=== PATIENT | male | born 1950 | race Caucasian/White ===

== ENCOUNTER 2020-07-17 12:54 | Outpatient (REF) | payer OTHER, SELFPAY ==
--- NOTE | 2020-07-17 12:58 | CT_ITS ---
EXAMINATION: CT HEAD WITHOUT CONTRAST CLINICAL INFORMATION: Dizziness and headaches COMPARISON: None TECHNIQUE: Contiguous axial imaging was performed from the skull base to vertex without intravenous administration of contrast. This CT examination was performed using dose optimization techniques as appropriate, variously including the following: *Automated exposure control *Adjustment of mA and/or kV according to patient size (this includes techniques or standardized protocols for targeted exams where dose is matched to indication/reason for exam; i.e. extremities or head) *Use of iterative reconstruction technique DLP: 86 mGy-cm FINDINGS: There is no evidence of acute intracranial hemorrhage or territorial infarction. No abnormal mass effect or midline shift is seen. Flores to white matter differentiation is well preserved. No extra-axial fluid collections are identified. The ventricles are normal in size. There is no abnormal attenuation within the brain parenchyma. The osseous structures and soft tissues are normal. The mastoid air cells and visualized portions of the paranasal sinuses are well aerated. CT/CT head/brain wo con IMPRESSION: No acute intracranial process seen.
== END 2020-07-17 12:55 | disposition home or self-care (01) ==
LOC: HO.CT 12:54
PROVIDERS: PCP Internal Medicine Geriatric Medicine; Visit Provider Nurse Practitioner Primary Care
DX: R42 Dizziness and giddiness (principal); R51.9 Headache, unspecified
CPT/HCPCS: 70450

== ENCOUNTER → 2020-07-19 14:06 | Outpatient (REF) | payer OTHER, SELFPAY ==
--- NOTE | 2020-07-19 14:00 | CA_ITS ---
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 The visually estimated ejection fraction is between 65-70%. - The basal inferior segment is hypokinetic. - There is mild mitral valve regurgitation. Findings Left Ventricle Normal left ventricular cavity size. There is mildly increased left ventricular wall thickness. The left ventricular systolic function is normal. The visually estimated ejection fraction is between 65-70%. There is no evidence of regional wall motion abnormalities. Diastolic function is normal for age. Wall Motion Rest Echo Findings The basal inferior segment is hypokinetic. Right Ventricle Normal right ventricular cavity size and systolic function. Atria The left atrium is normal in size. The right atrium is normal in size. Aortic Valve There is a normal trileaflet aortic valve. There is no aortic valve stenosis. There is no aortic valve regurgitation. Mitral Valve The mitral valve appears normal. There is mild mitral valve regurgitation. There is no mitral valve stenosis. Pulmonic Valve The pulmonic valve was not well visualized. Tricuspid Valve Normal tricuspid valve structure. There is trace tricuspid valve regurgitation. The pulmonary artery systolic pressure is normal. Great Vessels The aortic annulus, sinuses of valsalva, and asc aorta are normal in size. Venous The inferior vena cava is normal in size and collapses greater than 50% with inspiration. Pericardium/Pleural There is no evidence of pericardial effusion. Prior Study Comparison No prior study available for comparison. Measurements 2D Linear Measurements IVSd: 1.36 0.6-0.9/0.6-1.0 cm LVIDd: 4.54 3.9-5.3/4.2-5.9 cm LVIDd Index: 2.38 2.4-3.2/2.2-3.1 cm/m2 LVIDs: 2.81 2.0-3.6 cm LVPWd: 1.23 0.7-1.1 cm Ao Root: 3.60 2.1-3.5 cm LA Diam: 3.90 2.7-3.8/3.0-4.0 cm LAIDs Index: 2.04 1.5-2.3 cm/m2 LV Mass: 279.65 67-162/88-224 g LV Mass Index: 146.41 43-95/49-115 g/m2 LVOT Diam: 2.10 3.0+(-)1.3 cm Mitral Valve MV Pk E: 0.67 MV PK A: 0.78 MV Decel Time: 211.00 E/A: 0.90 E'Lateral: 10.60 E'Medial: 5.61 E/E' Med: 11.90 E/E' Lat: 6.30 PHT: 62.00 MVA PHT: 3.55 Decel Wagoner: 3.17 Aortic Valve AoV Pk Naman: 1.52 AoV Mn Naman: 0.90 AoV VTI: 0.30 AoV Pk Grad: 9.00 Aov Mn Grad: 4.00 FLACA Cont.VTI: 2.44 LVOT LVOT Pk Naman: 0.90 LVOT Mn Naman: 0.59 LVOT VTI: 0.21 LVOT Pk Grad: 3.00 LVOT Mn Grad: 2.00 LVOT Diam: 2.10 LVOT Area: 3.46 Diastolic Function MV Pk E: 0.67 MV Pk A: 0.78 E/A: 0.90 E'Medial: 5.61 E/E' Med: 11.90 E' Laterial: 10.60 E/E' Lat: 6.30 Tricuspid Valve TR Pk Naman: 2.23 TR Pk Grad: 20.00 RA Press: 3.00 RVSP: 23.00 Great Vessels Aorta Ao Root-2D: 3.60 2.0-3.7 cm Ao Asc: 3.10 2.1-3.4 cm Pulmonary Valve PV Pk Naman: 1.20 Peak PV Grad: 6.00 Updated in Other Vendor System with Status of Final Gabe Beauchamp MD electronically signed on 07/20/2020 10:24:57 AM with status of Final
== END ==
LOC: HO.CARD 14:06
PROVIDERS: Visit Provider Internal Medicine Geriatric Medicine
DX: I10 Essential (primary) hypertension (principal); I25.10 Atherosclerotic heart disease of native coronary artery without angina pectoris; R60.0 Localized edema
CPT/HCPCS: 93306

== ENCOUNTER 2020-11-24 15:39 | Outpatient (REF) | payer MEDICARE, SELFPAY ==
--- NOTE | ~2020-11-24 | US_ITS ---
EXAMINATION: US VENOUS ULTRASOUND WITH DOPPLER LOWER EXTREMITY, RIGHT CLINICAL INFORMATION: Right leg edema. COMPARISON: None TECHNIQUE: Ultrasound of the deep veins is performed from the hip to the calf with compression sonography and color and pulse Doppler assessment. Spectral analysis with color-flow imaging is performed. FINDINGS: There is normal venous compression and respiratory variation and augmented flow. The visualized common femoral vein, superficial femoral vein, profunda femoral vein, popliteal vein, and the trifurcation region shows no evidence of deep venous thrombosis. There is no significant popliteal fossa cyst. There is small joint effusion suspected. If the patient's symptoms persist, followup ultrasound in 5 days 7 days might be of value to exclude proximal propagation from a non-visualized calf vein. US/US venous duplex LE RT IMPRESSION: No DVT demonstrated in the right lower extremity. Suspect small joint effusion.
== END 2020-11-24 15:40 | disposition home or self-care (01) ==
LOC: HO.US 15:39
PROVIDERS: PCP Internal Medicine Geriatric Medicine; Visit Provider Internal Medicine Geriatric Medicine
DX: R60.0 Localized edema (principal)
CPT/HCPCS: 93971

== ENCOUNTER 2021-01-22 14:48 | Outpatient (REF) | payer MEDICARE, SELFPAY ==
--- NOTE | ~2021-01-22 | US_ITS ---
EXAMINATION: US VENOUS ULTRASOUND WITH DOPPLER LOWER EXTREMITY, RIGHT CLINICAL INFORMATION: Pain in the calf and knee COMPARISON: Previous exam November 2020 TECHNIQUE: Ultrasound of the deep veins is performed from the hip to the calf with compression sonography and color and pulse Doppler assessment. Spectral analysis with color-flow imaging is performed. FINDINGS: There is normal venous compression and respiratory variation and augmented flow. The visualized common femoral vein, superficial femoral vein, profunda femoral vein, popliteal vein, and the trifurcation region shows no evidence of deep venous thrombosis. There is a 4.6 x 1.2 x 1.6 cm Isaac's cyst. US/US venous duplex LE RT IMPRESSION: No DVT demonstrated in the right lower extremity. Isaac's cyst.
== END 2021-01-22 14:49 | disposition home or self-care (01) ==
LOC: HO.US 14:48
PROVIDERS: PCP Internal Medicine Geriatric Medicine; Visit Provider Nurse Practitioner Primary Care
DX: M79.661 Pain in right lower leg (principal)
CPT/HCPCS: 93971

== ENCOUNTER 2021-06-15 12:34 | Outpatient (REF) | payer MEDICARE, SELFPAY ==
--- NOTE | ~2021-06-15 | XR_ITS ---
EXAMINATION: XR FOOT, RIGHT CLINICAL INFORMATION: Pain right foot toes. COMPARISON: None TECHNIQUE: AP, lateral, and oblique views of the right foot. FINDINGS: Mild osteoarthrosis is noted at the first MTP joint. The bony alignments are intact. The cortices are intact. The soft tissues are unremarkable. 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
== END 2021-06-15 12:35 | disposition home or self-care (01) ==
LOC: HO.XRAY 12:34
PROVIDERS: Absent Provider Internal Medicine Geriatric Medicine; PCP Internal Medicine Geriatric Medicine; Visit Provider Internal Medicine
DX: M79.671 Pain in right foot (principal)
CPT/HCPCS: 73630

== ENCOUNTER 2023-02-17 08:56 | Outpatient (REF) | payer MEDICARE, SELFPAY | END 2023-02-17 08:57 | disposition home or self-care (01) | LOC: HO.HHCL 08:56 | PROVIDERS: Visit Provider Internal Medicine Geriatric Medicine | DX: Z12.5 Encounter for screening for malignant neoplasm of prostate (principal); N40.1 Benign prostatic hyperplasia with lower urinary tract symptoms; R35.1 Nocturia; Z79.899 Other long term (current) drug therapy | CPT/HCPCS: 36415; 80053; 80061; 84153 ==

== ENCOUNTER 2023-03-26 14:04 | Outpatient (AMB) | payer MEDICARE, SELFPAY ==
--- NOTE | 2023-03-26 14:17 | MHC.OFFVIS ---
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 He states doing some work on his water heater he was on a ladder, till the ladder slipped under him and he was trying to reach for the ladder. He reports that he was hanging by his arm causing the trauma to his elbow. Patient reports no pain, he was prescribed some topical cream to help with the pain but a lump appeared on his elbow. Denies numbness and tingling. 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 He states he was doing some work on his water heater climbed on a ladder when the ladder slipped, leaving him hanged by his arm while trying to reach the ladder and causing trauma to his elbow. He was seen by his PCP on 02/07/23 where he was prescribed a topical cream to help with his pain. He currently states he has no pain but he does have a lump on his elbow. He also c/o pain with applying pressure on his elbow and experiences discomfort with any movement. He denies any numbness or tingling. [facility] Social History (Updated 03/26/23 @ 14:30 by Penny Luna Jermaine) Alcohol intake: never Patient Tobacco Use Status: Never used Tobacco Current occupational status: disabled Current occupation: right hand dominant Review of Systems Const All systems reviewed & are unremarkable except as noted in HPI and below Physical Exam Vital Signs: BMI result Body Mass Index 28.7 Const General: cooperative, healthy appearing, comfortable, no acute distress, well developed and alert Orientation/consciousness: patient oriented x3 HEENT Head: Yes normal to inspection, Yes normocephalic and Yes atraumatic Eyes General: appearance normal, both eyes and all related structures Resp Effort & Inspection: normal respiratory effort and able to speak in complete sentences Cardio Rate: regular rate Peripheral pulses: Peripheral pulses 2+ throughout GI Palpation (GI): Soft to palpation Skin Lesions: no lesions Rashes: no rashes Neuro General: patient oriented x3 Extrem Other: Right elbow: Normal to inspection. He does have a trace olecranon bursitis. No redness, warmth or tenderness to palpation. He has full ROM without pain. NVI. Results Reviewed Results Reviewed: Xrays were obtained in the office today and personally reviewed by me of the right elbow show bone spur over the olecranon with possible avulsion fracture on the medial and lateral epicondyle Assessment & Plan Assessment & Plan (1) Bursitis of right elbow: Code(s): M70.31 - Other bursitis of elbow, right elbow Plan We discussed conservative management, which includes compression, NSAIDs and activity modifications. If symptoms worsen, the area becomes red, hot and painful, they should return to see me. Otherwise, PRN. Orders: Orders XR elbow RT min 3V 03/26/23 M25.521 - Pain in right elbow Patient Instructions: Scribed for Winston Rodriguez PA-C, by Angel Hadley medical insurance coding specialist, on 03/26/2023 at 2:00 PM EST. I, Winston Rodriguez PA-C, have personally reviewed and agree with the information entered by the scribe. Coding Level of Care Code New Pt Level 3 (22247) Diagnoses Bursitis of right elbow M70.31
[2023-03-26 14:30] VITALS: BMI 28.7
== END 2023-03-26 15:01 | disposition home or self-care (01) ==
PROVIDERS: PCP Internal Medicine Geriatric Medicine; Visit Provider Physician Assistant
DX: M70.31 Other bursitis of elbow, right elbow (principal)
CPT/HCPCS: 99203

== ENCOUNTER 2023-03-26 14:04 | Outpatient (REF) | payer MEDICARE, SELFPAY ==
--- NOTE | ~2023-03-26 | XR_ITS ---
EXAMINATION: XR ELBOW, RIGHT CLINICAL INFORMATION: Pain. COMPARISON: None available. TECHNIQUE: AP, lateral, and oblique views of the right elbow. FINDINGS: The bones and soft tissues are normal. No fracture or joint effusion. A small well-corticated accessory ossification center is noted adjacent to the bilateral humeral epicondyles. There is an enthesophyte arising from the olecranon process. There is soft tissue swelling adjacent to the olecranon process, suggestive of olecranon bursitis. Alignment is anatomic. The joint spaces are maintained. XR/XR elbow RT min 3V IMPRESSION: 1. No fracture, dislocation or right elbow joint effusion is seen. 2. Soft tissue swelling adjacent to the olecranon process suggests possible olecranon bursitis.
== END 2023-03-26 14:05 | disposition home or self-care (01) ==
LOC: HO.HOSX 14:04
PROVIDERS: PCP Internal Medicine Geriatric Medicine; Visit Provider Physician Assistant
DX: M25.521 Pain in right elbow (principal); M70.31 Other bursitis of elbow, right elbow
CPT/HCPCS: 73080; 99202

== ENCOUNTER 2023-07-07 14:55 | Outpatient (REF) | payer MEDICARE, SELFPAY ==
[2023-07-07 16:33] LABS: Anion Gap 11 (12-20); Blood Urea Nitrogen 13 mg/dL (9-16); Calcium 10.2 mg/dL (8.4-10.2); Carbon Dioxide 28 mmol/L (22-29); Chloride 101 mmol/L (96-108); Estimated Glomerular Filt Rate > 60; Glucose Random 99 mg/dL (60-115); Potassium 3.4 mmol/L (3.3-5.1); Sodium 137 mmol/L (135-145)
== END 2023-07-07 14:56 | disposition home or self-care (01) ==
LOC: HO.HHCL 14:55
PROVIDERS: Visit Provider Internal Medicine Geriatric Medicine
DX: I10 Essential (primary) hypertension (principal)
CPT/HCPCS: 36415; 80048

== ENCOUNTER 2024-03-16 10:12 | Outpatient (REF) | payer MEDICARE, SELFPAY ==
[2024-03-16 11:23] LABS: MANUAL DIFF FLAG NO
[2024-03-16 11:30] LABS: Basophils Percent Auto 0.5 % (0-2); Eosinophils Absolute Auto 0.6 X10*3/uL (0.0-0.4); Eosinophils Percent Auto 8.1 % (0-4); Hematocrit 46.9 % (42.0-52.0); Hemoglobin 16.2 g/dl (14.0-18.0); Imm Gran Abs Auto 0.03 X10*3/uL (0.00-0.03); Imm Gran Pct Auto 0.4 % (0.0-0.4); Lymphocytes Percent Auto 27.6 % (20-40); Mean Corpuscular HGB Conc 34.5 g/dl (31.0-36.0); Mean Corpuscular Hemoglobin 29.7 pg (27.0-33.0); Mean Corpuscular Volume 85.9 fL (80.0-98.0); Mean Platelet Volume 10.5 fL (9.4-12.4); Monocytes Absolute Auto 0.6 X10*3/uL (0.1-1.2); Monocytes Percent Auto 8.3 % (2-11); Neutrophils Percent Auto 55.1 % (45-73); Platelet Count 141 X10*3/uL (160-400); Red Blood Count 5.46 X10*6/uL (4.60-5.80); White Blood Count 7.3 X10*3/uL (4.8-10.8)
[2024-03-16 11:48] LABS: Alanine Aminotransferase 34 U/L (0-40); Albumin Level 4.3 g/dL (3.5-5.0); Alkaline Phosphatase 114 U/L (39-117); Anion Gap 12 (12-20); Aspartate Amino Transferase 26 U/L (5-37); Bilirubin Total 0.4 mg/dL (0.0-1.0); Blood Urea Nitrogen 14 mg/dL (9-16); Calcium 9.8 mg/dL (8.4-10.2); Carbon Dioxide 29 mmol/L (22-29); Chloride 103 mmol/L (96-108); Cholesterol 114 mg/dL (<200); Estimated Glomerular Filt Rate > 60; Glucose Random 97 mg/dL (60-115); HDL Cholesterol 60 mg/dL (>40); LDL Cholesterol Calculated 43 mg/dL (<100); Potassium 3.7 mmol/L (3.3-5.1); Sodium 140 mmol/L (135-145); Total Protein 6.7 g/dL (6.5-8.0); Triglycerides 58 mg/dL (<150)
== END 2024-03-16 10:13 | disposition home or self-care (01) ==
LOC: HO.HHCL 10:12
PROVIDERS: Visit Provider Internal Medicine Geriatric Medicine
DX: I10 Essential (primary) hypertension (principal); Z79.899 Other long term (current) drug therapy
CPT/HCPCS: 36415; 80053; 80061; 85025

== ENCOUNTER 2024-11-15 09:14 | Outpatient (REF) | payer OTHER, SELFPAY ==
--- OUTSIDE RECORDS SUMMARY | 2024-11-15 10:18 | XMS_ITS | Encounter Summary ---
Author Organization [facility] Address [address] [place] [address] Care Team Providers Care Turntable Engineer Name Role Phone Name, Braydon COLE Primary Care Provider [phone] Encounter Details Date Type Department Care Team (Late st Contact Info) Description 01/02/2023 Orders Only [facility] [address], [place] [id number] Xiomara Young LPN Social History Tobacco Use Types Packs/Day Years Used Date Smoking Tobacco: Never Assessed Sex and Gender Information Value Date Recorded Sex Assigned at Male 06/10/2022 10:17 AM EDT Legal Sex Male 10:17 AM EDT Gender Identity Male 06/10/2022 10:17 AM EDT Sexual Orientation Straight 06/10/2022 10 :17 AM EDT documented as of this encounter Plan of Treatment Not on file documented as of this encounter Visit Diagnoses Not on filedocumented in this encounter Care Teams Turntable Engineer Relationship Specialty Start Date End Date Name, MD Braydon [address] [place] [address] PCP - General Family Medicine 08/11/18 documented as of this encounter
--- OUTSIDE RECORDS SUMMARY | 2024-11-15 10:18 | XMS_ITS | Clinical Summary ---
Author Organization [employer] Address [address] [facility] [address] [place] [address] Care Team Providers Care Delivery Analyst Name Role Phone Name, Braydon COLE Primary Care Provider Allergies Active Allergy Reactions Criticality Noted Date Comments Penicillins Anaphylaxis,Swelling High 12/07/2009 Medications OXcarbazepine (Trileptal) 600 MG tablet TAKE 1 TABLET TWICE A DAY BY MOUTH FOR 90 DAYS 04/06/20 23 Active Diclofenac Sodium 1 % gel USE ONCE A DAY ON THE AFFECTED HAND 100 g 1 06/30/20 23 Active aspirin 81 MG EC tabletIndicatio ns:Transient Ischemic Attacks Take 81 mg by mouth Once per day. Active finasteride (Proscar) 5 MG tabletIndicatio ns:Benign prostatic hyperplasia, unspecified whether lower urinary tract symptoms present TAKE 1 TABLET BY MOUTH EVERY DAY 90 tablet 1 05/27/20 24 Active fluticasone (Flonase) 50 MCG/ACT nasal spray SPRAY 1 SPRAY INTO EACH NOSTRIL TODOS LOS MCGUIRE 48 mL 08/23/19 25 Active hydroCHLOROthia zide 12.5 MG tabletIndicatio ns:Hypertension , unspecified type TOME 1 TABLETA POR VIA ORAL TODOS [place] MCGUIRE 90 tablet 08/23/19 25 Active cetirizine (ZyrTEC) 10 MG tablet Take 1 tablet (10 mg) by mouth if needed each day for rhinitis. 30 tablet 3 10/07/19 25 026 Active guaiFENesin (Mucinex) 600 MG 12 hr tablet Take 2 tablets (1,200 mg) by mouth if needed in the morning and at bedtime for cough or congestion. Do not crush, chew, or split. 30 tablet 10/07/19 25 026 Active atorvastatin (Lipitor) 40 MG tabletIndicatio ns:High cholesterol TOME HALIE TABLETA TODOS [place] MCGUIRE 90 tablet 3 10/14/19 25 Active omeprazole (PriLOSEC) [address] capsuleIndicati ons:Heartburn TOME 1 CAPSULA POR VIA ORAL 30 MINUTES TO 1 HOUR BEFORE A MEAL 90 capsule 1 10/14/19 25 Active tamsulosin (Flomax) 0.4 MG 24 hr capsuleIndicati ons:Benign prostatic hyperplasia with nocturia TOME 2 CAPSULAS POR VIA ORAL AL ACOSTARSE 180 capsule 10/14/19 25 Active amLODIPine (Norvasc) 10 MG tabletIndicatio ns:Hypertension , unspecified type TAKE 1 TABLET BY MOUTH EVERY MORNING 90 tablet 1 10/21/19 25 Active albuterol 108 (90 Base) MCG/ACT inhaler INHALE DANDO 2 SOPLIDOS CADA 4 HORAS CUANDO SEA NECESARIO PARA LA FALTA DE RESPIRACION/LA SIBILANCIA 18 g 10/30/19 25 Active cyanocobalamin (Vitamin B-12) 1000 MCG tablet TOME 1 TABLETA POR VIA ORAL TODOS [place] MCGUIRE 90 tablet 1 11/02/19 25 Active amLODIPine (Norvasc) 10 MG tabletIndicatio ns:Hypertension , unspecified type TAKE 1 TABLET BY MOUTH EVERY MORNING 90 tablet 1 04/22/20 24 025 Discontinued cyanocobalamin (Vitamin B-12) 1000 MCG tablet TOME 1 TABLETA POR VIA ORAL TODOS [place] MCGUIRE 90 tablet 1 05/03/20 24 025 Discontinued albuterol 108 (90 Base) MCG/ACT inhaler Inhale 2 puffs every 4 (four) hours if needed for shortness of breath or wheezing. 18 g 10/07/19 25 025 Discontinued benzonatate (Tessalon Perles) 100 MG capsule Take 1 capsule (100 mg) by mouth if needed in the morning, at noon, and at bedtime for cough for up to 10 days. Do not crush or chew. 30 capsule 10/07/19 25 025 acetaminophen (Tylenol 8 Hour) 650 MG ER tablet Take 1 tablet (650 mg) by mouth every 8 (eight) hours if needed for mild pain. Do not crush, chew, or split. 40 tablet 1 10/07/19 25 025 Active Problems Problem Noted Date Diagnosed Date CVA (cerebrovascular accident) 03/15/2024 History of BPH 03/15/2024 Chronic knee pain 03/15/2024 Olecranon bursitis of right elbow 05/07/2023 Cerebrovascular accident (CVA) 02/07/2023 History of male genital system disorder 02/08/20 23 Myocardial infarction 02/07/2023 Synovial cyst of knee 02/07/2023 Coronary arteriosclerosis in patient with history of previous myocardial infarction 02/04/2022 CAD (coronary artery disease) 02/15/2021 Overview (02/07/2023): Last Assessment & Plan: The patient was noted to have mild coronary artery disease on her left heart catheterization done in 2015 after he presented to the hospital with a non- STEMI. Therefore, given the left heart catheterization results, no intervention was needed and medical management was recommended. The patient continues on medical therapy with aspirin, atorvastatin, and metoprolol. Subsequently, in July 2017, he underwent a nuclear stress test that did not show any evidence of ischemia or infarct. On today's visit, the patient tells me that he has been experiencing episodes of chest discomfort. The description of his symptoms is consistent with atypical chest discomfort. The patient visited the emergency room due to 1 of these episodes of chest discomfort. At this point, given his known coronary artery disease, I will proceed with a new stress test to rule out ischemia as a cause of the patient's symptoms. Given his baseline ECG abnormalities (nonspecific T wave abnormality in the inferolateral leads) I will order a stress echocardiogram. Dyslipidemia 02/15/2021 Overview (03/15/2024): Last Assessment & Plan: The patient has a history of hyperlipidemia. Recent lipid panel showed adequate cholesterol control. We will continue his current therapy with atorvastatin. Numbness of upper limb 09/16/2018 Benign prostatic hyperplasia with lower urinary tract symptoms 10/08/2016 Essential hypertension 10/08/2016 Overview (03/15/2024): Last Assessment & Plan: The patient has a history of arterial hypertension. The patient's blood pressure today was noted to be well controlled. We'll continue the current antihypertensive medication regimen. History of cholecystectomy 10/08/2016 Magnetic resonance imaging of brain abnormal History of pernicious anemia 03/07/2015 Overview (02/07/2023): Component Latest Ref Rng 03/03/2015 11:56 AM INTRINSIC FACTOR ANTIBODY 0.0-1.1 AU/mL 7.1 (A) Seizure disorder 03/03/2015 Vitamin B12 deficiency 12/26/2011 Allergic rhinitis 12/07/2009 Resolved Problems Problem Noted Date Diagnosed Date Resolved Date Chest pain 08/30/2014 03/18/2024 Encounters Date Type Department Care Team Description 11/12/2024 3:30 PM EDT Office Visit [facility] [address] [place] [address] Braydon Owusu MD Essential hypertension (Primary Dx); History of pneumonia; Benign prostatic hyperplasia with nocturia 11/12/2024 Travel 10/30/2024 Refill [facility] [address] [place] [address] Braydon Owusu MD 10/29/2024 Refill [facility] [address] [place] [address] Lily Watt DO 10/21/2024 Telephone [facility] [address] [place] [address] Braydon Owusu MD ER Follow-up 10/20/2024 Telephone [facility] [address] [place] [address] Braydon Owusu MD 10/20/2024 Refill [facility] [address] [place] [address] Braydon Owusu MD Hypertension, unspecified type 10/13/2024 Refill [facility] [address] [place] [address] Braydon Owusu MD High cholesterol; Heartburn; Benign prostatic hyperplasia with nocturia 10/07/2024 9:00 AM EST Office Visit [facility] [address] [place] [address] Lily Watt DO Influenza A (Primary Dx) 09/09/2024 Telephone [facility] [address] [place] [address] Farhana Tilley MA October recalls 08/21/2024 Refill [facility] [address] [place], [place] [phone] Name, MD Braydon Hypertension, unspecified type from Last 3 Months Immunizations Name Administration Dates Next Due Influenza High-dose Quadriva lent Preservative Free 06/18/2022,05/09/2020 Influenza injectable quadriv alent IIV4 with preservative 06/11/2017,07/12/2016 Influenza injectable quadriv alent preservative free 05/07/2023,06/25/2021,05/25/2015 Influenza, High Dose Seasona l, Preservative Free 04/23/2019 Influenza, IIV3, injectable 05/25/2015, 2,05/03/2010 Pneumococcal Conjugate PCV 13 06/11/2017 Pneumococcal Polysaccharide PPSV23 06/28/2019, TD (adult), 2 Lf tetanus tox oid, preservative free, adsorbed 06/14/2021 Tdap 12/18/2021,12/25/2010 Social History Tobacco Use Types Packs/Day Years Used Date Smoking Tobacco: Never Smokeless Tobacco: Never Tobacco Cessation:Counseling Given: Not Answered Alcohol Use Standard Drinks/Week Comments Never 0 (1 standard drink = 0.6 oz pur e alcohol) Depression Answer Date Recorded Patient Health Questionnaire-9 Score 3 11/12/2024 Patient Health Questionnaire-9 Score 3 11/12/2024 Last PHQ-9: Questionnaire Data Not on file 0 11/12/2024 Housing Stability Answer Date Recorded What is your housing situation today? I have casey samano 06/10/[address] you li ve. Do you have problems with any of the following? None of the above 06/10/2023 Food Insecurity Answer Date Recorded Within the past 12 months, y ou worried that your food would run out before you got money to buy more: Never True 06/10/2023 Within the past 12 months,th e food you bought just didn't last and you didn't have enough money to get more: Never True Transportation Answer Date Recorded In the past 12 months, has l ack of transportation kept you from medical appts, meetings, work or from getting things needed for daily living? No 06/10/2023 Utilities Answer Date Recorded In the past 12 months, has t he [employer], gas, oil or water company threatened to shut off services in your home? No 06/10/2023 Depression Answer Date Recorded Patient Health Questionnaire-2 Score 3 11/12/2024 Sex and Gender Information Value Date Recorded Sex Assigned at Male 06/10/2022 10:17 AM EDT Legal Sex Male 10:17 AM EDT Gender Identity Male 06/10/2022 10:17 AM EDT Sexual Orientation Straight 06/10/2022 10 :17 AM EDT Last Filed Vital Signs Vital Sign Reading Time Taken Comments Blood Pressure 119/68 11/12/2024 4:08 PM EDT Pulse 78 11/12/2024 3:45 PM EDT Temperature 36.7 ??C (98 ??F) 11/12/2024 3:45 PM EDT Respiratory Rate 12 11/12/2024 3:45 PM EDT Oxygen Saturation 94% 11/12/2024 3:45 PM EDT Inhaled Oxygen Concentration - - Weight 81.5 kg (179 lb 9.6 oz) 11/12/2024 3:45 P M EDT Height 167.6 cm (5' 6 ) 11/12/2024 3:45 PM EDT Body Mass Index 28.99 11/12/2024 3:45 PM EDT Plan of Treatment Health Maintenance Due Date Last Done Comments CT Colonography 1950 Colonoscopy 1950 Colorectal Cancer Screening 1950 FIT DNA/Cologuard 1951 FIT 1950 FOBT 1950 Sigmoidoscopy 1951 Alcohol/Substance Use Screening 1963 Hepatitis C Screening 12/09/1969 Zoster Vaccines (1 of 2) 12/09/2001 RSV Patients and Patients Aged 60 years or older (1 - Risk 60-74 years 1-dose series) 2011 SDOH Screening 02/08/2024 02/07/2023 COVID-19 Vaccine (4 - season) 2024 06/25/2022, 06/25/2021, 10/25/2020 Influenza Vaccine (#1) 2024 , 06/18/2022, 06/25/2021, Additional history exists Depression Screening 11/12/2025 11/12/2024, 11/13/19 Tobacco Screening 11/12/2025 11/12/2024 Lipid Panel 03/16/2029 03/16/2024, 02/08, 06/25/2022, Additional history exists DTaP/Tdap/Td Vaccines (4 - Td or Tdap) 12/19/2031 12/18/2021, 06/14/2021, 12/25/2010 Pneumococcal Vaccine: 50+ Years Completed 06/28/2019, 06/11/2017, 11/10/2016 HIB Vaccines Aged Out No longer eligi ble based on patient's age to complete this topic HPV Vaccines Aged Out No longer eligi ble based on patient's age to complete this topic Hepatitis A Vaccines Aged Out No long er eligible based on patient's age to complete this topic Hepatitis B Vaccines Aged Out No long er eligible based on patient's age to complete this topic IPV Vaccines Aged Out No longer eligi ble based on patient's age to complete this topic Meningococcal Vaccine Aged Out No ian quoc eligible based on patient's age to complete this topic RSV under 20 months Aged Out No longe r eligible based on patient's age to complete this topic Rotavirus Vaccines Aged Out No longer eligible based on patient's age to complete this topic Procedures Procedure Name Priority Date/Time Associated Diagnosis Comments POCT INFLUENZA B (ID NOW RAPID MOLECULAR) Routine 10/07/2024 9:06 AM EST Influenza A POCT INFLUENZA A (ID NOW RAPID MOLECULAR) Routine 10/07/2024 9:06 AM EST Influenza A POCT RAPID COVID ANTIGEN Routine 10/07/2024 9:06 AM EST Influenza A LIPID PANEL, STANDARD Routine 03/16/2024 10:14 AM EDT Essential hypertension On statin therapy from Last 3 Months or Most Recently Relevant to Health Maintenance Results * Influenza B (ID NOW Rapid Molecular) (10/07/2024 9:06 AM EST) Pathologist [facility] Influenza B Negative Negative, Indeterminate [facility] Swab 10/07/2024 9:06 AM EST Lily Watt DO POINT OF CARE TEST ENTER/JENNY T ORDERABLES Final Result Performing Organization Address [facility]/ZIP Co de Phone Number [facility] [address] [place] [phone] * (ABNORMAL) Influenza A (ID NOW Rapid Molecular) (10/07/2024 9:06 AM EST) Pathologist [facility] Influenza A Positive( A) Negative, Indeterminate [facility] Swab 10/07/2024 9:06 AM EST Lily Watt DO POINT OF CARE TEST ENTER/JENNY T ORDERABLES Final Result Performing Organization Address [facility]/ZIP Co de Phone Number [facility] [address] [place] [phone] * POCT Rapid COVID Ag (10/07/2024 9:06 AM EST) Rapid COVID Ag Negative [facility] Swab 10/07/2024 9:06 AM EST Lily Watt DO POINT OF CARE TEST ENTER/JENNY T ORDERABLES Final Result Performing Organization Address [facility]/ZIP Co de Phone Number [facility] [address] [place] [phone] * Lipid Panel, Standard (03/16/2024 10:14 AM EDT) Triglycerides 58 <150 mg/dL [facility] Comment:Desirable Triglyceri de: less than 150 mg/dLBorderline High Triglyceride 150-199 mg/dLHigh Triglyceride: 200-499 mg/dLVery High Triglyceride: greater than or equal to 5OO mg/dL Cholesterol 114 <200 mg/dL [facility] Comment:Desirable Cholestero l: less than 200 mg/dLBorderline High Cholesterol: 200-239 mg/dLHigh Cholesterol: greater than 239 mg/dL LDL Cholesterol Calculated 43 <100 mg/dL [facility] Comment:Desirable LDL: less than 100 mg/dLNear Optimal/Above Optimal LDL: 110- 129 mg/dLBorderline High LDL: 130-159 mg/dLHigh LDL: 160-189 mg/dLVery High LDL: greater than or equal to 190 mg/dL HDL Cholesterol 60 >40 mg/dL [facility] Comment:Desirable HDL: great er than 40 mg/dL Note: This HDL assay may give artificially low results in patients with liver disease. Blood Venous blood specimen / Unknown 03/16/2024 10:14 AM EDT 03/16/2024 11:14 AM EDT us Braydon Owusu MD LAB BLOOD ORDERABLES Final Resul t [facility] [address] [place] [phone] from Last 3 Months or Most Recently Relevant to Health Maintenance Insurance [facility] Care Teams Delivery Analyst Relationship Specialty Start Date End Date Name, MD Braydon [address] [place] [phone] PCP - General Family Medicine 08/11/18
--- OUTSIDE RECORDS SUMMARY | 2024-11-15 10:18 | XMS_ITS | Encounter Summary ---
Author Organization [facility] Address [address] [facility] 7[address] [place] [address] Care Team Providers Care Clinical Psychologist Name Role Phone Name, Braydon COLE Primary Care Provider [phone] Encounter Details Date Type Department Care Team (Latest Contact Info) Description 08/06/2021 Abstract [facility] CONVERSION[facility] Dental, Provider, DDS Social History Tobacco Use Types Packs/Day Years [...] on filedocumented in this encounter Care Teams Clinical Psychologist Relationship Specialty Start Date End Date Name, MD Braydon [address] [place] [phone] PCP - General Family Medicine 08/11/18 documented as of this encounter
--- OUTSIDE RECORDS SUMMARY | 2024-11-15 10:18 | XMS_ITS | Clinical Summary ---
Author Organization [facility] Address [address] [place] [address] Phone Care Team Providers Care Plastics Bench Mechanic Name Role Phone Name, Braydon COLE Primary Care Provider [phone] Allergies Active Allergy Reactions Criticality Noted Date Comments Penicillins Anaphylaxis,Swelling High 12/07/2009 Medications albuterol 2.5 mg /3 mL (0.083 %) nebulizer solutionIndica tions:Pneumoni a of right lower lobe due to infectious organism Take 3 mL (2.5 mg total) by nebulization every 6 (six) hours if needed for wheezing. 75 mL 5 11/20/19 25 Active doxycycline (VIBRAMYCIN) 100 mg capsule Take 1 capsule (100 mg total) by mouth 2 (two) times a day for 7 days. Take with at least 8 ounces (large glass) of water, do not lie down for 30 minutes after 14 each 5 10/28/19 25 Encounters Date Type Department Care Team Description 10/20/2024 12:13 AM EDT - 10/20/2024 3:33 AM EDT Emergency [facility] Emergency [address] [place] [address] Mario Taylor MD Pneumonia of right lower lobe due to infectious organism (Primary Dx) Discharge Disposition: Home or Self Care from Last 3 Months Surgical History Surgery Date Site/Laterality Comments HERNIA REPAIR PROCEDURE: HISTORICAL HERNIA REPAIR/ING COLONOSCOPY 06/14/2010 PROCEDURE: HI COLONOSCOPY FLX DX W/COLLJ SPEC WHEN PFRMD OTHER SURGICAL HISTORY PROCEDURE: HISTORY OTHER; COMMENT: Laparoscopic cholecystectomy Medical History Medical History Date Comments CVA (cerebrovascular accident) (CMS/HCC) DX:CVA (cerebrovascular accident) (HCC) History of BPH DX:History of BP H Seizure disorder (CMS/HCC) DX:Se izure disorder (HCC) Seasonal allergic rhinitis, unspecified trigger DX:Seasonal allergic rhiniti s, unspecified trigger B12 nutritional deficiency DX:B1 2 nutritional deficiency Leg edema DX:Leg edema Arm numbness DX:Arm numbness History of non anemic vitami n B12 deficiency DX:History of non anemic vit moe B12 deficiency Family History Medical History Relation Name Comments Cataracts Mother Blindness Neg Hx Glaucoma Neg Hx Macular degeneration Neg Hx Strabismus Neg Hx Relation Name Status Comments Brother 1 Alive Brother 2 Alive Daughter 1 Alive Daughter 2 Alive Father liver CA and al coholism Mother sinusitis Sister 1 [place] Sister 2 Alive Sister 3 Alive Sister 4 Alive Son 1 Alive Son 2 Alive Social History Tobacco Use Types Packs/Day Years Used Date Smoking Tobacco: Never Smokeless Tobacco: Never Alcohol Use Standard Drinks/Week Comments No 0 (1 standard drink = 0.6 oz pur e alcohol) Sex and Gender Information Value Date Recorded Sex Assigned at Male 10/20/2024 2:41 AM EDT Legal Sex Male 4:31 AM EST Gender Identity Male 10/20/2024 2:41 AM EDT Sexual Orientation Choose not to disclose 2024 2:41 AM EDT Obstetrics History Last Filed Vital Signs Vital Sign Reading Time Taken Comments Blood Pressure 156/73 10/19/2024 10:58 PM EDT Pulse 91 10/19/2024 10:58 PM EDT Temperature 36.8 ??C (98.2 ??F) 10/19/2024 10:58 PM E DT Respiratory Rate 18 10/19/2024 10:58 PM EDT Oxygen Saturation 95% 10/19/2024 10:58 PM EDT Inhaled Oxygen Concentration - - Weight 82.1 kg (181 lb) 10/19/2024 10:58 PM EDT Height 167.6 cm (5' 6 ) 10/19/2024 10:58 PM EDT Body Mass Index 29.21 10/19/2024 10:58 PM EDT Plan of Treatment Health Maintenance Due Date Last Done Comments Zoster Vaccines (1 of 2) 12/09/2001 Colorectal Cancer Screening: Colonoscopy 07/14/2022 Falls Risk Assessment 07/14/2022 Hepatitis C Screening 07/14/2022 Medicare Annual Wellness Visit 07/14/2022 Social Influencers of Health Screening 07/14/2022 Depression Screening 02/08/2024 02/07/2023 COVID-19 Vaccine ( - season) 2024 06/25/2022, 06/25/2021, 10/25/2020 Influenza Vaccine (Season Ended) 2025 05/07/2023, 06/18/2022, 06/25/2021, Additional history exists Hypertension/CHF/CAD Annual BMP Blood Test 10/19/2025 10/19/2024 RSV Immunization Adult Patients (1 - 1-dose 75+ series) 12/09/2026 Cholesterol Screening (Lipid Panel) 03/16/2029 03/16/2024 DTaP,Tdap,and Td Vaccines (4 - Td or Tdap) 12/19/2031 [...] on patient's age to complete this topic MMR Vaccines Aged Out No longer eligi ble based on patient's age to complete this topic Meningococcal ACWY Vaccine Aged Out N o longer eligible based on patient's age to complete this topic Meningococcal B Vacine Aged Out No lo nger eligible based on patient's age to complete this topic RSV Immunization Patients Under 20 months Aged Out No longer eligible based on patient's age to complete this topic Varicella Vaccines Aged Out No longer eligible based on patient's age to complete this topic Procedures Procedure Name Priority Date/Time Associated Diagnosis Comments RESPIRATORY VIRUS PANEL MOLECULAR STUDY STAT 10/20/2024 1:18 AM EDT XR CHEST 2 VIEWS STAT 10/20/2024 12:3 3 AM EDT ECG ANNOTATED 10/20/2024 CBC WITH AUTO DIFFERENTIAL STAT 10/19/2024 11:21 PM EDT BASIC METABOLIC PANEL STAT 10/19/2024 11:21 PM EDT CBC AND DIFFERENTIAL STAT 10/19/2024 11:21 PM EDT ECG 12-LEAD STAT 10/19/2024 11:17 PM EDT from Last 3 Months Results * Respiratory virus panel molecular study (10/20/2024 1:18 AM EDT) Pathologist [facility] Adenovirus Detection by PCR Not Detected Not Detected LAB MICROBIOLOGY METHOD 10/20/2024 2:18 AM EDT [facility] Influenza A PCR Not Detected Not Detected LAB MICROBIOLOGY METHOD 10/20/2024 2:18 AM EDT [facility] Influenza B PCR Not Detected Not Detected LAB MICROBIOLOGY METHOD 10/20/2024 2:18 AM EDT [facility] Coronavirus 229E Not Detected Not Detected LAB MICROBIOLOGY METHOD 10/20/2024 2:18 AM EDT [facility] Coronavirus HKU1 Not Detected Not Detected LAB MICROBIOLOGY METHOD 10/20/2024 2:18 AM EDT [facility] Coronavirus OC43 Not Detected Not Detected LAB MICROBIOLOGY METHOD 10/20/2024 2:18 AM EDT [facility] Coronavirus NL63 Not Detected Not Detected LAB MICROBIOLOGY METHOD 10/20/2024 2:18 AM EDT [facility] Parainfluenza Virus 1 Not Detected Not Detected LAB MICROBIOLOGY METHOD 10/20/2024 2:18 AM EDT [facility] Parainfluenza Virus 2 Not Detected Not Detected LAB MICROBIOLOGY METHOD 10/20/2024 2:18 AM EDT [facility] Parainfluenza Virus 3 Not Detected Not Detected LAB MICROBIOLOGY METHOD 10/20/2024 2:18 AM EDT [facility] Parainfluenza Virus 4 Not Detected Not Detected LAB MICROBIOLOGY METHOD 10/20/2024 2:18 AM EDT [facility] RSV PCR Not Detected Not Detected LAB MICROBIOLOGY METHOD 10/20/2024 2:18 AM EDT [facility] Human Metapneumovirus A and B Not Detected Not Detected LAB MICROBIOLOGY METHOD 10/20/2024 2:18 AM EDT [facility] Rhinovirus/Entero virus Not Detected Not Detected LAB MICROBIOLOGY METHOD 10/20/2024 2:18 AM EDT [facility] Bordetella pertussis Not Detected Not Detected LAB MICROBIOLOGY METHOD 10/20/2024 2:18 AM EDT [facility] Bordetella parapertussis Not Detected Not Detected LAB MICROBIOLOGY METHOD 10/20/2024 2:18 AM EDT [facility] Mycoplasma pneumo by PCR Not Detected Not Detected LAB MICROBIOLOGY METHOD 10/20/2024 2:18 AM EDT [facility] Chlamydia pneumoniae Not Detected Not Detected LAB MICROBIOLOGY METHOD 10/20/2024 2:18 AM EDT [facility] SARS COV-2 Not Detected Not Detected LAB MICROBIOLOGY METHOD 10/20/2024 2:18 AM T [facility] Swab Both anterior nares / Unknown Non-blood Collection / Unknown 10/20/2024 1:18 AM EDT 10/20/2024 1:25 AM EDT [facility] - 10/20/2024 2:18 AM EDT Testing was performed using the [employer] Respiratory Pathogen PCR Assay. All results must be correlated with the clinical findings. Results should not be used as the sole basis for diagnosis. False Negative results may occur from the presence of sequence variants in the region targeted by the assay or the presence of inhibitors. Results may be affected by concurrent antiviral/antimicrobial therapy or levels of organisms that are below the limit of detection. us Mario Taylor MD LAB MICROBIOLOGY - GENERAL [place] Final Result [facility] LAB [address] [place] [address], [place] [phone] * XR Chest 2 Views (10/20/2024 12:33 AM EDT) Anatomical Region Laterality Modality Body Radiographic Guera ging 10/20/2024 6:52 AM EDT Impressions 10/20/2024 6:54 AM EDT No acute pneumonia. I suspect previous granulomatous disease. ??No suspicious interval change -------- FINAL REPORT -------- Dictated By: Haroon Solis Dictated Date: 10/20/2024 06:52 ET Assigned Physician: Haroon Solis Reviewed and Electronically Signed By: Haroon Solis Signed Date: 10/20/2024 06:54 ET Workstation ID: [id number] Transcribed By: Self Edit Transcribed Date: 10/20/2024 06:52 ET Narrative 10/20/2024 6:54 AM EDT EXAMINATION: CHEST CLINICAL INFORMATION: Dyspnea COMPARISON: Frontal view 03/25/2022 TECHNIQUE: 2 views of the chest FINDINGS: There is tortuosity of the aorta. ??The cardiac size is within normal limits. ??There is no hilar mass. ??No edema. No consolidation or major zone of atelectasis. ??Mild unchanged interstitial prominence. ??There are a few scattered probably calcified granulomata which appear unchanged. ??There are a few increased markings superimposing over the anterior right 3rd rib unchanged. The pleural margins are within normal limits. No suspicious focal bony lesions. Procedure Note Haroon Solis MD - 10/20/2024 EXAMINATION: CHEST CLINICAL INFORMATION: Dyspnea COMPARISON: Frontal view 03/25/2022 TECHNIQUE: 2 views of the chest FINDINGS: There is tortuosity of the aorta. The cardiac size is within normallimits. There is no hilar mass. No edema. No consolidation or major zone of atelectasis. Mild unchangedinterstitial prominence. There are a few scattered probably calcifiedgranulomata which appear unchanged. There are a few increased markingssuperimposing over the anterior right 3rd rib unchanged. The pleural margins are within normal limits. No suspicious focal bony lesions. IMPRESSION: No acute pneumonia. I suspect previous granulomatous disease. No suspicious interval change -------- FINAL REPORT -------- Dictated By: Haroon Solis Dictated Date: 10/20/2024 06:52 ET Assigned Physician: Haroon Solis Reviewed and Electronically Signed By: Haroon Solis Signed Date: 10/20/2024 06:54 ET Workstation ID: [id number] Transcribed By: Self Edit Transcribed Date: 10/20/2024 06:52 ET us Scot A Brandon COLE IMG XR PROCEDURES Final Result * ECG-Annotated (10/20/2024) us Provider Onbase ECG ORDERABLES Final Result * (ABNORMAL) CBC auto differential (10/19/2024 11:21 PM EDT) WBC 12.1(H) 4.8 - 10.8 K/mcL LAB HEMETOLOGY METHOD 10/20/2024 12:12 AM [facility] RBC 4.80 4.50 - 5.50 M/mcL LAB HEMETOLOGY METHOD 10/20/2024 12:12 AM [facility] Hemoglobin 14.3 13.5 - 17.5 g/dL LAB HEMETOLOGY METHOD 10/20/2024 12:12 AM [facility] Hematocrit 39.9(L) 42.0 - 54.0 % LAB HEMETOLOGY METHOD 10/20/2024 12:12 AM [facility] MCV 83.0 79.0 - 98.0 FL LAB HEMETOLOGY METHOD 10/20/2024 12:12 AM [facility] MCH 29.7 27.0 - 32.0 pcg LAB HEMETOLOGY METHOD 10/20/2024 12:12 AM [facility] MCHC 35.8 32.0 - 37.0 g/dL LAB HEMETOLOGY METHOD 10/20/2024 12:12 AM [facility] RDW 12.4 11.0 - 15.0 % LAB HEMETOLOGY METHOD 10/20/2024 12:12 AM [facility] Platelets 209 130 - 400 K/mcL LAB HEMETOLOGY METHOD 10/20/2024 12:12 AM [facility] MPV 10.2 7.0 - 11.0 FL LAB HEMETOLOGY METHOD 10/20/2024 12:12 AM [facility] NRBC 0.0 <1.0 % LAB HEMETOLOGY METHOD 10/20/2024 12:12 AM [facility] NRBC Absolute 0.00 <0.10 K/mcL LAB HEMETOLOGY METHOD 10/20/2024 12:12 AM [facility] Neutrophils Relative 69.3 % LAB HEMETOLOGY METHOD 10/20/2024 12:12 AM [facility] Lymphocytes Relative 15.8 % LAB HEMETOLOGY METHOD 10/20/2024 12:12 AM [facility] Monocytes Relative 11.2 % LAB HEMETOLOGY METHOD 10/20/2024 12:12 AM [facility] Eosinophils Relative 2.7 % LAB HEMETOLOGY METHOD 10/20/2024 12:12 AM [facility] Basophils Relative 0.5 % LAB HEMETOLOGY METHOD 10/20/2024 12:12 AM [facility] Immature Granulocytes Relative 0.5 % LAB HEMETOLOGY METHOD 10/20/2024 12:12 AM [facility] Neutrophils Absolute 8.39(H) 1.50 - 7.00 K/mcL LAB HEMETOLOGY METHOD 10/20/2024 12:12 AM EDT [facility] Lymphocytes Absolute 1.91 1.00 - 5.00 K/mcL LAB HEMETOLOGY METHOD 10/20/2024 12:12 AM EDT [facility] Monocytes Absolute 1.35(H) 0.20 - 1.00 K/mcL LAB HEMETOLOGY METHOD 10/20/2024 12:12 AM EDT [facility] Eosinophils Absolute 0.33 0.00 - 0.50 K/mcL LAB HEMETOLOGY METHOD 10/20/2024 12:12 AM EDT [facility] Basophils Absolute 0.06 0.00 - 0.20 K/mcL LAB HEMETOLOGY METHOD 10/20/2024 12:12 AM [facility] Immature Granulocytes Absolute 0.06(H) 0.00 - 0.03 K/mcL LAB HEMETOLOGY METHOD 10/20/2024 12:12 AM [facility] Blood Venous blood specimen / Unknown Venipuncture / Unknown 10/19/2024 11:21 PM EDT 10/20/2024 12:08 AM EDT us Mario Taylor MD LAB BLOOD ORDERABLES Final Resu lt [facility] [address] [place] [address], * (ABNORMAL) Basic metabolic panel (10/19/2024 11:21 PM EDT) Sodium 134 133 - 145 mmol/L LAB CHEMISTRY METHOD 10/20/2024 1:04 AM [facility] Potassium 3.3(L) 3.5 - 5.5 mmol/L LAB CHEMISTRY METHOD 10/20/2024 1:04 AM [facility] Chloride 97 96 - 110 mmol/L LAB CHEMISTRY METHOD 10/20/2024 1:04 AM T [facility] CO2 28 21 - 32 mmol/L LAB CHEMISTRY METHOD 10/20/2024 1:04 AM [facility] Anion Gap 9 3 - 11 LAB CHEMISTRY METHOD 10/20/2024 1:04 AM [facility] Glucose 129(H) 70 - 100 mg/dL LAB CHEMISTRY METHOD 10/20/2024 1:04 AM [facility] BUN 11 5 - 25 mg/dL LAB CHEMISTRY METHOD 10/20/2024 1:04 AM [facility] Creatinine 1.07 0.70 - 1.30 mg/dL LAB CHEMISTRY METHOD 10/20/2024 1:04 AM [facility] eGFR 74 >=60 mL/min/1. 73m2 LAB CHEMISTRY METHOD 10/20/2024 1:04 AM [facility] Comment:Calculation based on the??Chronic Kidney Disease Epidemiology Collaboration (CKD-EPI) equation refit??without adjustment for race. BUN/Creatinine Ratio 10.3 LAB CHEMISTRY METHOD 10/20/2024 1:04 AM [facility] Calcium 9.3 8.5 - 10.5 mg/dL LAB CHEMISTRY METHOD 10/20/2024 1:04 AM [facility] Blood Venous blood specimen / Unknown Venipuncture / Unknown 10/19/2024 11:21 PM EDT 10/20/2024 12:08 AM EDT us Mario Taylor MD LAB BLOOD ORDERABLES Final Resu lt [facility] [address] [place] [address], * ECG 12 lead (10/19/2024 11:17 PM EDT) Ventricular Rate ECG 78 BPM GEMUSE Atrial Rate 78 BPM GEMUSE P-R Interval 162 ms GEMUSE QRS Duration 88 ms GEMUSE Q-T Interval 368 ms GEMUSE QTc 419 ms GEMUSE P Wave [place] 54 degrees GEMUSE R [place] 46 degrees GEMUSE T [place] 18 degrees GEMUSE ECG Interpretation Normal sinus rhythm T wave abnormality, consider lateral ischemia Abnormal ECG When compared with ECG of 25-MAR-2022 20:19, No significant change was found Confirmed by Gini BURGOS JAMES ([id number]) on 10/20/2024 3:15:31 PM GEMUSE 10/19/2024 11:1 7 PM EDT 10/20/2024 3:15 PM EDT us Scot Jermaine Taylor MD ECG ORDERABLES Final Result [facility] from Last 3 Months Insurance [employer] Member Subscriber Plan / Payer (Ef fective 2024-Present) Name:Bipin Devine Relation to Subscriber:Self Name:Bipin Devine Payer ID:[id number] Group ID:Not on file Type:Not on file Address: [place] [address] [address] [address] Care Teams Plastics Bench Mechanic Relationship Specialty Start Date End Date Name, MD Braydon [address] [place], [place] PCP - General Internal Medicine 05/28/16
--- OUTSIDE RECORDS SUMMARY | 2024-11-15 10:18 | XMS_ITS | Encounter Summary ---
Author Organization [facility] Address [address] [facility] [address] [place] [address] Care Team Providers Care Research Phlebotomist Name Role Phone Name, Braydon COLE Primary Care Provider [phone] Encounter Details Date Type Department Care Team (Late st Contact Info) Description 10/07/2022 Orders Only [facility] [address] [place], [place] [id number] Xiomara Young LPN Social History Tobacco Use [...] on filedocumented in this encounter Care Teams Research Phlebotomist Relationship Specialty Start Date End Date Name, MD Braydon [address] [place] [address] PCP - General Family Medicine 08/11/18 documented as of this encounter
--- OUTSIDE RECORDS SUMMARY | 2024-11-15 10:18 | XMS_ITS | Encounter Summary ---
Author Organization [facility] Address [address] [address] [place] [address] Care Team Providers Care Water And Fire Technician Name Role Phone Name, Braydon COLE Primary Care Provider [phone] Encounter Details Date Type Department Care Team (Late st Contact Info) Description 11/11/2022 Orders Only [facility] [address] [place], [place] [phone] Xiomara Young LPN Social History Tobacco Use [...] on filedocumented in this encounter Care Teams Water And Fire Technician Relationship Specialty Start Date End Date Name, MD Braydon [address] [place] [address] PCP - General Family Medicine 08/11/18 documented as of this encounter
--- OUTSIDE RECORDS SUMMARY | 2024-11-15 10:18 | XMS_ITS | Encounter Summary ---
Author Organization [facility] Address [address] [address] [place] [address] Care Team Providers Care Um Specialist Name Role Phone Name, Braydon COLE Primary Care Provider [phone] Encounter Details Date Type Department Care Team (Latest Contact Info) Description 04/02/2019 Abstract [facility] CONVERSIONS Dental, Provider, DDS Social History Tobacco [...] on filedocumented in this encounter Care Teams Um Specialist Relationship Specialty Start Date End Date Name, MD Braydon [address] [place] [id number] PCP - General Family Medicine 08/11/18 documented as of this encounter
--- OUTSIDE RECORDS SUMMARY | 2024-11-15 10:18 | XMS_ITS | Data Portability ---
Author Organization Formerly [facility] [employer] Address [address] [place] [address] Care Team Providers Care Racing Secretary Name Role Phone NAME, AC Referring Provider Unavailable NAME, AC Primary Care Provider [phone] Assessment Encounter Date Assessment Date Assessment LastModified by Organization Details LastModified Time 01/10/2022 01/10/2022 IMPRESSION --generalized seizure witnessed by Thursday, February 04, 2021 after being off of his medication for reason of running out after evening , February 01, 2021. -- Previously seizure-free on oxcarbazepine 450 mg twice daily started in the context of a single event of abnormal movements out of sleep February 2015, witnessed by his , diagnosed as seizure at [facility], with nonspecific small foci of gadolinium uptake of uncertain significance found on brain MRI during that hospitalization, with changing foci on repeat brain MRI May 29, 2015. --Early 2018 onset of brief shocks going down the right arm. CONCERNING SEIZURE: As his breakthrough seizure January 2021 occurred when he was off medication because he ran out of medication, there was no definitive indication to increase from 450 mg twice a day up to 600 mg twice a day. He decided he wanted to stay at the increased dose at February 2021 appointment and he continues with this decision as he has no side effects. I agree if this gives him more protection against seizures. There have been concerning abnormalities of two types on repeat brain MRIs, small foci of gadolinium uptake of uncertain significance that have been in different regions of the brain on different repeat brain MRIs; and a left medial temporal lobe fullness with increased T2/flair signal present all the way back to initial February 2015 MRI imaging but only detailed on most recent imaging April 26, 2019. I know of no imaging more recent than that and therefore I will get repeat imaging for monitoring. To review, workup of etiology of events surrounding seizure: the initial event of concern seems certain to have been a seizure, given his 's description Relationship of his single seizure To brain MRI abnormalities that have been observed is plausible but not definitive. CONCERNING BRAIN LESIONS THAT HAVE HAD CONTRAST ENHANCEMENT WHICH HAS RESOLVED: Etiology is uncertain of brain MRI findings of small (up to 6 mm) foci of enhancement, at least once shifting in region (February 25, 2015 2 May 29, 2015: 1 of 2 left parietal regions resolving, right frontal region emerging). Enhancement that was seen on 3 brain MRIs February 2015 through May 2016 is resolved on 2019 MRI. Lesions of unknown etiology that seemed to be acute across those studies now seems chronic. Neoplastic etiology has been made less likely with negative cytopathology results on CSF, and shifting MRI enhancing foci almost excludes neoplasm--althoug h REHABILITATION ASSISTANT lymphoma can theoretically fluctuate. Autoimmune etiology is less likely with unrevealing results for NMDA-R and VGKC antibody assays, although more rare autoimmune etiology is not excluded; shifting foci is consistent with autoimmune etiology. As the patient has not been ill-appearing over the time span across MRI studies that have reflected these results, the situation is atypical for Septic emboli. I am not clear if there has been complete cardiac evaluation including heart monitoring. I would defer to primary care or cardiology for further investigation in this direction that might be indicated. CONCERNING SHOCKLIKE SYMPTOMS: His right upper extremity episodes of brief shocks reported April 2019 are of uncertain etiology. Exam continues unrevealing. These were not subject of his discussion today. No change in management is indicated. PLAN Bipin Mcgrath January 10, 2022 Brain MRI with and without gadolinium, seizure protocol, with history of seizures, compared to previous studies including April 26, 2019 brain MRI where there was left medial temporal lobe abnormality, with studies also showing small nonspecific regions of gadolinium uptake in different places on different studies [facility] [address] [place] [address] The imaging facility should call you within a few days. If they do not call within a week, please call them to understand when you will be scheduled for your imaging. If there is any uncertainty or confusion, please call us to help clarify things. To prevent seizures: CONTINUE Oxcarbazepine (brand name Trileptal) 300 mg tablet 2 tablets twice daily Follow-up after imaging with Sarah Julius, neurology PA; please bring someone from your adventism who can help translate even though Sarah Madrid does speak Anguillan. Brandon Inman MD, PhD [facility] mikel Not available 01/10/2022 13:08:21 10/03/2022 10/03/2022 IMPRESSION --generalized seizure witnessed by Friday, February 04, 2021 after being off of his medication for reason of running out after evening , February 01, 2021. -- Previously seizure-free on oxcarbazepine 450 mg twice daily started in the context of a single event of abnormal movements out of sleep February 2015, witnessed by his , diagnosed as seizure at [facility], with nonspecific small foci of gadolinium uptake of uncertain significance found on brain MRI during that hospitalization, with changing foci on repeat brain MRI May 29, 2015. --Early 2019 onset of brief shocks going down the right arm. CURRENTLY October 03, 2022: He has not had any breakthrough seizures since he was last seen, last breakthrough January 2021 occurred off of medication. He presently remains on oxcarbazepine 600 mg twice daily. MRI of the brain has been repeated with and without gadolinium on April 06, 2022 which was compared to April 26, 2019. There is no new finding or abnormal enhancement. The previously noted T2 signal seen in the right middle frontal gyrus was not appreciated on the new study and the subtle hyperintense FLAIR signal along the left posterior parietal cortex has further decreased. Discussed the findings with Dr. Inman; etiology remains uncertain however it is assuring that there are no new lesions, no abnormal enhancement and prior chronic lesions resolved/resolvin g. No need for further surveillance MRIs barring any change in his examination. We will not make any changes. CONCERNING SEIZURE: October 03, 2022: Stable on oxcarbazepine 600 mg twice daily. I have reviewed archive and current EMR and have not found recent BMP. We will request it from his lab or PCP with any level dating back to his increase oxcarbazepine after January 2021 January 10, 2022: As his breakthrough seizure January 2021 occurred when he was off medication because he ran out of medication, there was no definitive indication to increase from 450 mg twice a day up to 600 mg twice a day. He decided he wanted to stay at the increased dose at February 2021 appointment and he continues with this decision as he has no side effects. I agree if this gives him more protection against seizures. There have been concerning abnormalities of two types on repeat brain MRIs, small foci of gadolinium uptake of uncertain significance that have been in different regions of the brain on different repeat brain MRIs; and a left medial temporal lobe fullness with increased T2/flair signal present all the way back to initial February 2015 MRI imaging but only detailed on most recent imaging April 26, 2019. I know of no imaging more recent than that and therefore I will get repeat imaging for monitoring. To review, workup of etiology of events surrounding seizure: the initial event of concern seems certain to have been a seizure, given his 's description Relationship of his single seizure To brain MRI abnormalities that have been observed is plausible but not definitive. CONCERNING BRAIN LESIONS THAT HAVE HAD CONTRAST ENHANCEMENT WHICH HAS RESOLVED: October 03, 2021: MRI of the brain has been repeated with and without gadolinium on April 06, 2022 which was compared to April 26, 2019. There is no new finding or abnormal enhancement. The previously noted T2 signal seen in the right middle frontal gyrus was not appreciated on the new study and the subtle hyperintense FLAIR signal along the left posterior parietal cortex has further decreased. Discussed this findings with Dr. Inman; etiology remains uncertain however it is assuring that there are no new lesions, no abnormal enhancement and prior chronic lesions resolved/resolvin g. No need for further surveillance MRIs barring any change in his examination. Review of January 10 2022 discussion: Etiology is uncertain of brain MRI findings of small (up to 6 mm) foci of enhancement, at least once shifting in region (February 25, 2015 2 May 29, 2015: 1 of 2 left parietal regions resolving, right frontal region emerging). Enhancement that was seen on 3 brain MRIs February 2015 through May 2016 is resolved on 2019 MRI. Lesions of unknown etiology that seemed to be acute across those studies now seems chronic. Neoplastic etiology has been made less likely with negative cytopathology results on CSF, and shifting MRI enhancing foci almost excludes neoplasm--althoug h REHABILITATION ASSISTANT lymphoma can theoretically fluctuate. Autoimmune etiology is less likely with unrevealing results for NMDA-R and VGKC antibody assays, although more rare autoimmune etiology is not excluded; shifting foci is consistent with autoimmune etiology. As the patient has not been ill-appearing over the time span across MRI studies that have reflected these results, the situation is atypical for Septic emboli. I am not clear if there has been complete cardiac evaluation including heart monitoring. I would defer to primary care or cardiology for further investigation in this direction that might be indicated. CONCERNING SHOCKLIKE SYMPTOMS: His right upper extremity episodes of brief shocks reported April 2019 are of uncertain etiology. Exam continues unrevealing. These were not subject of his discussion today. No change in management is indicated. PLAN Bipin Mcgrath October 03, 2022 To prevent seizures: CONTINUE Oxcarbazepine (brand name Trileptal) 300 mg tablet 2 tablets twice daily Follow-up in 6 months, please continue to bring someone from your adventism who can assist with Anguillan translation Discussed with Dr. Inman, impression and plan developed with him. lissette Not available 04/08/2023 19:02:14 04/08/2023 04/08/2023 IMPRESSION --generalized seizure witnessed by Friday, February 04, 2021 after being off of his medication for reason of running out after evening , February 01, 2021. -- Previously seizure-free on oxcarbazepine 450 mg twice daily started in the context of a single event of abnormal movements out of sleep February 2015, witnessed by his , diagnosed as seizure at [facility], with nonspecific small foci of gadolinium uptake of uncertain significance found on brain MRI during that hospitalization, with changing foci on repeat brain MRI May 29, 2015. --Early 2019 onset of brief shocks going down the right arm. CURRENTLY April 08, 2023: He has been stable on oxcarbazepine 600 mg twice daily without breakthrough seizure. We will continue it. He has not had changes in neurologic examination. He has not had new neurologic symptoms and his neurologic examination remains normal. He prefers to follow-up in 6 months (rather than annual/11-month follow-ups) for neurologic examinations to make sure that there has not been any change in the context of prior abnormal MRIs. REVIEW of October 03, 2022 with discussion regarding most recent brain MRI: He has not had any breakthrough seizures since he was last seen, last breakthrough January 2021 occurred off of medication. He presently remains on oxcarbazepine 600 mg twice daily. MRI of the brain has been repeated with and without gadolinium on April 06, 2022 which was compared to April 26, 2019. There is no new finding or abnormal enhancement. The previously noted T2 signal seen in the right middle frontal gyrus was not appreciated on the new study and the subtle hyperintense FLAIR signal along the left posterior parietal cortex has further decreased. Discussed the findings with Dr. Inman; etiology remains uncertain however it is assuring that there are no new lesions, no abnormal enhancement and prior chronic lesions resolved/resolvin g. No need for further surveillance MRIs barring any change in his examination. We will not make any changes. CONCERNING SEIZURE: April 08, 2023: Stable on oxcarbazepine 600 mg twice daily. October 03, 2022: Stable on oxcarbazepine 600 mg twice daily. I have reviewed archive and current EMR and have not found recent BMP. We will request it from his lab or PCP with any level dating back to his increase oxcarbazepine after January 2021 January 10, 2022: As his breakthrough seizure January 2021 occurred when he was off medication because he ran out of medication, there was no definitive indication to increase from 450 mg twice a day up to 600 mg twice a day. He decided he wanted to stay at the increased dose at February 2021 appointment and he continues with this decision as he has no side effects. I agree if this gives him more protection against seizures. There have been concerning abnormalities of two types on repeat brain MRIs, small foci of gadolinium uptake of uncertain significance that have been in different regions of the brain on different repeat brain MRIs; and a left medial temporal lobe fullness with increased T2/flair signal present all the way back to initial February 2015 MRI imaging but only detailed on most recent imaging April 26, 2019. I know of no imaging more recent than that and therefore I will get repeat imaging for monitoring. To review, workup of etiology of events surrounding seizure: the initial event of concern seems certain to have been a seizure, given his 's description Relationship of his single seizure To brain MRI abnormalities that have been observed is plausible but not definitive. CONCERNING BRAIN LESIONS THAT HAVE HAD CONTRAST ENHANCEMENT WHICH HAS RESOLVED: October 03, 2021: MRI of the brain has been repeated with and without gadolinium on April 06, 2022 which was compared to April 26, 2019. There is no new finding or abnormal enhancement. The previously noted T2 signal seen in the right middle frontal gyrus was not appreciated on the new study and the subtle hyperintense FLAIR signal along the left posterior parietal cortex has further decreased. Discussed this findings with Dr. Inman; etiology remains uncertain however it is assuring that there are no new lesions, no abnormal enhancement and prior chronic lesions resolved/resolvin g. No need for further surveillance MRIs barring any change in his examination. Review of January 10 2022 discussion: Etiology is uncertain of brain MRI findings of small (up to 6 mm) foci of enhancement, at least once shifting in region (February 25, 2015 2 May 29, 2015: 1 of 2 left parietal regions resolving, right frontal region emerging). Enhancement that was seen on 3 brain MRIs February 2015 through May 2016 is resolved on 2019 MRI. Lesions of unknown etiology that seemed to be acute across those studies now seems chronic. Neoplastic etiology has been made less likely with negative cytopathology results on CSF, and shifting MRI enhancing foci almost excludes neoplasm--althoug h REHABILITATION ASSISTANT lymphoma can theoretically fluctuate. Autoimmune etiology is less likely with unrevealing results for NMDA-R and VGKC antibody assays, although more rare autoimmune etiology is not excluded; shifting foci is consistent with autoimmune etiology. As the patient has not been ill-appearing over the time span across MRI studies that have reflected these results, the situation is atypical for Septic emboli. I am not clear if there has been complete cardiac evaluation including heart monitoring. I would defer to primary care or cardiology for further investigation in this direction that might be indicated. CONCERNING SHOCKLIKE SYMPTOMS: His right upper extremity episodes of brief shocks reported April 2019 are of uncertain etiology. Exam continues unrevealing. These were not subject of his discussion today. No change in management is indicated. PLAN [facility] April 08, 2023 To prevent seizures: CONTINUE Oxcarbazepine (brand name Trileptal) 300 mg tablet 2 tablets twice daily Follow-up in 6 months, please continue to bring someone from your adventism who can assist with Anguillan translation lissette Not available 04/08/2023 18:55:27 10/14/2023 10/14/2023 IMPRESSION --generalized seizure witnessed by Thursday, February 04, 2021 after being off of his medication for reason of running out after evening , February 01, 2021. -- Previously seizure-free on oxcarbazepine 450 mg twice daily started in the context of a single event of abnormal movements out of sleep February 2015, witnessed by his , diagnosed as seizure at [facility], with nonspecific small foci of gadolinium uptake of uncertain significance found on brain MRI during that hospitalization, with changing foci on repeat brain MRI May 29, 2015. --Early 2019 onset of brief shocks going down the right arm. CURRENTLY October 14, 2023: He has not had any interval seizures on oxcarbazepine 600 mg's daily. We will continue it. I will also plan to check serum sodium/BMP. Neurologic examination is unchanged. 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 I offered physical therapy. He accepts. He prefers a physical therapist in [place] where he lives. We will plan 6-month follow-up for the seizures, sooner if no improvement in the right shock like shoulder pain with physical therapy PLAN Bipin Mcgrath April 08, 2023 To prevent seizures: CONTINUE Oxcarbazepine (brand name Trileptal) 300 mg tablet 2 tablets twice daily For your sodium level on oxcarbazepine and BMP: Go to a [facility] laboratory Your friend, Shady has said he can bring you today. There [place] [address] Office For the increasing episodes of shocklike pain in the right shoulder, now awakening you at night Start physical therapy [facility] [place] [address] [place] [address] Ph. , Follow-up in 6 months, please continue to bring someone from your adventism who can assist with Anguillan translation lissette Not available 10/14/2023 21:12:05 04/14/2024 04/14/2024 IMPRESSION seizure disorder -- oxcarbazepine 450 mg twice daily started in the context of a single event of abnormal movements out of sleep February 2015, witnessed by his , diagnosed as seizure at [facility], with nonspecific small foci of gadolinium uptake of uncertain significance found on brain MRI during that hospitalization, with changing foci on repeat brain MRI May 29, 2015. --generalized seizure witnessed by Friday, February 04, 2021 after being off of his medication for reason of running out after evening , February 01, 2021, with [facility] restarting oxcarbazepine at higher dose, 600 mg bid --April 14, 2024 oxcarbazepine 600 mg twice daily: No seizures or side effects; grinding teeth, biting lip, body or legs jumping. We will remember that oxcarbazepine 600 mg twice daily is not necessarily any better than 450 mg twice daily for this patient. Patient decided to stay on this higher dose when it was started after he ran out of oxcarbazepine 450 mg twice daily and he had a seizure. He never had a seizure on oxcarbazepine 450 mg twice a day. LABORATORIES October 14, 2023 BMP normal including sodium 137 >>>>>>>>>>>>Septe mber 2023 For seizure disorder, we will make no changes to oxcarbazepine. For the other issues, discussion is as given in the HPI. Sodium October 14, 2023 is normal? h e does not seem to have a tendency of hyponatremia with oxcarbazepine. None of his symptoms suggested. I will hold off on further testing and defer to primary care with their yearly yearly BMP that is standard for an individual of his age. >>>>>>>>>>>>October 14, 2023: He has not had any interval seizures on oxcarbazepine 600 mg's daily. We will continue it. I will also plan to check serum sodium/BMP. Neurologic examination is unchanged. 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 I offered physical therapy. He accepts. He prefers a physical therapist in [place] where he lives. PLAN Bipin Mcgrath April 14, 2024 To prevent seizures: CONTINUE Oxcarbazepine (brand name Trileptal) 300 mg tablet 2 tablets twice daily Follow-up in 11 months, please continue to bring someone from your adventism who can assist with Anguillan translation charlie Not available 04/14/2024 15:25:34 Plan of Treatment Reminders Order Date Submit Date Provider Last Modified By Organization Details Last Modified Time Details Appointments FOLLOW UP EXT 2024 02:00P Lexa Inman MD PhD Not available Not available Not available Lab BMP, serum or plasma - R94.4 2023 024 RL [facility] (Centralized Electronic Ordering - All Locations), Patient Can Go To The Location Of Their Choice, [id number] 10/15/2023 00:27:06 Referral physica l therapi st referra l - please eval and treat RUE radiati ng pain, worse at night and with activit y [address] [facility], [address], [place], [address], 12/18/2023 10:27:33 Procedures None recorde d. Surgeries None recorde d. Imaging MRI, brain, w/wo contras t - seizure protoco l, with history of seizure s, compare d to previou s studies includi ng er 2018 brain MRI where there was left medial tempora l lobe abnorma lity, with studies also showing small nonspec ific regions of gadolin ium uptake in differe nt places on differe nt studies [address] [facility] [address], [place], [address], 03/28/2022 10:52:16 Medication Orders oxcarba zepine 600 mg tablet 2023 024 [facility] #[id number], [address] [place], [address], 04/14/2024 15:15:38 oxcarba zepine 600 mg tablet 2023 024 mikel [facility]/Ph[facility]acy #[id number], [address] [place], [address], 10/15/2023 18:53:50 oxcarba zepine 600 mg tablet 2022 023 [facility] #[id number], [address] [place], [address], 04/08/2023 14:14:11 oxcarba zepine 600 mg tablet 2022 023 [facility]acy #[id number], [address] [place], [address], 10/03/2022 12:37:21 oxcarba zepine 600 mg tablet 2021 022 [facility]acy #[id number], [address] [place], [address], 01/10/2022 12:56:56 Patient TargetsNo targets recorded. Patient Instructions Encounter Date Encounter Id Patient Instructions Last Modified By Organization Details Last Modified Time 01/10/2022 [id number] PREVIOUS MEDICATION Keppra 500 mg twice a day discontinued for depression and tiredness, March 2016 with replacement by oxcarbazepine. Vimpat: Rash, first at 150 mg twice a day, then, after longer delay, at 100 mg twice a day. Discontinued December 2015 [email or web address] Not available 01/10/2022 12:37:24 10/03/2022 [id number] PREVIOUS MEDICATION Keppra 500 mg twice a day discontinued for depression and tiredness, March 2016 with replacement by oxcarbazepine. Vimpat: Rash, first at 150 mg twice a day, then, after longer delay, at 100 mg twice a day. Discontinued December 2015 BILLING: Discussion across issues of diagnoses and management and same day associated chart review and management greater than 50% greater than 60 minutes lissette Not available 10/10/2022 19:26:23 04/08/2023 [id number] PREVIOUS MEDICATION Keppra 500 mg twice a day discontinued for depression and tiredness, March 2016 with replacement by oxcarbazepine. Vimpat: Rash, first at 150 mg twice a day, then, after longer delay, at 100 mg twice a day. Discontinued December 2015 BILLING: Discussion across issues of diagnoses and management and same day associated chart review and management greater than 50% greater than 30 minutes lissette Not available 04/08/2023 18:55:44 10/14/2023 [id number] PREVIOUS MEDICATION Keppra 500 mg twice a day discontinued for depression and tiredness, March 2016 with replacement by oxcarbazepine. Vimpat: Rash, first at 150 mg twice a day, then, after longer delay, at 100 mg twice a day. Discontinued December 2015 PREVIOUS DISCUSSIONS: April 08, 2023: He has been stable on oxcarbazepine 600 mg twice daily without breakthrough seizure. We will continue it. He has not had changes in neurologic examination. He has not had new neurologic symptoms and his neurologic examination remains normal. He prefers to follow-up in 6 months (rather than annual/11-month follow-ups) for neurologic examinations to make sure that there has not been any change in the context of prior abnormal MRIs. REVIEW of October 03, 2022 with discussion regarding most recent brain MRI: He has not had any breakthrough seizures since he was last seen, last breakthrough January 2021 occurred off of medication. He presently remains on oxcarbazepine 600 mg twice daily. MRI of the brain has been repeated with and without gadolinium on April 06, 2022 which was compared to April 26, 2019. There is no new finding or abnormal enhancement. The previously noted T2 signal seen in the right middle frontal gyrus was not appreciated on the new study and the subtle hyperintense FLAIR signal along the left posterior parietal cortex has further decreased. Discussed the findings with Dr. Inman; etiology remains uncertain however it is assuring that there are no new lesions, no abnormal enhancement and prior chronic lesions resolved/resolving . No need for further surveillance MRIs barring any change in his examination. We will not make any changes. CONCERNING SEIZURE: April 08, 2023: Stable on oxcarbazepine 600 mg twice daily. October 03, 2022: Stable on oxcarbazepine 600 mg twice daily. I have reviewed archive and current EMR and have not found recent BMP. We will request it from his lab or PCP with any level dating back to his increase oxcarbazepine after January 2021 January 10, 2022: As his breakthrough seizure January 2021 occurred when he was off medication because he ran out of medication, there was no definitive indication to increase from 450 mg twice a day up to 600 mg twice a day. He decided he wanted to stay at the increased dose at February 2021 appointment and he continues with this decision as he has no side effects. I agree if this gives him more protection against seizures. There have been concerning abnormalities of two types on repeat brain MRIs, small foci of gadolinium uptake of uncertain significance that have been in different regions of the brain on different repeat brain MRIs; and a left medial temporal lobe fullness with increased T2/flair signal present all the way back to initial February 2015 MRI imaging but only detailed on most recent imaging April 26, 2019. I know of no imaging more recent than that and therefore I will get repeat imaging for monitoring. To review, workup of etiology of events surrounding seizure: the initial event of concern seems certain to have been a seizure, given his 's description Relationship of his single seizure To brain MRI abnormalities that have been observed is plausible but not definitive. CONCERNING BRAIN LESIONS THAT HAVE HAD CONTRAST ENHANCEMENT WHICH HAS RESOLVED: October 03, 2021: MRI of the brain has been repeated with and without gadolinium on April 06, 2022 which was compared to April 26, 2019. There is no new finding or abnormal enhancement. The previously noted T2 signal seen in the right middle frontal gyrus was not appreciated on the new study and the subtle hyperintense FLAIR signal along the left posterior parietal cortex has further decreased. Discussed this findings with Dr. Inman; etiology remains uncertain however it is assuring that there are no new lesions, no abnormal enhancement and prior chronic lesions resolved/resolving . No need for further surveillance MRIs barring any change in his examination. Review of January 10 2022 discussion: Etiology is uncertain of brain MRI findings of small (up to 6 mm) foci of enhancement, at least once shifting in region (February 25, 2015 2 May 29, 2015: 1 of 2 left parietal regions resolving, right frontal region emerging). Enhancement that was seen on 3 brain MRIs February 2015 through May 2016 is resolved on 2019 MRI. Lesions of unknown etiology that seemed to be acute across those studies now seems chronic. Neoplastic etiology has been made less likely with negative cytopathology results on CSF, and shifting MRI enhancing foci almost excludes neoplasm--although REHABILITATION ASSISTANT lymphoma can theoretically fluctuate. Autoimmune etiology is less likely with unrevealing results for NMDA-R and VGKC antibody assays, although more rare autoimmune etiology is not excluded; shifting foci is consistent with autoimmune etiology. As the patient has not been ill-appearing over the time span across MRI studies that have reflected these results, the situation is atypical for Septic emboli. I am not clear if there has been complete cardiac evaluation including heart monitoring. I would defer to primary care or cardiology for further investigation in this direction that might be indicated. CONCERNING SHOCKLIKE SYMPTOMS: His right upper extremity episodes of brief shocks reported April 2019 are of uncertain etiology. Exam continues unrevealing. These were not subject of his discussion today. No change in management is indicated. BILLING: Discussion across issues of diagnoses and management and same day associated chart review and management greater than 50% greater than 40 minutes mrossen Not available 10/15/2023 18:54:13 04/14/2024 [id number] PREVIOUS MEDICATION Keppra 500 mg twice a day discontinued for depression and tiredness, March 2016 with replacement by oxcarbazepine. Vimpat: Rash, first at 150 mg twice a day, then, after longer delay, at 100 mg twice a day. Discontinued December 2015 PREVIOUS DISCUSSIONS: April 08, 2023: He has been stable on oxcarbazepine 600 mg twice daily without breakthrough seizure. We will continue it. He has not had changes in neurologic examination. He has not had new neurologic symptoms and his neurologic examination remains normal. He prefers to follow-up in 6 months (rather than annual/11-month follow-ups) for neurologic examinations to make sure that there has not been any change in the context of prior abnormal MRIs. REVIEW of October 03, 2022 with discussion regarding most recent brain MRI: He has not had any breakthrough seizures since he was last seen, last breakthrough January 2021 occurred off of medication. He presently remains on oxcarbazepine 600 mg twice daily. MRI of the brain has been repeated with and without gadolinium on April 06, 2022 which was compared to April 26, 2019. There is no new finding or abnormal enhancement. The previously noted T2 signal seen in the right middle frontal gyrus was not appreciated on the new study and the subtle hyperintense FLAIR signal along the left posterior parietal cortex has further decreased. Discussed the findings with Dr. Inman; etiology remains uncertain however it is assuring that there are no new lesions, no abnormal enhancement and prior chronic lesions resolved/resolving . No need for further surveillance MRIs barring any change in his examination. We will not make any changes. CONCERNING SEIZURE: April 08, 2023: Stable on oxcarbazepine 600 mg twice daily. October 03, 2022: Stable on oxcarbazepine 600 mg twice daily. I have reviewed archive and current EMR and have not found recent BMP. We will request it from his lab or PCP with any level dating back to his increase oxcarbazepine after January 2021 January 10, 2022: As his breakthrough seizure January 2021 occurred when he was off medication because he ran out of medication, there was no definitive indication to increase from 450 mg twice a day up to 600 mg twice a day. He decided he wanted to stay at the increased dose at February 2021 appointment and he continues with this decision as he has no side effects. I agree if this gives him more protection against seizures. There have been concerning abnormalities of two types on repeat brain MRIs, small foci of gadolinium uptake of uncertain significance that have been in different regions of the brain on different repeat brain MRIs; and a left medial temporal lobe fullness with increased T2/flair signal present all the way back to initial February 2015 MRI imaging but only detailed on most recent imaging April 26, 2019. I know of no imaging more recent than that and therefore I will get repeat imaging for monitoring. To review, workup of etiology of events surrounding seizure: the initial event of concern seems certain to have been a seizure, given his 's description Relationship of his single seizure To brain MRI abnormalities that have been observed is plausible but not definitive. CONCERNING BRAIN LESIONS THAT HAVE HAD CONTRAST ENHANCEMENT WHICH HAS RESOLVED: October 03, 2021: MRI of the brain has been repeated with and without gadolinium on April 06, 2022 which was compared to April 26, 2019. There is no new finding or abnormal enhancement. The previously noted T2 signal seen in the right middle frontal gyrus was not appreciated on the new study and the subtle hyperintense FLAIR signal along the left posterior parietal cortex has further decreased. Discussed this findings with Dr. Inman; etiology remains uncertain however it is assuring that there are no new lesions, no abnormal enhancement and prior chronic lesions resolved/resolving . No need for further surveillance MRIs barring any change in his examination. Review of January 10 2022 discussion: Etiology is uncertain of brain MRI findings of small (up to 6 mm) foci of enhancement, at least once shifting in region (February 25, 2015 2 May 29, 2015: 1 of 2 left parietal regions resolving, right frontal region emerging). Enhancement that was seen on 3 brain MRIs February 2015 through May 2016 is resolved on 2019 MRI. Lesions of unknown etiology that seemed to be acute across those studies now seems chronic. Neoplastic etiology has been made less likely with negative cytopathology results on CSF, and shifting MRI enhancing foci almost excludes neoplasm--although REHABILITATION ASSISTANT lymphoma can theoretically fluctuate. Autoimmune etiology is less likely with unrevealing results for NMDA-R and VGKC antibody assays, although more rare autoimmune etiology is not excluded; shifting foci is consistent with autoimmune etiology. As the patient has not been ill-appearing over the time span across MRI studies that have reflected these results, the situation is atypical for Septic emboli. I am not clear if there has been complete cardiac evaluation including heart monitoring. I would defer to primary care or cardiology for further investigation in this direction that might be indicated. --Early 2018 onset of brief shocks going down the right arm. CONCERNING SHOCKLIKE SYMPTOMS: His right upper extremity episodes of brief shocks reported April 2019 are of uncertain etiology. Exam continues unrevealing. These were not subject of his discussion today. No change in management is indicated. BILLING: Discussion across issues of diagnoses and management and same day associated chart review and management greater than 50% greater than 40 minutes mrossen Not available 04/14/2024 15:15:19 Reason for Referral Physical Therapist Referral for Cervical nerve root compression please eval and treat RUE radiating pain, worse at night and with activity Referring Physician: Sarah Madrid, Neurology, Encounter Date: 10/14/2023 Results Created Date Observation Date Name Description Value Unit Range Abnormal Flag Note LastModifiedBy Organization Detail LastModifiedTime 10/14/1910/15/2023 BASIC METAB OLIC PANEL glucose 93 mg/dL (70-99 ) Not Available [facility] (Centralized Electronic Ordering - All Locations) Patient Can Go To The Location Of Their Choice, 10/15/2023 00:27:10/14/1910/15/2023 BASIC METAB OLIC PANEL BUN 11 mg/dL (8-23) Not Available [facility] (Centralized Electronic Ordering - All Locations) Patient Can Go To The Location Of Their Choice, 10/15/2023 00:27:10/14/1910/15/2023 BASIC METAB OLIC PANEL creatinine 1.0 mg/dL (0.7-1 .2) Not Available [facility] (Centralized Electronic Ordering - All Locations) Patient Can Go To The Location Of Their Choice, 10/15/2023 00:27:10/14/1910/15/2023 BASIC METAB OLIC PANEL sodium 137 mmol/ L (133-1 45) Not Available [facility] (Centralized Electronic Ordering - All Locations) Patient Can Go To The Location Of Their Choice, 10/15/2023 00:27:10/14/1910/15/2023 BASIC METAB OLIC PANEL potassium 4.0 mmol/ L (3.6-5 .2) Not Available [facility] (Centralized Electronic Ordering - All Locations) Patient Can Go To The Location Of Their Choice, 10/15/2023 00:27:10/14/1910/15/2023 BASIC METAB OLIC PANEL chloride 98 mmol/ L (98-10 7) Not Available [facility] (Centralized Electronic Ordering - All Locations) Patient Can Go To The Location Of Their Choice, 10/15/2023 00:27:10/14/1910/15/2023 BASIC METAB OLIC PANEL bicarbonate 25 mmol/ L (22-29 ) Not Available [facility] (Centralized Electronic Ordering - All Locations) Patient Can Go To The Location Of Their Choice, 10/15/2023 00:27:10/14/1910/15/2023 BASIC METAB OLIC PANEL anion gap 14 (4-17) Not Available [facility] (Centralized Electronic Ordering - All Locations) Patient Can Go To The Location Of Their Choice, 10/15/2023 00:27:10/14/1910/15/2023 BASIC METAB OLIC PANEL calcium 9.8 mg/dL (8.6-1 0.5) Not Available [facility] (Centralized Electronic Ordering - All Locations) Patient Can Go To The Location Of Their Choice, 10/15/2023 00:27:10/14/1910/15/2023 BASIC METAB OLIC PANEL estimated GFR creatinine 79 mL/mi n/1.7 3_M2 Creat inine based estim ated glome rular filtr ation (eGFR ) in adult s is calcu lated using the Natio nal Kidne y Found ation recom qiana d 2020 CKD-E PI equat ion. Estim ates GFR from serum creat inine , age and sex. Not Available [facility] (Centralized Electronic Ordering - All Locations) Patient Can Go To The Location Of Their Choice, 10/15/2023 00:27:06 04/09/2004/06/2022 MRI, brain + brain stem, w/wo contr ast [facility] Access ion Number : [id number] Charla lima Name: Mcgrath , Valent in Medica l Record Number : [id number] Date of : 1950 Date of Exam: 2021 Referr ing Physic lety: Lalitha Inman MD [facility] [place] [address] [place] [address] Exam: MR Brain (C-/C+ ) CPT 67084 Room Descri ption: [facility] 3.0T MRI of the brain withou t contra st. HISTOR Y: Seizur es. Extrem ity weakne ss. Headac hes. COMPAR GEORGES: 019. FINDIN GS: There is furthe r decrea se of the subtle hyperi ntense FLAIR signal s along the left police surgeon ior pariet al cortex which is barely visibl e. No enhanc ement. The subtle hyperi ntense T2 signal in the right middle fronta l gyrus is no longer seen. The ventri cles, cister ns and sulci are normal . No hydroc ephalu s is seen. No congen ital malfor mation is noted. There is no acute intrac ranial hemorr luis, tumor or infarc t. A few puncta te areas of hyperi ntense T2/FLA IR signal s are seen in the white matter s bilate rally, mostly in the fronta l white matter s, on change s since prior study. No enhanc ement is noted. Bilate ral medial tempor al lobes are normal in volume and signal intens ities. No eviden ce of mesial tempor al sclero sis is seen. There are normal flow-v oids within major intrac ranial vessel s. There is mild mucosa l thicke lina within bilate ral ethmoi d sinuse s. A subcen timete r mucus retent ion cyst is seen in the right maxill silvia sinus IMPRES MARY: No acute pathol ogy or abnorm al enhanc ement is noted. Minima l fronta l white matter diseas e is stable . Subtle hyperi ntense FLAIR signal in the left police surgeon ior pariet al cortex seen on prior study is barely visibl e on the curren t study. Please correl ate clinic ally. Electr onical ly Signed By: Glenn Damon MD [email or web address] [facility] ([facility]) [address], [place], [address], 04/11/2022 15:11:54 Result Notes None recorded. Procedures Surgical History Date Name Laterality Status Provider Name and Address Organization Details Recorded Time 04/14/2024 DATA REVIEW completed Brandon Inman MD [address] [place] [address], [place], [phone], [facility] [place] 04/14/2024 14:54:48 10/14/2023 DATA REVIEW completed SARAH MADRID PA-C [address] [place] [address], [place], [phone], [facility] [place] 10/14/2023 11:35:41 04/08/2023 DATA REVIEW completed SARAH MADRID PA-C [address] [place] [address], [place], [phone], [facility] 04/08/2023 14:04:02 10/03/2022 DATA REVIEW completed SARAH MADRID PA-C [address] [place] [address], [place], [phone], [facility] 10/03/2022 13:57:10 01/10/2022 DATA REVIEW completed Brandon Inman MD [address] [place] [address], [place], [phone], [facility] 01/10/2022 12:37:24 02/08/2021 DATA REVIEW completed Brandon Inman MD [address] [place] [address] [place], [phone], [facility] 02/08/2021 12:41:08 Imaging Results Imaging Date Name Status LastModified by Organiz ation Details LastModified Time 04/06/2022 MRI, brain + brain stem, w/wo contrast completed [email or web address] [facility] ([facility]) [address] [place], [address], 04/11/2022 15:11:54 Procedure Notes None recorded. Medical Equipment None Reported. Medications Name Sig Start Date Stop Date Status Note LastModified by Organization Details LastModified Time amoxicillin 500 mg capsule TOME HALIE C PSULA CADA OCHO HORAS HASTA QUE SE TERMINE active Not Available Not Available N ot Available atorvastatin 40 mg tablet TOME HALIE TABLETA TODOS LOS D active Not Available Not Available No t Available doxycycline hyclate 100 mg capsule TOME HALIE C PSULA DOS VECES AL D A active Not Available Not Available No t Available azithromycin 250 mg tablet TOME 2 TABLETAS POR V A ORAL HOY, LUEGO TOME 1 TABLETA POR D A DIDIER 4 D active Not Available Not Available No t Available ibuprofen 800 mg tablet TAKE 1 TABLET BY MOUTH EVERY 8 HOURS NEEDED FOR PAIN active Not Available Not Available No t Available cyanocobalam in (vit B-12) 1,000 mcg tablet TOME 1 TABLETA POR V A ORAL TODOS LOS D active Not Available Not Available No t Available oxcarbazepin e 300 mg tablet TOME DOS TABLETAS POR V A ORAL DOS VECES AL D A active Not Available Not Available No t Available acetaminophe n 500 mg tablet TOME HALIE TABLETA CADA SEIS HORAS CUANDO SEA NECESARIO PARA EL DOLOR active Not Available Not Available No t Available prednisolone acetate 1 % eye drops,suspen mary INSTILL 1 DROP INTO LASERED EYE SYED VECES AL D A FOR 5 DAYS FOLLOWING LASER active Not Available Not Available No t Available tamsulosin 0.4 mg capsule TAKE 2 CAPSULES (0.8 MG) BY MOUTH AT BEDTIME. active Not Available Not Available No t Available carboxymethy lcellulose sodium 0.5 % eye drops PONGA HALIE GOTA EN LOS DOS OJOS DOS VECES AL D A active Not Available Not Available No t Available meclizine 25 mg tablet TOME HALIE TABLETA SYED VECES AL D A CUANDO SEA NECESARIO POR 10 D active Not Available Not Available Not Available amlodipine 10 mg tablet TOME 1 TABLETA POR V A ORAL TODOS LOS D EN LA MA CHELSEA active Not Available Not Available No t Available doxycycline monohydrate 100 mg capsule TAKE 2 ( TWO) AT ONCE FIRST DAY THEN ON 1 CAPSULE DAILY UNTIL GONE active Not Available Not Available No t Available cephalexin 500 mg capsule active Not Available Not Available Not Available omeprazole 20 mg capsule,lorenza yed release TAKE 1 CAPSULE BY MOUTH 30 MINUTES TO 1 HOUR BEFORE A MEAL active Not Available Not Available No t Available oxcarbazepin e 600 mg tablet Take 1 tablet twice a day by oral route for 90 days. active Not Available Not Available No t Available ibuprofen 600 mg tablet PLEASE SEE ATTACHED FOR DETAILED DIRECTIONS active Not Available Not Available N ot Available fluticasone propionate 50 mcg/actuatio n nasal spray,suspen mary SPRAY 1 SPRAY INTO EACH NOSTRIL TODOS LOS MCGUIRE active Not Available Not Available No t Available clotrimazole 1 % topical cream PLEASE SEE ATTACHED FOR DETAILED DIRECTIONS active Not Available Not Available N ot Available finasteride 5 mg tablet TOME 1 TABLETA POR V A ORAL TODOS LOS D active Not Available Not Available No t Available Mapap Arthritis Pain 650 mg tablet,exten ded release PLEASE SEE ATTACHED FOR DETAILED DIRECTIONS active Not Available Not Available N ot Available Senna Plus 8.6 mg-50 mg tablet TOME DOS TABLETAS POR V A ORAL AL ACOSTARSE CUANDO SEA NECESARIO FOR CONSTIPATIO N FOR 10 DAYS active Not Available Not Available No t Available hydrochlorot hiazide 12.5 mg tablet TOME 1 TABLETA POR V A ORAL TODOS LOS D active Not Available Not Available No t Available diclofenac 1 % topical gel USE ONCE A DAY ON THE AFFECTED HAND active Not Available Not Available No t Available Ilevro 0.3 % eye drops,suspen mary active Not Available Not Available Not Available Vitals None Recorded Social History None recorded. Functional Status None recorded. Mental Status None recorded. Family History Nothing Reported. Medical History No medical history recorded. 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 [id number] Brandon Inman MD [facility] [address] [place] [address] [place] [id number] 01/10/2022 12:12:01 01/10/2022 18:02:53 Generalized convulsive epilepsy 33864832 G40.309 [id number] SARAH MADRID PA-C [facility] [address] [place] [address] [place] [phone] 10/03/2022 11:13:08 10/17/2022 14:56:10 Generalized convulsive epilepsy 65648181 G40.309 [id number] Brandon Inman MD [facility] [address] [place] [address] [place] [id number] 04/08/2023 13:39:30 04/10/2023 16:18:36 Generalized convulsive epilepsy 75223152 G40.309 [id number] Brandon Inman MD [facility] [address] [place] [address] [place] [id number] 10/14/2023 11:23:34 10/16/2023 08:31:12 Generalized convulsive epilepsy 20434108 G40.309 Blood chem istry outside reference range 585198272 R79.9 Cervical n erve root compression 62413264 M50.13 [id number] Brandon Inman MD [facility] [address] [place] [address] [place] [id number] 04/14/2024 14:05:34 04/14/2024 16:53:41 Generalized convulsive epilepsy 48329158 G40.309 Health Concerns Section Related Observation LastModified by Organization Detai ls LastModified Time None Recorded Concern Status LastModified by Organization Details LastModified Time None Recorded Advance Directives Directive None Recorded Payers Encounter Date Sequence Insurance Name Policy Number Policy Mullins Covered Member ID Mullins Member ID Guarantor Name 01/10/2022 1 [facility] [employer] - DOS PRIOR TO 2022 - DUAL ELIGIBLE (MEDICARE REPLACEMENT/ADV ANTAGE - HMO) Bipin Mcgrath [id number] Bipin Mcgrath 10/03/2022 1 [facility] DOS PRIOR TO 2022 - DUAL ELIGIBLE (MEDICARE REPLACEMENT/ADV ANTAGE - HMO) Bipin Mcgrath [id number] Bipin Mcgrath 04/08/2023 1 [facility] [facility] - DOS ON OR AFTER 2022 - [place]/ADV ANTAGE - PPO) Bipin Mcgrath [id number] Bipin Mcgrath 10/14/2023 1 [facility] - DOS ON OR AFTER 2022 - [place]/ADV ANTAGE - PPO) Bipin Mcgrath [id number] Bipin Mcgrath 04/14/2024 1 [facility] - DOS ON OR AFTER 2022 - [place]/ADV ANTAGE - PPO) Bipin Mcgrath [id number] Bipin Mcgrath Notes Date Note Type Note Provider Name and Address Organization Details Recorded Time 01/10/2022 text/html Follow up of generalized seizure witnessed by Thursday, February 04, 2021 after being off of his medication for reason of running out after evening , February 01, 2021. Previously seizure-free on oxcarbazepine 450 mg twice daily started in the context of a single event of abnormal movements out of sleep February 2015, witnessed by his , diagnosed as seizure at [facility], with nonspecific small foci of gadolinium uptake of uncertain significance found on brain MRI during that hospitalization. He is accompanied by his good friend, Demond, from the [employer] where the patient is a [employer]. 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 Since February 08, 2021 neurology follow-up, 11 months ago, he has had no further seizure, the last being February 04, 2021. He has remained on oxcarbazepine 600 mg twice daily that I prescribed, and increase from his previous 450 mg twice a day before the seizure. (He had also been out of medication completely for several days before that seizure.) The increase was started by [facility] emergency room right after the seizure and I changed his outpatient prescription to reflect this increase dosage. He has not had any side effects on this increased dosage of oxcarbazepine and has thus not contacted me to go back down to the previous dose. He has had no new or changing medical issues. No one else has changed any other medications.. Presenting symptomatology from the perspective of the patient's was reviewed from June 28, 2015, when she was present at office visit: She relates her memory of the February 2015 event. He was well when he went they went to bed together. She was woken by hearing a grinding grumbling sound from her . She turned and saw that his teeth were tightly clenched and he was making this strange sound. His body was stiff and shaking and his left arm was extended upward. This lasted about 20-30 min. Afterwards, his eyes were open but he looked around without recognizing or responding to voice. This lasted maybe an hour. Since that time, he has a headache and this has been slowly worsening. In addition, since May, his memory has been bad. He has forgotten where he was going and he has forgotten tasks. His gait is unchanged. He thinks his mood is good. She thinks he sometimes gets agitated. He tried to Topamax that I added to his Keppra--because of her depression and tiredness since starting Keppra. Topamax caused his mood to change in a bad way. He stopped Topamax. He remains on Keppra--generic levetiracetam--500 mg every 12 hours. Presenting symptomatology was reviewed from my initial office neurology consultation May 18, 2015 (I was not part of the neurology team that attended to him during his [facility] hospitalization): In mid February 2015, he was sleeping when his noticed that he was moving abnormally. He recalls from his 's description later that his arms were tilted out of the normal formation. His head was also tilted and stiff. He does not think that there was shaking. He thinks his eyes were closed. He cannot say how long this went on. He was awake afterwards but confused, he was told. He was taken to [facility]. After diagnostic investigations, levetiracetam was started and he was discharged. He has not had any recurrent episodes that he or his has noticed that are concerning for seizure. However, since this course of events, his previously mild and only occasional headaches have worsened--they are frequent and often severe. His mood has worsened--he often feels depressed. He is tired and has less energy. 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 He reports that his mother never said he had anything other than a normal and delivery, with learning to walk and talk at the normal times. He went through normal schooling through high school. He has no history of brain infection. Among his close family members, his daughter has had seizures. Brandon Inman MD [address] [place] [address] [place], [phone], [facility] Neurology [facility] 01/10/2022 13:08:26 10/03/2022 text/html Follow up of generalized seizure witnessed by Friday, February 04, 2021 after being off of his medication for reason of running out after evening , February 01, 2021. Previously seizure-free on oxcarbazepine 450 mg twice daily started in the context of a single event of abnormal movements out of sleep February 2015, witnessed by his , diagnosed as seizure at [facility], with nonspecific small foci of gadolinium uptake of uncertain significance found on brain MRI during that hospitalization. He is accompanied by Edison from the [employer] ([employer]) where the patient is a [employer]. 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 Since January 10 2022 neurology follow-up with Dr. Inman, he has been doing well. He has not had any breakthrough seizures. His most recent breakthrough seizure was in February 2021, he thinks (we confirm the date from the record, February 04, 2021 in the context of running out of medications 3 days prior). He continues Trileptal/oxcarbazep ine 600 mg twice daily. He is taking the single 600 mg tab not the 2 to 300 mg tablets twice daily. He went for repeat MRI of the brain on April 06, 2022 which was compared to April 26, 2019 study. It showed further decrease of the subtle hyperintense FLAIR signal along the left posterior parietal cortex and the subtle T2 signal seen in the right middle frontal gyrus was no longer seen. There was no abnormal enhancement.The only medical change she had was surgery for cataracts on both sides. He is now reading well although occasionally this is blurry and has some left eye tearing. He is not on any new medications. January 14 2022 neurology follow up reviewedSince February 08, 2021 neurology follow-up, 11 months ago, he has had no further seizure, the last being February 04, 2021. He has remained on oxcarbazepine 600 mg twice daily that I prescribed, and increase from his previous 450 mg twice a day before the seizure. (He had also been out of medication completely for several days before that seizure.) The increase was started by [facility] emergency room right after the seizure and I changed his outpatient prescription to reflect this increase dosage. He has not had any side effects on this increased dosage of oxcarbazepine and has thus not contacted me to go back down to the previous dose. He has had no new or changing medical issues. No one else has changed any other medications.. Presenting symptomatology from the perspective of the patient's was reviewed from June 28, 2015, when she was present at office visit: She relates her memory of the February 2015 event. He was well when he went they went to bed together. She was woken by hearing a grinding grumbling sound from her . She turned and saw that his teeth were tightly clenched and he was making this strange sound. His body was stiff and shaking and his left arm was extended upward. This lasted about 20-30 min. Afterwards, his eyes were open but he looked around without recognizing or responding to voice. This lasted maybe an hour. Since that time, he has a headache and this has been slowly worsening. In addition, since May, his memory has been bad. He has forgotten where he was going and he has forgotten tasks. His gait is unchanged. He thinks his mood is good. She thinks he sometimes gets agitated. He tried to Topamax that I added to his Keppra--because of her depression and tiredness since starting Keppra. Topamax caused his mood to change in a bad way. He stopped Topamax. He remains on Keppra--generic levetiracetam--500 mg every 12 hours. Presenting symptomatology was reviewed from my initial office neurology consultation May 18, 2015 (I was not part of the neurology team that attended to him during his [facility] hospitalization): In mid February 2015, he was sleeping when his noticed that he was moving abnormally. He recalls from his 's description later that his arms were tilted out of the normal formation. His head was also tilted and stiff. He does not think that there was shaking. He thinks his eyes were closed. He cannot say how long this went on. He was awake afterwards but confused, he was told. He was taken to [facility]. After diagnostic investigations, levetiracetam was started and he was discharged. He has not had any recurrent episodes that he or his has noticed that are concerning for seizure. However, since this course of events, his previously mild and only occasional headaches have worsened--they are frequent and often severe. His mood has worsened--he often feels depressed. He is tired and has less energy. 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 He reports that his mother never said he had anything other than a normal and delivery, with learning to walk and talk at the normal times. He went through normal schooling through high school. He has no history of brain infection. Among his close family members, his daughter has had seizures. SARAH MADRID PA-C [address] [place] [address] [place], [phone], [facility] Neurology [facility] 04/08/2023 19:02:19 04/08/2023 text/html Follow up of generalized seizure witnessed by Thursday, February 04, 2021 after being off of his medication for reason of running out after evening , February 01, 2021. Previously seizure-free on oxcarbazepine 450 mg twice daily started in the context of a single event of abnormal movements out of sleep February 2015, witnessed by his , diagnosed as seizure at [facility], with nonspecific small foci of gadolinium uptake of uncertain significance found on brain MRI during that hospitalization. He is accompanied by Edison from the [employer] ([employer]) where the patient is a [employer]ant [employer]. 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 Since October 03, 2022 neurology follow-up, he has been doing well, he reports no changes in his health, he has not had any medication changes. 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 He is tolerating his seizure medications without difficulty and has not had any seizures. He confirms that he has significant night sweats which she reported on updated intake review of systems in September but does not have hallucinations and reports he has not had hallucinations in the past. He will be seeing his PCP soon and has an appointment scheduled. He does have some visual changes and will be seeing his professional programmer analyst. >>>>>>>>>>>>October 03, 2022Since January 10 2022 neurology follow-up with Dr. Rossen, he has been doing well. He has not had any breakthrough seizures. His most recent breakthrough seizure was in February 2021, he thinks (we confirm the date from the record, February 04, 2021 in the context of running out of medications 3 days prior). He continues Trileptal/oxcarbazep ine 600 mg twice daily. He is taking the single 600 mg tab not the 2 to 300 mg tablets twice daily. He went for repeat MRI of the brain on April 06, 2022 which was compared to April 26, 2019 study. It showed further decrease of the subtle hyperintense FLAIR signal along the left posterior parietal cortex and the subtle T2 signal seen in the right middle frontal gyrus was no longer seen. There was no abnormal enhancement.The only medical change she had was surgery for cataracts on both sides. He is now reading well although occasionally this is blurry and has some left eye tearing. He is not on any new medications. >>>>>>>>>>>>January 14 2022 neurology follow up reviewedSince February 08, 2021 neurology follow-up, 11 months ago, he has had no further seizure, the last being February 04, 2021. He has remained on oxcarbazepine 600 mg twice daily that I prescribed, and increase from his previous 450 mg twice a day before the seizure. (He had also been out of medication completely for several days before that seizure.) The increase was started by [facility] emergency room right after the seizure and I changed his outpatient prescription to reflect this increase dosage. He has not had any side effects on this increased dosage of oxcarbazepine and has thus not contacted me to go back down to the previous dose. He has had no new or changing medical issues. No one else has changed any other medications.. Presenting symptomatology from the perspective of the patient's was reviewed from June 28, 2015, when she was present at office visit: She relates her memory of the February 2015 event. He was well when he went they went to bed together. She was woken by hearing a grinding grumbling sound from her . She turned and saw that his teeth were tightly clenched and he was making this strange sound. His body was stiff and shaking and his left arm was extended upward. This lasted about 20-30 min. Afterwards, his eyes were open but he looked around without recognizing or responding to voice. This lasted maybe an hour. Since that time, he has a headache and this has been slowly worsening. In addition, since May, his memory has been bad. He has forgotten where he was going and he has forgotten tasks. His gait is unchanged. He thinks his mood is good. She thinks he sometimes gets agitated. He tried to Topamax that I added to his Keppra--because of her depression and tiredness since starting Keppra. Topamax caused his mood to change in a bad way. He stopped Topamax. He remains on Keppra--generic levetiracetam--500 mg every 12 hours. Presenting symptomatology was reviewed from my initial office neurology consultation May 18, 2015 (I was not part of the neurology team that attended to him during his [facility] hospitalization): In mid February 2015, he was sleeping when his noticed that he was moving abnormally. He recalls from his 's description later that his arms were tilted out of the normal formation. His head was also tilted and stiff. He does not think that there was shaking. He thinks his eyes were closed. He cannot say how long this went on. He was awake afterwards but confused, he was told. He was taken to [facility]. After diagnostic investigations, levetiracetam was started and he was discharged. He has not had any recurrent episodes that he or his has noticed that are concerning for seizure. However, since this course of events, his previously mild and only occasional headaches have worsened--they are frequent and often severe. His mood has worsened--he often feels depressed. He is tired and has less energy. 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 He reports that his mother never said he had anything other than a normal and delivery, with learning to walk and talk at the normal times. He went through normal schooling through high school. He has no history of brain infection. Among his close family members, his daughter has had seizures. Brandon Inman MD [address] [place], [place] [address], [phone], [facility] Neurology [facility] 04/10/2023 10:29:31 10/14/2023 text/html Follow up of generalized seizure witnessed by Thursday, February 04, 2021 after being off of his medication for reason of running out after evening , February 01, 2021. Previously seizure-free on oxcarbazepine 450 mg twice daily started in the context of a single event of abnormal movements out of sleep February 2015, witnessed by his , diagnosed as seizure at [facility], with nonspecific small foci of gadolinium uptake of uncertain significance found on brain MRI during that hospitalization. He is accompanied by Edison from the [employer] ([employer]) where the patient is a [employer]ant [employer]. 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 >>>>>>>>>>>>October 14, 2023Since April 08, 2023 neurology follow-up, reports that he has been doing well. He has not had any seizures. He continues on oxcarbazepine 600 mg tablet twice daily without side effect.The April 2019 brief shock-like episodes in the right shoulder are getting worse. It has been waking him up at night and may be a bit worse if he is laying on his right side. He points to his deltoid region with some radiation laterally. 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 He continues to wish for regular neurologic examinations to ensure that there is no neurologic deficits suggesting he might need repeat brain MRI. >>>>>>>>>>>>April 08, 2023Since October 03, 2022 neurology follow-up, he has been doing well, he reports no changes in his health, he has not had any medication changes. 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 He is tolerating his seizure medications without difficulty and has not had any seizures. He confirms that he has significant night sweats which she reported on updated intake review of systems in September but does not have hallucinations and reports he has not had hallucinations in the past. He will be seeing his PCP soon and has an appointment scheduled. He does have some visual changes and will be seeing his professional programmer analyst. >>>>>>>>>>>>October 03, 2022Since January 10 2022 neurology follow-up with Dr. Inman, he has been doing well. He has not had any breakthrough seizures. His most recent breakthrough seizure was in February 2021, he thinks (we confirm the date from the record, February 04, 2021 in the context of running out of medications 3 days prior). He continues Trileptal/oxcarbazep ine 600 mg twice daily. He is taking the single 600 mg tab not the 2 to 300 mg tablets twice daily. He went for repeat MRI of the brain on April 06, 2022 which was compared to April 26, 2019 study. It showed further decrease of the subtle hyperintense FLAIR signal along the left posterior parietal cortex and the subtle T2 signal seen in the right middle frontal gyrus was no longer seen. There was no abnormal enhancement.The only medical change she had was surgery for cataracts on both sides. He is now reading well although occasionally this is blurry and has some left eye tearing. He is not on any new medications. >>>>>>>>>>>>January 14 2022 neurology follow up reviewedSince February 08, 2021 neurology follow-up, 11 months ago, he has had no further seizure, the last being February 04, 2021. He has remained on oxcarbazepine 600 mg twice daily that I prescribed, and increase from his previous 450 mg twice a day before the seizure. (He had also been out of medication completely for several days before that seizure.) The increase was started by [facility] emergency room right after the seizure and I changed his outpatient prescription to reflect this increase dosage. He has not had any side effects on this increased dosage of oxcarbazepine and has thus not contacted me to go back down to the previous dose. He has had no new or changing medical issues. No one else has changed any other medications.. Presenting symptomatology from the perspective of the patient's was reviewed from June 28, 2015, when she was present at office visit: She relates her memory of the February 2015 event. He was well when he went they went to bed together. She was woken by hearing a grinding grumbling sound from her . She turned and saw that his teeth were tightly clenched and he was making this strange sound. His body was stiff and shaking and his left arm was extended upward. This lasted about 20-30 min. Afterwards, his eyes were open but he looked around without recognizing or responding to voice. This lasted maybe an hour. Since that time, he has a headache and this has been slowly worsening. In addition, since October, his memory has been bad. He has forgotten where he was going and he has forgotten tasks. His gait is unchanged. He thinks his mood is good. She thinks he sometimes gets agitated. He tried to Topamax that I added to his Keppra--because of her depression and tiredness since starting Keppra. Topamax caused his mood to change in a bad way. He stopped Topamax. He remains on Keppra--generic levetiracetam--500 mg every 12 hours. Presenting symptomatology was reviewed from my initial office neurology consultation May 18, 2015 (I was not part of the neurology team that attended to him during his [facility] hospitalization): In mid February 2015, he was sleeping when his noticed that he was moving abnormally. He recalls from his 's description later that his arms were tilted out of the normal formation. His head was also tilted and stiff. He does not think that there was shaking. He thinks his eyes were closed. He cannot say how long this went on. He was awake afterwards but confused, he was told. He was taken to [facility]. After diagnostic investigations, levetiracetam was started and he was discharged. He has not had any recurrent episodes that he or his has noticed that are concerning for seizure. However, since this course of events, his previously mild and only occasional headaches have worsened--they are frequent and often severe. His mood has worsened--he often feels depressed. He is tired and has less energy. 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 He reports that his mother never said he had anything other than a normal and delivery, with learning to walk and talk at the normal times. He went through normal schooling through high school. He has no history of brain infection. Among his close family members, his daughter has had seizures. Brandon Inman MD [address] [place] [address] [place], [phone], [facility] Neurology [facility] 10/15/2023 18:54:20 04/14/2024 text/html Follow up of generalized seizure witnessed by Thursday, February 04, 2021 after being off of his medication for reason of running out after evening January. Previously seizure-free on oxcarbazepine 450 mg twice daily started in the context of a single event of abnormal movements out of sleep February 2015, witnessed by his , diagnosed as seizure at [facility], with nonspecific small foci of gadolinium uptake of uncertain significance found on brain MRI during that hospitalization. He is accompanied by Edison from the [employer] ([employer] where the patient is a [employer]ant [employer]. 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 >>>>>>>>>>>>Garett r 2023Since October 14, 2023 Neurology follow-up encounter, he has had no seizures. He continues on oxcarbazepine 450 mg twice a day without side effects. His mood is good. He has not had any new or changing medications with other healthcare providers.His notes that he sometimes jumps in his sleep. 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 I cannot tell whether it is periodic leg movements of sleep which could be treated by gabapentin or a dopamine agonist. I would refer to sleep medicine for diagnosis and suggest they ask primary care for referral.He grinds his teeth during sleep, according to his at sometimes he bites his lip? h e finds out when he wakes up. He does not have any extended movements thrashing movements or stiffening that his notices to suggest seizure during sleep. He occasionally wakes tired or with a headache but not frequently.We discussed that the grinding and occasionally bitten the lip might be just benign spasm or clenching of his jaw muscles. I suggest mouthguard. This can be supplied by a dentist and he could consider following up with a dentist. Alternatively, some people are helped by a simple mouthguard that one can purchase at the pharmacy, typically used by athletes. The pharmacist can help guide him towards the proper size. His friend with him today can help him work through the instructions to boil the mouthpiece and make sure it fits and wear it before sleep for a while until he is comfortable and sleep with it. They understand. >>>>>>>>>>>>October 14, 2023Since April 08, 2023 neurology follow-up, reports that he has been doing well. He has not had any seizures. He continues on oxcarbazepine 600 mg tablet twice daily without side effect.The April 2019 brief shock-like episodes in the right shoulder are getting worse. It has been waking him up at night and may be a bit worse if he is laying on his right side. He points to his deltoid region with some radiation laterally. 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 He continues to wish for regular neurologic examinations to ensure that there is no neurologic deficits suggesting he might need repeat brain MRI. >>>>>>>>>>>>April 08, 2023Since October 03, 2022 neurology follow-up, he has been doing well, he reports no changes in his health, he has not had any medication changes. 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 He is tolerating his seizure medications without difficulty and has not had any seizures. He confirms that he has significant night sweats which she reported on updated intake review of systems in September but does not have hallucinations and reports he has not had hallucinations in the past. He will be seeing his PCP soon and has an appointment scheduled. He does have some visual changes and will be seeing his professional programmer analyst. >>>>>>>>>>>>October 03, 2022Since January 10 2022 neurology follow-up with Dr. Inman, he has been doing well. He has not had any breakthrough seizures. His most recent breakthrough seizure was in February 2021, he thinks (we confirm the date from the record, February 04, 2021 in the context of running out of medications 3 days prior). He continues Trileptal/oxcarbazep ine 600 mg twice daily. He is taking the single 600 mg tab not the 2 to 300 mg tablets twice daily. He went for repeat MRI of the brain on April 06, 2022 which was compared to April 26, 2019 study. It showed further decrease of the subtle hyperintense FLAIR signal along the left posterior parietal cortex and the subtle T2 signal seen in the right middle frontal gyrus was no longer seen. There was no abnormal enhancement.The only medical change she had was surgery for cataracts on both sides. He is now reading well although occasionally this is blurry and has some left eye tearing. He is not on any new medications. >>>>>>>>>>>>January 14 2022 neurology follow up reviewedSince February 08, 2021 neurology follow-up, 11 months ago, he has had no further seizure, the last being February 04, 2021. He has remained on oxcarbazepine 600 mg twice daily that I prescribed, and increase from his previous 450 mg twice a day before the seizure. (He had also been out of medication completely for several days before that seizure.) The increase was started by [facility] emergency room right after the seizure and I changed his outpatient prescription to reflect this increase dosage. He has not had any side effects on this increased dosage of oxcarbazepine and has thus not contacted me to go back down to the previous dose. He has had no new or changing medical issues. No one else has changed any other medications.. Presenting symptomatology from the perspective of the patient's was reviewed from June 28, 2015, when she was present at office visit: She relates her memory of the February 2015 event. He was well when he went they went to bed together. She was woken by hearing a grinding grumbling sound from her . She turned and saw that his teeth were tightly clenched and he was making this strange sound. His body was stiff and shaking and his left arm was extended upward. This lasted about 20-30 min. Afterwards, his eyes were open but he looked around without recognizing or responding to voice. This lasted maybe an hour. Since that time, he has a headache and this has been slowly worsening. In addition, since May, his memory has been bad. He has forgotten where he was going and he has forgotten tasks. His gait is unchanged. He thinks his mood is good. She thinks he sometimes gets agitated. He tried to Topamax that I added to his Keppra--because of her depression and tiredness since starting Keppra. Topamax caused his mood to change in a bad way. He stopped Topamax. He remains on Keppra--generic levetiracetam--500 mg every 12 hours. Presenting symptomatology was reviewed from my initial office neurology consultation May 18, 2015 (I was not part of the neurology team that attended to him during his [facility] hospitalization): In mid February 2015, he was sleeping when his noticed that he was moving abnormally. He recalls from his 's description later that his arms were tilted out of the normal formation. His head was also tilted and stiff. He does not think that there was shaking. He thinks his eyes were closed. He cannot say how long this went on. He was awake afterwards but confused, he was told. He was taken to [facility]. After diagnostic investigations, levetiracetam was started and he was discharged. He has not had any recurrent episodes that he or his has noticed that are concerning for seizure. However, since this course of events, his previously mild and only occasional headaches have worsened--they are frequent and often severe. His mood has worsened--he often feels depressed. He is tired and has less energy. 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 He reports that his mother never said he had anything other than a normal and delivery, with learning to walk and talk at the normal times. He went through normal schooling through high school. He has no history of brain infection. Among his close family members, his daughter has had seizures. Brandon Inman MD [address] [place] [address] [place], [id number], [facility] Neurology [facility] 04/14/2024 15:25:55
--- OUTSIDE RECORDS SUMMARY | 2024-11-15 10:18 | XMS_ITS | Encounter Summary ---
Author Organization [employer] [facility] Address [address] [facility] 7[address] [place] [address] Care Team Providers Care Green Hide Inspector Name Role Phone Name, Braydon COLE Primary Care Provider [phone] Encounter Details Date Type Department Care Team (Late st Contact Info) Description 09/04/2022 Orders Only [facility] MEDICINE [address] [place], [place] [phone] Xiomara Young LPN Social History Tobacco Use [...] on filedocumented in this encounter Care Teams Green Hide Inspector Relationship Specialty Start Date End Date Name, MD Braydon [address] [place] [address] PCP - General Family Medicine 08/11/18 documented as of this encounter
--- OUTSIDE RECORDS SUMMARY | 2024-11-15 10:18 | XMS_ITS | Encounter Summary ---
Author Organization [employer] Address [address] [facility] [address] [place] [address] Care Team Providers Care Banana Carrier Name Role Phone Name, Braydon COLE Primary Care Provider [phone] Encounter Details Date Type Department Care Team ([facility] st Contact Info) Description 09/09/2022 Orders Only [facility] P[facility] [address] [place] [address] Lily Barber LPN Social History Tobacco Use Types Packs/Day [...] on filedocumented in this encounter Care Teams Banana Carrier Relationship Specialty Start Date End Date Name, MD Braydon [address] [place] [id number] PCP - General Family Medicine 08/11/18 documented as of this encounter
--- OUTSIDE RECORDS SUMMARY | 2024-11-15 10:18 | XMS_ITS | Encounter Summary ---
Author Organization [employer] Address [address] [facility] [address]t [place] [address] Care Team Providers Care Bag Repairer Name Role Phone Name, Braydon COLE Primary Care Provider [phone] Encounter Details Date Type Department Care Team ([facility] st Contact Info) Description 10/14/2022 Orders Only [facility] MED & PEDS [address] [place] [address] Lily Barber LPN Social History Tobacco Use [...] on filedocumented in this encounter Care Teams Bag Repairer Relationship Specialty Start Date End Date Name, MD Braydon [address] [place] [id number] PCP - General Family Medicine 08/11/18 documented as of this encounter
--- OUTSIDE RECORDS SUMMARY | 2024-11-15 10:18 | XMS_ITS | Encounter Summary ---
Author Organization [employer] Address [address] [facility] [address] [place] [address] Care Team Providers Care Cafeteria Monitor Name Role Phone Braydon Owusu MD Primary Care Provider [phone] Reason for Referral * Consultation (Routine) - Authorized Specialty Diagnoses / Procedures Referred By Fan t Referred To Contact Urology Diagnoses Benign prostatic hyperplasia with nocturia Braydon Owusu MD [address] [place] [address] Phone: tel: fax: [facility] [address] [place] [address] Drive [address] [place], [place] Phone: tel: fax: Referral ID Status Reason Start Date Expiration Date Visits Requested Visits Authorized [id number] Authorized Specialty Services Required 11/12/2024 11/12/2025 1 1 Reason for Visit * Reason Comments Hypertension Encounter Details Date Type Department Care Team (Late st Contact Info) Description 11/12/2024 3:30 PM EDT Office Visit [facility] MEDICINE [address] [place], [place] [phone] Braydon Owusu MD [address] [place], [place] [phone] Essential hypertension (Primary Dx); History of pneumonia; Benign prostatic hyperplasia with nocturia Social History Tobacco Use Types Packs/Day Years [...] the past 12 months, has t he electric, gas, oil or water company threatened to [...] AM EDT documented as of this encounter Last Filed Vital Signs Vital Sign Reading [...] Mass Index 28.99 11/12/2024 3:45 PM EDT documented in this encounter Progress Notes * Braydon Owusu MD - 11/12/2024 3:30 PM EDT Subjective Patient ID: Bipin Gold is a 73 y.o. male who presents for Hypertension. Patient comes for follow-up visit and he feels well. BP was initially elevated. Repeat blood pressure was normal. He is using his medications as prescribed. The patient is physically active. 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 He is not having any chest pains and no shortness of breath. He was treated for bacterial pneumonia last month and he has recovered completely. He does not haveany residual cough or shortness of breath. He is complaining of persistent symptoms of prostatism including nocturia, he has to strain to urinate despite the use of Proscar and tamsulosin. Review of Systems Constitutional: Negative for chills, fatigue and fever. HENT: Negative for sore throat. Respiratory: Negative for cough, chest tightness and shortness of breath. Cardiovascular: Negative for chest pain, palpitations and leg swelling. Gastrointestinal: Negative for abdominal pain and blood in stool. Genitourinary: Positive for difficulty urinating. Negative for hematuria. Visit Vitals BP 119/68 Pulse 78 Temp 98 ??F (36.7 ??C) (Temporal) Resp 12 Ht 5' 6 (1.676 m) Wt 179 lb 9.6 oz (81.5 kg) SpO2 94% BMI 28.99 kg/m?? Smoking Status Never BSA 1.95 m?? Objective Physical Exam Constitutional: Appearance: Normal appearance. Cardiovascular: Rate and Rhythm: Normal rate and regular rhythm. Heart sounds: No murmur heard. Pulmonary: Effort: Pulmonary effort is normal. No respiratory distress. Breath sounds: No wheezing, rhonchi or rales. Abdominal: Palpations: Abdomen is soft. Tenderness: There is no abdominal tenderness. Musculoskeletal: Right lower leg: No edema. Left lower leg: No edema. Neurological: Mental Status: He is alert. Assessment/Plan Diagnoses and all orders for this visit: Essential hypertension Comments: Well-controlled. Continue current medications. History of pneumonia Comments: Symptoms of the patient have resolved. No need to recheck x-ray. Benign prostatic hyperplasia with nocturia Comments: Recheck PSA and UA. Continue tamsulosin and Proscar. Referral to urology. Orders: - Referral to Urology; Future - PSA,Total; Future - Urinalysis, Complete, with Reflex to Culture; Future documented in this encounter Plan of Treatment Scheduled Orders Name Type Priority Associated Diagnoses Orde r Schedule PSA,Total Lab Routine Benign prostatic hyperplasia with nocturia Expected: 11/12/2024, Expires: 11/12/2025 Urinalysis, Complete, with Reflex to Culture Lab Routine Benign prostatic hyperplasia with nocturia Expected: 11/12/2024 (Approximate), Expires: 11/12/2025 Scheduled Referrals Name Type Priority Associated Diagnoses Orde r Schedule Referral to Urology Outpatient Referral Routine Benign prostatic hyperplasia with nocturia Expected: 11/12/2024 (Approximate), Expires: 11/12/2025 documented as of this encounter Visit Diagnoses Diagnosis Essential hypertension- Primary Unspecified essential hypertension History of pneumonia Personal history of pneumonia (recurrent) Benign prostatic hyperplasia with nocturia documented in this encounter Additional Health Concerns Assessment Noted Time PHQ-9 Depression Total Score: 3 11/13/19 25 4:16 PM EDT documented as of this encounter Care Teams Cafeteria Monitor Relationship Specialty Start Date End Date Name, MD Braydon [address] [place] [address] PCP - General Family Medicine 08/11/18 documented as of this encounter
--- OUTSIDE RECORDS SUMMARY | 2024-11-15 10:18 | XMS_ITS | Encounter Summary ---
Author Organization [employer] Address [address] [facility] [address] [place] [address] Care Team Providers Care Machine Builder Name Role Phone Name, Braydon COLE Primary Care Provider [phone] Encounter Details Date Type Department Care Team ([facility] st Contact Info) Description 02/17/2024 Orders Only [facility] MEDICINE [address] [place] [address] Name, MD Braydon [address] [place], [place] [phone] Social History Tobacco Use Types Packs/Day Years Used Date Smoking Tobacco: Never Smokeless Tobacco: Never Alcohol Use Standard Drinks/Week Comments Never 0 (1 standard drink = 0.6 oz pur e alcohol) Depression Answer Date Recorded Patient Health Questionnaire-9 Score 0 02/07/2023 Housing Stability Answer Date Recorded What is your housing situation today? I have caseyrebecca samano 06/10/[address] you [...] Answer Date Recorded Patient Health Questionnaire-2 Score 0 02/07/2023 Sex and Gender Information Value Date Recorded Sex Assigned at Male 06/10/2022 10:17 AM EDT Legal Sex Male 10:17 AM EDT Gender Identity Male 06/10/2022 10:17 AM EDT Sexual Orientation Straight 06/10/2022 10 :17 AM EDT documented as of this encounter Plan of Treatment Not on file documented as of this encounter Visit Diagnoses Not on filedocumented in this encounter Additional Health Concerns Assessment Noted Time PHQ-9 Depression Total Score: 0 02/08/20 23 10:06 AM EDT documented as of this encounter Care Teams Machine Builder Relationship Specialty Start Date End Date Name, MD Braydon [address] [place] [address] PCP - General Family Medicine 08/11/18 documented as of this encounter
--- OUTSIDE RECORDS SUMMARY | 2024-11-15 10:18 | XMS_ITS | Encounter Summary ---
Author Organization [employer] Address [address] [facility] [address] [place] [address] Care Team Providers Care Timber Incisor Operator Name Role Phone Name, Braydon COLE Primary Care Provider [phone] Encounter Details Date Type Department Care Team (Latest Contact Info) Description 11/12/2024 Travel Social History Tobacco Use Types Packs/Day Years [...] documented as of this encounter Care Teams Timber Incisor Operator Relationship Specialty Start Date End Date Name, MD Braydon [address] [place] [address] PCP - General Family Medicine 08/11/18 documented as of this encounter
--- OUTSIDE RECORDS SUMMARY | 2024-11-15 10:18 | XMS_ITS | Data Portability ---
Author Organization [employer] Address [address] [place] [phone] Care Team Providers Care Strategic Marketing Leader Name Role Phone [facility] Referring Provider HIM [facility] OTHER Assessment Encounter Date Assessment Date Assessment LastModified by Organization Details LastModified Time 10/23/2022 10/23/2022 I have reviewed and agree with the assessment and plan as documented by the axle turner. I provided real time medical direction for this encounter and was immediately available to provide additional phone based assistance as needed. History as noted by axle turner. Pt with several days of dizziness. He describes spinning sensation upon standing or with walking. He denies lightheadedness or presyncope. No gait or vision changes. No headache, neck pain or nausea/vomiting. No ear pain or hearing loss. On exam, pt appears well. Vitals ok, no orthostatic BP or HR changes. Neuro exam and gait normal. EKG normal. POC BMP and Hgb/Hct normal. Impression: Pt's presentation and evaluation appears c/w BPPV. Diagnosis d/w the pt with help of full time staff interpreter over phone. Pt has no concerning neuro symptoms, AMATO, or abnormal findings on exam. No orthostatic BP or HR changes. Pt medicated with meclizine 25mg po and I prescribe this for him as well to use tid. Primary care team needs to f/u with the pt in the next 2-3 days to ensure he is feeling improved with the meclizine. If he is not improving, he will need further evaluation and likely neurology referral. Pt instructed to seek medical attention right away with any worsening or new symptoms, which are reviewed with him. btils Not available 10/23/2022 14:16:29 Plan of Treatment Reminders Order Date Submit Date Provider Last Modified By Organization Details Last Modified Time Details Appointments None recorded. Lab BMP, serum or plasma 2022 023 btils [facility], [address] [place] [address], [phone] 3 11:16:42 hemoglobin + hematocrit, blood 2022 023 btils [facility], [address] [place] [address], [phone] 3 11:16:42 culture, urine 2021 022 RL [facility] (Centralized Electronic Ordering - All Locations), Patient Can Go To The Location Of Their Choice, 08:40:44 Referral None recorded. Procedures None recorded. Surgeries None recorded. Imaging electrocard iogram 2022 023 [facility], [address] [place] [address], [phone] 3 11:16:42 Medication Orders meclizine 25 mg tablet 2022 023 [facility] #[id number], [address] [place], [address], 11:16:46 meclizine 25 mg tablet 2022 023 btils Not available 11:16:42 Patient TargetsNo targets recorded. Patient InstructionsNo instructions recorded. Reason for Referral None Reported. Results Created Date Observation Date Name Description Value Unit Range Abnormal Flag Note LastModifiedBy Organization Detail LastModifiedTime 12/14/1912/14/2021 UA W/REF YANETH CULTU RE appear/color LIGHT YELLO W CLEAR Not Available [facility] (Centralized Electronic Ordering - All Locations) Patient Can Go To The Location Of Their Choice, 12/14/2021 00:16:12 12/14/1912/14/2021 UA W/REF YANETH CULTU RE sp. gravity 1.015 (1.002 -1.030 ) Not Available [facility] (Centralized Electronic Ordering - All Locations) Patient Can Go To The Location Of Their Choice, 12/14/2021 00:16:12 12/14/1912/14/2021 UA W/REF YANETH CULTU RE urine pH 6.0 (5.0-8 .0) Not Available [facility] (Centralized Electronic Ordering - All Locations) Patient Can Go To The Location Of Their Choice, 12/14/2021 00:16:12 12/14/1912/14/2021 UA W/REF YANETH CULTU RE urine albumin NEGATI VE (neg) Not Available [facility] (Centralized Electronic Ordering - All Locations) Patient Can Go To The Location Of Their Choice, 12/14/2021 00:16:12 12/14/1912/14/2021 UA W/REF YANETH CULTU RE urine glucose NEGATI VE (neg) Not Available [facility] (Centralized Electronic Ordering - All Locations) Patient Can Go To The Location Of Their Choice, 12/14/2021 00:16:12 12/14/1912/14/2021 UA W/REF YANETH CULTU RE urine ketones NEGATI VE (neg) Not Available [facility] (Centralized Electronic Ordering - All Locations) Patient Can Go To The Location Of Their Choice, 12/14/2021 00:16:12 12/14/1912/14/2021 UA W/REF YANETH CULTU RE urine bilirubin NEGATI VE (neg) Not Available [facility] (Centralized Electronic Ordering - All Locations) Patient Can Go To The Location Of Their Choice, 12/14/2021 00:16:12 12/14/1912/14/2021 UA W/REF YANETH CULTU RE urine hemoglobin NEGATI VE (neg) Not Available [facility] (Centralized Electronic Ordering - All Locations) Patient Can Go To The Location Of Their Choice, 12/14/2021 00:16:12 12/14/1912/14/2021 UA W/REF YANETH CULTU RE urine nitrite NEGATI VE (neg) Not Available [facility] (Centralized Electronic Ordering - All Locations) Patient Can Go To The Location Of Their Choice, 12/14/2021 00:16:12 12/14/1912/14/2021 UA W/REF YANETH CULTU RE urine leukocyte NEGATI VE (neg) Not Available [facility] (Centralized Electronic Ordering - All Locations) Patient Can Go To The Location Of Their Choice, 12/14/2021 00:16:12 12/14/1912/14/2021 UA W/REF YANETH CULTU RE urobilinogen NORMAL mg/dL (norm) Not Available [facility] (Centralized Electronic Ordering - All Locations) Patient Can Go To The Location Of Their Choice, 12/14/2021 00:16:12 12/14/1912/14/2021 UA W/REF YANETH CULTU RE urine WBCs NONE SEEN /hpf (0-5) Not Available [facility] (Centralized Electronic Ordering - All Locations) Patient Can Go To The Location Of Their Choice, 12/14/2021 00:16:12 12/14/1912/14/2021 UA W/REF YANETH CULTU RE urine RBCs <1 /hpf (0-3) Not Available [facility] (Centralized Electronic Ordering - All Locations) Patient Can Go To The Location Of Their Choice, 12/14/2021 00:16:12 12/14/1912/14/2021 UA W/REF YANETH CULTU RE clarity CLEAR (clear ) Not Available [facility] (Centralized Electronic Ordering - All Locations) Patient Can Go To The Location Of Their Choice, 12/14/2021 00:16:12 12/14/1912/14/2021 UA W/REF YANETH CULTU RE culture indication CULTUR E NOT INDICA LAURA Not Available [facility] (Centralized Electronic Ordering - All Locations) Patient Can Go To The Location Of Their Choice, 12/14/2021 00:16:12 10/24/1910/23/2022 hemog lobin + hemat ocrit , blood Hemoglobin 16.7 Not Available Main - [address], [phone] 10/23/2022 11:15:07 10/24/19 23 10/23/2022 hemog lobin + hemat ocrit , blood Hematocrit 49 Not Available Main - [address], [phone] 10/23/2022 11:15:07 10/24/19 23 10/23/2022 BMP, serum or plasm a BUN 12 Not Available [facility] - [facility] [address], [phone] 10/23/2022 11:14:55 10/24/19 23 10/23/2022 BMP, serum or plasm a CI- 95 Not Available Main - [facility] [address], [address] [place] [address] 10/23/2022 11:14:55 10/24/19 23 10/23/2022 BMP, serum or plasm a CRE 1.1 Not Available Main - [facility] [address], [address] [place] [address] 10/23/2022 11:14:55 10/24/19 23 10/23/2022 BMP, serum or plasm a GLU 89 Not Available Main - [facility] [address], [address] [place] [address] 10/23/2022 11:14:55 10/24/19 23 10/23/2022 BMP, serum or plasm a K+ 4.1 Not Available Main - [facility] [address], [address] [place] [address] 10/23/2022 11:14:55 10/24/19 23 10/23/2022 BMP, serum or plasm a Na+ 132 Not Available [facility] - Ins [address], [address] [place] [address] 10/23/2022 11:14:55 10/24/19 23 10/23/2022 BMP, serum or plasm a tCO2 27 Not Available [facility] - Ins [address], [address] [place] [address] 10/23/2022 11:14:55 10/24/19 23 10/23/2022 carlyn wells am No observ ation record ed. [address], [address] [place] [address] 10/23/2022 11:16:44 Result Notes None recorded. Procedures Surgical History None recorded. Imaging Results Imaging Date Name Status LastModified by Organization Details LastModified Time 10/23/2022 electrocardiogram completed [address], [address] [place] [address] 10/23/2022 11:16:44 Procedure Notes None recorded. Medical Equipment None Reported. Allergies Allergen ID Allergen Name Allergen Category Reaction Reaction Severity Criticality Documentation Date Start Date Code Code System Note Provider Name and Address Organization Details Recorded Time 7863 Product containin g penicilli n (product) medicatio n Not available Not available Not available 06/08/2024 91108 8001 SNOMED Not Available [facility] - production 03:40:17 Medications Name Sig Start Date Stop Date Status Note LastModified by Organization Details LastModified Time atorvastatin 40 mg tablet TOME HALIE TABLETA TODOS LOS D active Not Available Not Available No t Available doxycycline hyclate 100 mg capsule TOME HALIE C PSULA DOS VECES AL D A active Not Available Not Available No t Available acetaminophe n 500 mg tablet TOME HALIE TABLETA POR V A ORAL CADA SEIS HORAS CUANDO SEA NECESARIO active Not Available Not Available No t Available tamsulosin 0.4 mg capsule TOME 1 C PSULA POR V A ORAL TODOS LOS D 1/2 HOUR FOLLOWING THE SAME MEAL EACH DAY active Not Available Not Available No t Available meclizine 25 mg tablet Take 1 tablet by oral route. 2022 active Not Available Not Available Not Avai lable amlodipine 10 mg tablet TOME HALIE TABLETA TODOS LOS D active Not Available Not Available No t Available doxycycline monohydrate 100 mg capsule TAKE 2 ( TWO) AT ONCE FIRST DAY THEN ON 1 CAPSULE DAILY UNTIL GONE active Not Available Not Available No t Available cephalexin 500 mg capsule active Not Available Not Available Not Available omeprazole 20 mg capsule,lorenza yed release TOME HALIE C PSULA TODOS LOS D 30 MINUTES TO 1 HOUR BEFORE A MEAL active Not Available Not Available No t Available oxcarbazepin e 600 mg tablet TAKE 1 TABLET TWICE A DAY BY ORAL ROUTE FOR 90 DAYS. active Not Available Not Available No t Available ibuprofen 600 mg tablet TOME HALIE TABLETA SYED VECES AL D A CON ALIMENTO CUANDO SEA NECESARIO active Not Available Not Available No t Available finasteride 5 mg tablet TOME HALIE TABLETA TODOS LOS D active Not Available Not Available No t Available Vitamin B-12 1,000 mcg tablet TOME HALIE TABLETA TODOS LOS D active Not Available Not Available No t Available Mapap Arthritis Pain 650 mg tablet,exten ded release PLEASE SEE ATTACHED FOR DETAILED DIRECTIONS active Not Available Not Available N ot Available hydrochlorot hiazide 12.5 mg tablet TOME HALIE TABLETA TODOS LOS D active Not Available Not Available No t Available Ilevro 0.3 % eye drops,suspen kareem INSTILL 1 DROP INTO AFFECTED EYE AT BEDTIME DIRECTED active Not Available Not Available No t Available Vitals Date Recorded Heart rate Oxygen saturation Oxygen saturation in Arterial blood by Pulse oximetry Body temperature Respiratory rate Systolic blood pressure Diastolic blood pressure Provider Name and Address Organization Details Last Updated DateTime 2 68 /min 96 % 96 % 98.1 [degF] 18 /min 140 mm[Hg] 90 mm[Hg] Not Available [facility] - production 2 18:06:34 Date Recorded Oxygen saturation Oxygen saturation in Arterial blood by Pulse oximetry Body temperature Heart rate Respiratory rate Respiratory rate Heart rate Oxygen saturation Oxygen saturation in Arterial blood by Pulse oximetry Body temperature Oxygen saturation Oxygen saturation in Arterial blood by Pulse oximetry Respiratory rate Body temperature Heart rate Systolic blood pressure Diastolic blood pressure Systolic blood pressure Diastolic blood pressure Systolic blood pressure Diastolic blood pressure Provider Name and Address Organization Details Last Updated DateTime 3 99 % 99 % 97.5 [degF] 70 /min 14 /min 14 /min 70 /min 99 % 99 % 97.5 [degF] 99 % 99 % 14 /min 97.5 [degF] 70 /min 133 mm[Hg] 75 mm[Hg] 133 mm[Hg] 75 mm[Hg] 133 mm[Hg] 75 mm[Hg] Not Available [facility] - production 3 11:45:40 Social History None recorded. Functional Status None recorded. Mental Status None recorded. Family History Nothing Reported. Medical History No medical history recorded. Past Encounters Encounter ID Performer Location Encounter Start Date Encounter Closed Date Diagnosis/Indication Diagnosis SNOMED-CT Code Diagnosis ICD10 Code Diagnosis Note [id number] Iftikhar Peter MD [facility] - [facility] [address] [place] [phone] 12/13/2021 18:06:18 05/03/2022 15:51:59 Dysuria 63327245 R30.9 Will await urine culture prior to treatment- Not able to do G/C test today; advised to f/u with PCP re: alternativ e causes for dysuria including STI's- Advised on red flag signs for when to follow-up [id number] Sam Sabillon MD [facility] - [facility] [address] [place] [phone] 03/27/2022 18:39:58 05/07/2022 15:42:32 Gastroenteritis 88374515 K52.9 This 80-year-ol d male has had loose stools for 4 days. Her was evaluated in the ER several days ago with a negative workup. He was prescribed immodium be his family was unsure how often to give it. He has had no new systemic symptoms. I recommende d that he take scheduled immodium and follow a bland diet. He will follow up with his PCP. The patient and his caregivers agreed with this plan. [id number] Jacob Avila MD [facility] [employer] [address] [place] [phone] 10/23/2022 11:04:37 10/25/2022 10:57:12 Benign paroxysmal positional vertigo [id number] H81.13 Health Concerns Section Related Observation LastModified by Organization Detai ls LastModified Time None Recorded Concern Status LastModified by Organization Details LastModified Time None Recorded Advance Directives Directive None Recorded Payers Encounter Date Sequence Insurance Name Policy Number Policy Mullins Covered Member ID Mullins Member ID Guarantor Name 12/13/2021 1 [facility] - DOS PRIOR TO 2022 - DUAL ELIGIBLE (MEDICARE REPLACEMENT/ADV ANTAGE - HMO) Bipin Mcgrath [id number] Bipin Mcgrath 03/27/2022 1 [facility] - DOS PRIOR TO 2022 - DUAL ELIGIBLE (MEDICARE REPLACEMENT/ADV ANTAGE - HMO) Bipin Mcgrath [id number] Bipin Mcgrath 10/23/2022 1 [facility] - DOS PRIOR TO 2022 - DUAL ELIGIBLE (MEDICARE REPLACEMENT/ADV ANTAGE - HMO) Bipin Mcgrath [id number] Bipin Mcgrath Notes Date Note Type Note Provider Name and Address Organization Details Recorded Time 12/13/2021 text/html HPI: Member said he has been having pain whenever he urinates. He denies having nausea and fever. Note:- Dysuria- Not frequent uti's- Not able to do G/C test today; advised to f/u with PCP re: alternative causes for dysuria including STI's Iftikhar Peter MD [address] [place] [address],[address], [place], [phone], [facility] [facility] 12/13/2021 18:11:19 03/27/2022 text/html HPI: Patient reports having mild diarrhea and abdominal pain x 4 days. Onset was 03/25/22. Watery yellow. No blood in stool. No vomiting. Mild dizziness. Pt states has used OTC Imodium with no relief. Seen at [facility] 03/25/22 negative COVID-19. Pt unable to come into walk in center. Needs assessment and to r/o dehydration. .................. .................. .................. .................. .................. .................. .................. ............... CRC Nursing Assessment: Comments: CRC RN DID NOT NEED MORE INFO Sam Sabillon MD [address] [place] [address],[address], [place], [phone], [employer] 03/27/2022 18:46:05 10/23/2022 text/html This was a supervised home visit with axle turner Lisandro Tate. HPI: Member said he has been having dizziness since friday. He said he gets really dizzy when he gets up. he check his bp this afternoon it was 154/77. .................. .................. .................. .................. .................. .................. .................. ............... CRC Nursing Assessment: Comments: Email sent to requestor with high importance at [facility] to see how she would like to proceed as our medics are grounded until further notice- Maame 10/22 2:09p- received email back from [facility], visit tomorrow will be accepted, she is to notify member- aMame .................. .................. .................. .................. .................. .................. .................. ............... Physician'S Assistant Note From Lisandro Tate: Pt answers door downstairs. strong language barrier, used full time staff interpreter throughout. Pt complains of dizziness ? ? 3 days, started while he was working. Pt denies pain, nausea, vomiting or any other complaints. Pt states it feels like his head is spinning. Pt states its the same if he lays down or walks. Pt denies recent trauma or falls. Orthostatic VS unchanged, BMP and 12 lead as noted, no significant findings. CMS intact, pupils equal and reactive to light. [facility] contacted and orders meclazine 25mg and will call in a RX to local pharmacy. Meclazine administered, no change in pt condition. Pt left with family in home. Pt advised to follow up with PCP and red flags and pt education discussed. Physician'S Assistant Allergies: Penicillin .................. .................. .................. .................. .................. .................. .................. ............... Disposition: Delvin Avila MD [address] [facility],[address], [place], [phone], [employer] 10/23/2022 14:16:53
[2024-11-15 11:24] LABS: Appearance Urine Clear; Color Urine Yellow; Glucose Urine UA Negative (Negative); Leukocyte Esterase Urine Negative (Negative); Nitrite Urine Negative (Negative); Specific Gravity - Urine 1.015 (1.005-1.025); Urine Blood Negative (Negative); Urine Ketones Negative (Negative); Urine Protein Negative (Neg-Trace)
[2024-11-15 11:26] LABS: Bacteria Urine None Seen (None Seen); Hyaline Casts Urine 0-2 /LPF (0-2); RBC Urine 0-2 /HPF (0-2); Squamous Epithelial Cell Urine 0-2 /HPF (0-2); WBC Urine 0-5 /HPF (0-5)
[2024-11-15 11:59] LABS: Prostate Specific Antigen 0.85 ng/mL (<0.05-4.0)
== END 2024-11-15 09:15 | disposition home or self-care (01) ==
LOC: HO.HHCL 09:14
PROVIDERS: Visit Provider Internal Medicine Geriatric Medicine
DX: N40.1 Benign prostatic hyperplasia with lower urinary tract symptoms (principal); R35.1 Nocturia; Z12.5 Encounter for screening for malignant neoplasm of prostate
CPT/HCPCS: 36415; 81001; 84153

== ENCOUNTER 2025-01-17 14:46 | Outpatient (AMB) | payer MEDICARE, SELFPAY ==
--- NOTE | 2025-01-17 15:14 | MHC.OFFVIS ---
Intake Visit Reasons: BPH, Nocturia Intake Note: New Patient presents for initial visit for BPH and Nocturia Urology Medications: Tamsulosin Blood Thinner: none PVR: 0ml's Project Admin Required: Yes Project Admin Services: Project Admin Present Project Admin Name: Guevara Webb [id number] Accompanied by: Unknown Allergies Penicillins Allergy (Intermediate, Verified 01/17/25 15:43) Swelling Medication List - Last Reconciled 01/17/25 by KHLOE LuceroP- amlodipine 10 mg PO DAILY atorvastatin 40 mg PO DAILY finasteride 5 mg PO DAILY hydrochlorothiazide 12.5 mg PO DAILY omeprazole 20 mg PO DAILY tamsulosin 0.8 mg PO DAILY HPI Comments Details: Bipin is a very pleasant 74-year-old Portuguese-speaking male patient of Dr. Owusu who was accompanied by his significant other at today's office visit. He has a past medical history of hypertension, hyperlipidemia, and GERD. He presents to the office today as a new patient for ongoing lower urinary tract symptoms he has been experiencing. In discussion with the patient today he reports having followed up with his PCP in discussing ongoing issues of urinary hesitancy and feeling of incomplete bladder emptying at which time he was started on Flomax and finasteride. He reports feeling somewhat improvement in his lower urinary tract symptoms with these medications. In office urinalysis results reviewed with the patient today. PVR 0 mL. In review of patient's chart it appears PSAs are as follows: PSA 03/02 0.5, 12/03 0.9 We discussed potential causes of lower urinary tract symptoms patient is experiencing as well as further treatment options and risks and benefits of these treatment options. He otherwise denies incontinence, nocturia, hematuria, foul smelling urine, changes to urinary stream, flank pain, fever, and or chills. Will obtain retroperitoneal ultrasound for further assessment evaluation. We discussed potential near future in office cystoscopy and or urodynamics for further assessment evaluation. All questions were answered. He otherwise offers no other issues or concerns at this time. [facility] Social History (Updated 03/26/23 @ 14:30 by KARRIE Leija) Alcohol intake: never Patient Tobacco Use Status: Never used Tobacco Current occupational status: disabled Current occupation: right hand dominant Review of Systems Const All systems reviewed & are unremarkable except as noted in HPI and below Physical Exam Const General: cooperative, healthy appearing, comfortable, no acute distress, well developed, alert and awake Orientation/consciousness: patient oriented x3 Limitations: no limitations HEENT Head: Yes normal to inspection, Yes normocephalic and Yes atraumatic Ears: hearing grossly normal bilaterally Eyes General: appearance normal, both eyes and all related structures Neck Neck: Yes normal visual inspection and Yes trachea midline Chest Chest palpation & inspection: normal inspection of the chest Resp Effort & Inspection: normal respiratory effort and able to speak in complete sentences Cardio Rate: regular rate GI Inspection: Yes normal to inspection General: Yes no CVA tenderness Back/Spine/Pelvis Back: no CVA tenderness Skin General skin exam: no rashes or lesions noted Neuro General: patient oriented x3 Extrem General: Yes normal to inspection Psych Appearance: grossly normal and well kempt Mental Status: mental status grossly normal Speech and movement: Normal speech and movement present and Clear speech present Affect: normal affect Attitude: cooperative Thought process: Normal thought process present Thought content: Normal thought content present Insight: Fair insight present (Psych) Judgement: Fair judgement present (Psych) Office Procedures Post Void Residual Post Residual Void Post Void Residual (PVR): 0 27942-Nnnt Void Residual by ultrasound Results AMB Urinalysis, Automated UA Leukoctes 0 Daniel/uL Last Edit by Kirstin Gr [facility] on 01/17/25 16:05 UA Nitrite Last Edit by Kirstin Gr [facility] on 01/17/25 16:05 UA Urobilinogen 0.2 mg/dL Last Edit by Kirstin Gr [facility] on 01/17/25 16:05 UA Protein 0 mg/dL Last Edit by Kirstin Gr [facility] on 01/17/25 16:05 UA pH 6.0 Last Edit by Kirstin Gr [facility] on 01/17/25 16:05 UA Blood 0 Cecilio/uL Last Edit by Kirstin Gr [facility] on 01/17/25 16:05 UA Specific Hadley 1.010 Last Edit by Kirstin Gr [facility] on 01/17/25 16:05 UA Ketone Last Edit by Kirstin Gr [facility] on 01/17/25 16:05 UA Bilirubin 0 mg/dL Last Edit by Kirstin Gr [facility] on 01/17/25 16:05 UA Glucose 0 mg/dL Last Edit by NGHIA Gilbert on 01/17/25 16:05 Results Reviewed Results Reviewed: Laboratory Last Values Urine pH (Auto) 6.0 01/17/25 16:04 Specific Hadley (Auto) 1.010 01/17/25 16:04 Urine Protein (Auto) 0 mg/dL 01/17/25 16:04 Glucose (UA)(Auto) 0 mg/dL 01/17/25 16:04 Urine Blood (Auto) 0 Cecilio/uL 01/17/25 16:04 Urine Bilirubin (Auto) 0 mg/dL 01/17/25 16:04 Urine Urobilinogen (Auto) 0.2 mg/dL 01/17/25 16:04 Leukocyte Esterase (Auto) 0 Daniel/uL 01/17/25 16:04 Assessment & Plan Assessment & Plan (1) Urinary hesitancy due to benign prostatic hyperplasia: Code(s): N40.1 - Benign prostatic hyperplasia with lower urinary tract symptoms; R39.11 - Hesitancy of micturition Category: Medical (2) Feeling of incomplete bladder emptying: Code(s): R39.14 - Feeling of incomplete bladder emptying Category: Medical Plan In office urinalysis results reviewed with the patient today; as noted above. PVR 0 mL. We discussed potential causes of lower urinary tract symptoms patient is experiencing as well as further treatment options and risks and benefits of these treatment options. Recent PSA results reviewed with the patient today; as noted above. Continue Flomax and finasteride as prescribed. Will obtain retroperitoneal ultrasound for further assessment evaluation. We discussed potential for near future in office cystoscopy and or urodynamics if symptoms persist and/or worsen. Follow-up in 1-3 months with imaging and PVR; or sooner with any issues, concerns, and or questions. Orders: Orders US retroperitoneal comp Today N40.1 - Benign prostatic hyperplasia with lower urinary tract symptoms, R39.11 - Hesitancy of micturition, R39.14 - Feeling of incomplete bladder emptying AMB Post Void Residual by ultrasound Today R39.14 - Feeling of incomplete bladder emptying AMB Urinalysis Automated Today Z13.9 - Encounter for screening, unspecified Patient Instructions: The patient had an opportunity to ask questions regarding the treatment plan. All questions were answered. Physical exam, labs, and imaging were discussed and reviewed in detail. As well as risks, benefits, and discussion of treatment choices. No major barriers to understanding were identified. The patient expressed understanding and agreement with the above treatment plan. The patient was made aware they should contact our office by phone for worsening of their current condition, the appearance of new symptoms, or with any questions or concerns. Compliance is encouraged with any medications and follow up testing that is ordered. It is a privilege to be allowed the opportunity to participate in? your urological care.? Again, if you have any questions or concerns If you have any questions or concerns please do not hesitate to contact me. The office is [phone]. This note is constructed using voice recognition software. While every effort has been made to ensure accuracy electronic game developer errors may have been included. Yours sincerely, MAX Lucero Coding Level of Care Code New Pt Level 3 (79955) Diagnoses Urinary hesitancy due to benign prostatic hyperplasia N40.1; R39.11 Feeling of incomplete bladder emptying R39.14 CPT Codes Post Residual Void - PVR CPT Code: 52123-Cadg Void Residual by ultrasound ([id number])
--- OUTSIDE RECORDS SUMMARY | 2025-01-17 16:33 | XMS_ITS | Encounter Summary ---
Author Organization [facility] Address [address] [place] [address] Care Team Providers Care Factory Maintenance Manager Name Role Phone Name, Braydon COLE Primary Care Provider Unavailabl e Savannah Meraz MD Primary Care Provider [phone] Community, Pcp Primary Care Provider Unavailabl e Name, Braydon COLE Primary Care Provider Unavailabl e Community, Pcp Primary Care Provider Unavailabl e Name, Braydon COLE Primary Care Provider Unavailabl e Severo Pressley MD Unavailable [phone] Reason for Visit * Reason Comments E-prescribe Rx Request Encounter Details Date Type Department Care Team Description 06/01/2015 Refill Rheumatology - [address] [address] Delma Reyes MD E-prescribe Rx Request Social History Tobacco Use Types Packs/Day Years Used Date Smoking Tobacco: Never Smokeless Tobacco: Never Alcohol Use Standard Drinks/Week Comments No 0 (1 standard drink = 0.6 oz pur e alcohol) Sex Assigned at Date Recorded Not on file documented as of this encounter Miscellaneous Notes * Telephone Encounter - Mahogany Fowler L.P.N. - 06/01/2015 1:08 PM EDT What did you want to do with this? Is this something you give her or would you like this call triaged by her pcp staff? * Telephone Encounter - Nubia Weinstein - 06/01/2015 10:43 AM EDT Patient would like script to be: E-PRESCRIBED/FAXED TO PHARMACY WHEN WAS THE PATIENT'S LAST APPOINTMENT IN ADULT MEDICINE? WHEN WAS THE LAST TIME THE PATIENT SAW THEIR PCP? Does patient have an upcoming appointment? (THE MEDICATION REQUESTED IS ON THE MED LIST ABOVE) All of the medications requested were on the CURRENT MEDS list Did you check the Pharmacy information above?: YES Patient wants: 30 -day supply Is this a mail order prescription request ? NO Patients current insurance carrier is: Payor: [employer] FFS / Plan: [employer] PLUS PLAN / Product Type: MEDICAID RISK documented in this encounter Plan of Treatment Not on file documented as of this encounter Visit Diagnoses Not on filedocumented in this encounter Care Teams Factory Maintenance Manager Relationship Specialty Start Date End Date Braydon Owusu MD PCP - General 09/15/09 08/24/15 Savannah Meraz MD [address] [place] [address] PCP - General Internal Medicine 08/25/15 10/04/15 [facility], Pcp [address] [place] [address] PCP - General Internal Medicine 10/05/15 05/27/16 Braydon Owusu MD [address] [place], [place] [id number] PCP - General 05/28/16 02/07/21 [facility], Pcp [address] [place] [address] PCP - General Internal Medicine 02/08/21 02/15/21 Braydon Owusu MD [address] [place] [address] PCP - General Internal Medicine 02/16/21 Severo Pressley MD [address] [place] [address] [place] [address] Supervisor Customer Complaint Service Cardiovascular Disease 02/16/21 documented as of this encounter
== END 2025-01-17 15:47 | disposition home or self-care (01) ==
LOC: HO.HUSH 14:47
PROVIDERS: PCP Internal Medicine Geriatric Medicine; Visit Provider Nurse Practitioner Family
DX: N40.1 Benign prostatic hyperplasia with lower urinary tract symptoms (principal); R39.11 Hesitancy of micturition; R39.14 Feeling of incomplete bladder emptying; Z13.9 Encounter for screening, unspecified
CPT/HCPCS: 99203

== ENCOUNTER → 2025-01-17 14:46 | Outpatient (BNVA) | payer OTHER, SELFPAY | PROVIDERS: PCP Internal Medicine Geriatric Medicine; Visit Provider Nurse Practitioner Family | DX: N40.1 Benign prostatic hyperplasia with lower urinary tract symptoms (principal); R39.14 Feeling of incomplete bladder emptying; R39.11 Hesitancy of micturition | CPT/HCPCS: 51798; 81003; 99202 ==

== ENCOUNTER 2025-04-05 13:23 | Outpatient (REF) | payer MEDICARE, SELFPAY ==
--- NOTE | ~2025-04-05 | US_ITS ---
EXAMINATION: US RETROPERITONEAL COMPLETE (RENAL) CLINICAL INFORMATION: Filling of incomplete bladder emptying.. COMPARISON: None available. TECHNIQUE: Real-time imaging of the kidneys and bladder. FINDINGS: RIGHT KIDNEY: 10 x 6 x 6 cm (SAG x AP x TRV). Volume: 191 cc. Normal echotexture. Normal renal cortical thickness. No hydronephrosis. No gross solid or cystic lesion detected. LEFT KIDNEY: 11 x 5 x 4 cm (SAG x AP x TRV). Volume: 123 cc. Normal echotexture. Normal renal cortical thickness. No hydronephrosis. There is a 6 mm hyperechoic abnormality in the midportion. BLADDER: Fluid-filled. Trabeculated wall. Bilateral ureteral jets are demonstrated. Prevoid bladder volume is 251 mL. Postvoid bladder volume is 112 mL. Prostate gland measures 3.2 x 3.5 x 4 cm and volume 24 cc. Dystrophic calcifications in the prostate gland. US/US retroperitoneal comp IMPRESSION: 112 cc of retained urine in a post void image. Normal-sized prostate gland with volume 24 cc. No hydronephrosis. 6 mm nonobstructing nephrolithiasis, left kidney.. Electronically signed by: Jaquan Mcguire MD 04/05/2025 02:25 PM EDT
--- OUTSIDE RECORDS SUMMARY | 2025-04-05 14:15 | XMS_ITS | Encounter Summary ---
Author Organization [facility] Address [address] [place] [address] Care Team Providers Care Line Patroller Name Role Phone Name, Braydon COLE Primary Care Provider Unavailabl e Savannah Meraz MD Primary Care Provider [phone] Community, Pcp Primary Care Provider Unavailabl e Name, Braydon COLE Primary Care Provider Unavailabl e Community, Pcp Primary Care Provider Unavailabl e Name, Braydon COLE Primary Care Provider Unavailabl e Severo Pressley MD Unavailable [phone] Encounter Details Date Type Department Care Team Description 04/11/2015 Orders Only Adult Medicine [address] [address] Sreekanth Farr PA-C Elevated LFTs (Primary Dx) Social History Tobacco Use Types Packs/Day Years Used Date Smoking Tobacco: Never Smokeless Tobacco: Never Alcohol Use Standard Drinks/Week Comments No 0 (1 standard drink = 0.6 oz pur e alcohol) Sex Assigned at Date Recorded Not on file documented as of this encounter Plan of Treatment Not on file documented as of this encounter Results * SONO ABDOMEN COMPLETE (05/17/2015 8:02 AM EDT) 05/17/2015 8:34 AM EDT Impressions [facility] - 05/17/2015 8:41 AM EDT Impression: Echogenic liver, most likely representing fatty infiltration. Cholelithiasis. Poor visualization of the pancreas. Otherwise normal abdominal ultrasound. Narrative [facility] - 05/17/2015 8:41 AM EDT History: Elevated LFTs. Abdominal ultrasound: The gallbladder contains multiple small mobile gallstones. There is no evidence of cholecystitis. The intra-and extrahepatic bile ducts are normal in caliber. The echogenicity in the liver is diffusely increased, most likely representing fatty infiltration. No focal abnormalities are demonstrated. The pancreas is poorly visualized due to overlying L. Contents. The liver, pancreas, spleen and kidneys are otherwise normal in size, configuration and echogenicity. There is no identifiable abnormality of the IVC or abdominal aorta. Procedure Note Sharath Luis MD - 05/17/2015 History: Elevated LFTs. Abdominal ultrasound: The gallbladder contains multiple small mobilegallstones. There is no evidence of cholecystitis. The intra-and extrahepatic bile ducts arenormal in caliber. The echogenicity in the liver is diffusely increased, most likely representingfatty infiltration. No focal abnormalities are demonstrated. The pancreas is poorly visualizeddue to overlying L. Contents. The liver, pancreas, spleen and kidneys are otherwise normal insize, configuration and echogenicity. There is no identifiable abnormality of the IVC orabdominal aorta. Impression: Echogenic liver, most likely representing fatty infiltration.Cholelithiasis. Poor visualization of the pancreas. Otherwise normal abdominal ultrasound. Sreekanth Farr PA-C ULTRASOUND [facility] OTHER EXTERNAL documented in this encounter Visit Diagnoses Diagnosis Elevated LFTs- Primary Other abnormal blood chemistry Elevated LFTs Other abnormal blood chemistry documented in this encounter Care Teams Line Patroller Relationship Specialty Start Date End Date Name, MD Braydon PCP - General 09/15/09 08/24/15 Savannah Meraz MD [address] [place] [address] PCP - General Internal Medicine 08/25/15 10/04/15 [facility], [address] [address] PCP - General Internal Medicine 10/05/15 05/27/16 Braydon Owusu MD [address] [place] [address] PCP - General 05/28/16 02/07/21 [facility], Pcp [address] [place] [address] PCP - General Internal Medicine 02/08/21 02/15/21 Braydon Owusu MD [address] [place] [address] PCP - General Internal Medicine 02/16/21 Severo Pressley MD [address] [place] [address] [place] [address] Drug Safety Coordinator Cardiovascular Disease 02/16/21 documented as of this encounter
--- OUTSIDE RECORDS SUMMARY | 2025-04-05 14:15 | XMS_ITS | Encounter Summary ---
Author Organization [facility] Address [address] [place] [address] Care Team Providers Care Handstitching Machine Armhole Feller Name Role Phone Name, Braydon COLE Primary Care Provider Unavailelza e Savannah Meraz MD Primary Care Provider [phone] Community, Pcp Primary Care Provider Unavailabl e Name, Braydon COLE Primary Care Provider Unavailabl e Community, Pcp Primary Care Provider Unavailabl e Name, Braydon COLE Primary Care Provider Unavailabl e Severo Pressley MD Unavailable [phone] Encounter Details Date Type Department Care Team Description 05/25/2015 Home Health Certification Medical Records [address] [place] [address] Social History Tobacco Use Types Packs/Day Years [...] on filedocumented in this encounter Care Teams Handstitching Machine Armhole Feller Relationship Specialty Start Date End Date Name, MD Braydon PCP - General 09/15/09 08/24/15 Savannah Meraz MD [address] [place] [address] PCP - General Internal Medicine 08/25/15 10/04/15 [facility], Pcp [address] [place] [address] PCP - General Internal Medicine 10/05/15 05/27/16 Braydon Owusu MD [address] [place] [address] PCP - General 05/28/16 02/07/21 [facility], Pcp [address] [place] [address] PCP - General Internal Medicine 02/08/21 02/15/21 Name, MD Braydon [address] [place] [address] PCP - General Internal Medicine 02/16/21 Severo Pressley MD [address] [place] [address] [place] [address] Rail Car Painter/Sandblaster Cardiovascular Disease 02/16/21 documented as of this encounter
--- OUTSIDE RECORDS SUMMARY | 2025-04-05 14:15 | XMS_ITS | Clinical Summary ---
Author Organization [facility] Address [address] [place] [address] Phone Care Team Providers Care Account Executive Trainee Name Role Phone Name, Braydon COLE Primary Care Provider [phone] Allergies Active Allergy Reactions Criticality Noted Date Comments Penicillins Anaphylaxis,Swelling High 12/07/2009 Medications albuterol 2.5 mg /3 mL (0.083 %) nebulizer solutionIndicat ions:Pneumonia of right lower lobe due to infectious organism Take 3 mL (2.5 mg total) by nebulization every 6 (six) hours if needed for wheezing. 75 mL 5 Active Surgical History Surgery Date Site/Laterality Comments HERNIA REPAIR PROCEDURE: HISTORICAL HERNIA REPAIR/ING COLONOSCOPY 06/14/2010 PROCEDURE: MS COLONOSCOPY FLX DX W/COLLJ SPEC WHEN PFRMD OTHER SURGICAL HISTORY PROCEDURE: HISTORY OTHER; COMMENT: Laparoscopic cholecystectomy Medical History Medical History Date Comments CVA (cerebrovascular acciden t) ([facility] V24, [facility] V28) DX:CVA (cerebrovascular acci dent) ([facility]) History of BPH DX:History of BP H Seizure disorder ([facility] V2 4, [facility] V28) DX:Seizure disorder ([facility]) Seasonal allergic rhinitis, unspecified trigger DX:Seasonal allergic [...] and al coholism Mother sinusitis Sister 1 OR Sister 2 Alive Sister 3 Alive Sister [...] 91 10/19/2024 10:58 PM EDT Temperature 36.8 C (98.2 F) 10/19/2024 10:58 PM EDT Respiratory Rate 18 10/19/2024 10:58 PM EDT [...] 07/14/2022 Social Influencers of Health Screening 07/14/2022 COVID-19 Vaccine ( season) 2024 06/25/2022, 06/25/2021, 10/25/2020 Depression Screening 08/11/2024 Influenza Vaccine (#1) 2025 3, 06/18/2022, 06/25/2021, Additional history exists Hypertension/CHF/CAD Annual [...] age to complete this topic Meningococcal B Vaccine Aged Out No l onger eligible based on patient's age to complete this topic RSV Immunization Patients Under 20 months Aged Out No longer eligible based on patient's age to complete this topic Varicella Vaccines Aged Out No longer eligible based on patient's age to complete this topic Procedures Procedure Name Priority Date/Time Associated Diagnosis Comments BASIC METABOLIC PANEL STAT 10/19/2024 11:21 PM EDT from Last 3 Months or Most Recently Relevant to Health Maintenance Results * (ABNORMAL) Basic metabolic panel (10/19/2024 11:21 PM EDT) Sodium 134 133 - 145 mmol/L LAB CHEMISTRY METHOD 10/20/2024 1:04 AM T [facility] Potassium 3.3(L) 3.5 - 5.5 mmol/L LAB CHEMISTRY METHOD 10/20/2024 1:04 AM EDT [facility] Chloride 97 96 - 110 mmol/L LAB CHEMISTRY METHOD 10/20/2024 1:04 AM [facility] CO2 28 21 - 32 mmol/L LAB CHEMISTRY METHOD 10/20/2024 1:04 AM EDT [facility] Anion Gap 9 3 - 11 LAB CHEMISTRY METHOD 10/20/2024 1:04 AM [facility] Glucose 129(H) 70 - 100 mg/dL LAB CHEMISTRY METHOD 10/20/2024 1:04 AM [facility] BUN 11 5 - 25 mg/dL LAB CHEMISTRY METHOD 10/20/2024 1:04 AM [facility] Creatinine 1.07 0.70 - 1.30 mg/dL LAB CHEMISTRY METHOD 10/20/2024 1:04 AM [facility] eGFR 74 >=60 mL/min/1. 73m2 LAB CHEMISTRY METHOD 10/20/2024 1:04 AM [facility] Comment:Calculation based on the Chronic Kidney Disease Epidemiology Collaboration (CKD-EPI) equation refit without adjustment for race. BUN/Creatinine Ratio 10.3 LAB CHEMISTRY METHOD 10/20/2024 1:04 AM [facility] Calcium 9.3 8.5 - 10.5 mg/dL LAB CHEMISTRY METHOD 10/20/2024 1:04 AM [facility] Blood Venous blood specimen / Unknown Venipuncture / Unknown 10/19/2024 11:21 PM EDT 10/20/2024 12:08 AM EDT us Mario Taylor MD LAB BLOOD ORDERABLES Final Resu lt [facility] [address] [place] [address], from Last 3 Months or Most Recently Relevant to Health Maintenance Insurance [employer] Member Subscriber Plan / Payer (Ef fective 2024-Present) Name:Alcides Gold Bipin Relation to Subscriber:Self Name:Bipin Devine Payer ID:[id number] Group ID:Not on file Type:Not on file Address: [place] [address] [address] [address] Care Teams Account Executive Trainee Relationship Specialty Start Date End Date Name, MD Braydon [address] [place] [address] PCP - General Internal Medicine 05/28/16
--- OUTSIDE RECORDS SUMMARY | 2025-04-05 14:15 | XMS_ITS | Encounter Summary ---
Author Organization [employer] Address [address] [facility] [address] [place] [address] Care Team Providers Care Outpatient Scheduler Name Role Phone Name, Braydon COLE Primary Care Provider [phone] Encounter Details Date Type Department Care Team ([facility] st Contact Info) Description 02/17/2024 Orders Only [facility] MEDICINE [address] [place] [address] Name, MD Braydon [address], [place] [id number] Social History Tobacco Use Types Packs/Day Years [...] documented as of this encounter Care Teams Outpatient Scheduler Relationship Specialty Start Date End Date Name, MD Braydon [address] [place] [address] PCP - General Family Medicine 08/11/18 documented as of this encounter
--- OUTSIDE RECORDS SUMMARY | 2025-04-05 14:15 | XMS_ITS | Encounter Summary ---
Author Organization [employer] Address [address] [facility] [address] [place] [address] Care Team Providers Care Logistics Team Leader Name Role Phone Name, Braydon COLE Primary Care Provider [phone] Encounter Details Date Type Department Care Team ([facility] st Contact Info) Description 10/14/2022 Orders Only [facility] MED & PEDS [address] [place] [address] Lily Barber LPN Social History Tobacco Use [...] on filedocumented in this encounter Care Teams Logistics Team Leader Relationship Specialty Start Date End Date Name, MD Braydon [address] [place] [address] PCP - General Family Medicine 08/11/18 documented as of this encounter
--- OUTSIDE RECORDS SUMMARY | 2025-04-05 14:15 | XMS_ITS | Encounter Summary ---
Author Organization [employer] [facility] Address [address] [facility] [address] [place] [address] Care Team Providers Care Toggle Press Folder And Feeder Name Role Phone Name, Braydon COLE Primary Care Provider [phone] Encounter Details Date Type Department Care Team (Late st Contact Info) Description 01/02/2023 Orders Only [facility] MEDICINE [address] [place], [place] [phone] Xiomara Young LPN Social History Tobacco Use [...] on filedocumented in this encounter Care Teams Toggle Press Folder And Feeder Relationship Specialty Start Date End Date Name, MD Braydon [address] [place] [address] PCP - General Family Medicine 08/11/18 documented as of this encounter
--- OUTSIDE RECORDS SUMMARY | 2025-04-05 14:15 | XMS_ITS | Encounter Summary ---
Author Organization [facility] Address [address] [facility] 7t [place] [address] Care Team Providers Care Curriculum And Instruction Specialist Name Role Phone Name, Braydon COLE Primary Care Provider [phone] Encounter Details Date Type Department Care Team (Late st Contact Info) Description 11/11/2022 Orders Only [facility] MEDICINE [address] [place], [place] [phone] Xiomara Young LPN Social History Tobacco Use [...] on filedocumented in this encounter Care Teams Curriculum And Instruction Specialist Relationship Specialty Start Date End Date Name, MD Braydon [address] [place] [address] PCP - General Family Medicine 08/11/18 documented as of this encounter
--- OUTSIDE RECORDS SUMMARY | 2025-04-05 14:15 | XMS_ITS | Encounter Summary ---
Author Organization [facility] Address [address] [place] [address] Care Team Providers Care Payroll Human Resources Assistant Name Role Phone Name, Braydon COLE Primary Care Provider Unavailabl e Savannah Meraz MD Primary Care Provider [phone] Community, Pcp Primary Care Provider Unavailabl e Name, Braydon COLE Primary Care Provider Unavailabl e Community, Pcp Primary Care Provider Unavailabl e Name, Braydon COLE Primary Care Provider Unavailabl e Severo Pressley MD Unavailable [phone] Reason for Visit * Reason Comments E-prescribe Rx Request Encounter Details Date Type Department Care Team Description 06/01/2015 Refill Rheumatology - [address] [address] Delma Reyes MD E-prescribe Rx Request Social [...] NO Patients current insurance carrier is: Payor: [employer] FFS / Plan: [employer] PLUS PLAN / Product Type: MEDICAID RISK documented in this encounter Plan of Treatment Not on file documented as of this encounter Visit Diagnoses Not on filedocumented in this encounter Care Teams Payroll Human Resources Assistant Relationship Specialty Start Date End Date Braydon Owusu MD PCP - General 09/15/09 08/24/15 Savannah Meraz MD [address] [place] [address] PCP - General Internal Medicine 08/25/15 10/04/15 [facility], Pcp [address] [place] [address] PCP - General Internal Medicine 10/05/15 05/27/16 Braydon Owusu MD [address] [place], [place] [id number] PCP - General 05/28/16 02/07/21 [facility], Pcp [address] [place] [address] PCP - General Internal Medicine 02/08/21 02/15/21 Braydon Owusu MD [address] [place] [address] PCP - General Internal Medicine 02/16/21 Severo Pressley MD [address] [place] [address] [place] [address] Validation Technician Cardiovascular Disease 02/16/21 documented as of this encounter
--- OUTSIDE RECORDS SUMMARY | 2025-04-05 14:16 | XMS_ITS | Encounter Summary ---
Author Organization [facility] Address [address] [place] [address] Care Team Providers Care Jalousie Installer Name Role Phone Name, Braydon COLE Primary Care Provider Unavailabl e Community, Pcp Primary Care Provider Unavailabl e Francoise, Braydon COLE Primary Care Provider Unavailabl e Severo Pressley MD Unavailable [phone] Encounter Details Date Type Department Care Team Description 12/26/2020 [facility] [address] [place] [id number] Abstract, Provider Social History Tobacco Use Types Packs/Day Years [...] on filedocumented in this encounter Care Teams Jalousie Installer Relationship Specialty Start Date End Date Braydon Owusu MD PCP - General 05/28/16 02/07/21 Community, Pcp PCP - General Internal Medicine 02/08/21 02/15/21 Braydon Owusu MD PCP - General Internal Medicine 02/16/21 Severo Pressley MD [address] [place] [address] [place] [address] Chuck Wagon Cook Cardiovascular Disease 02/16/21 documented as of this encounter
--- OUTSIDE RECORDS SUMMARY | 2025-04-05 14:16 | XMS_ITS | Encounter Summary ---
Author Organization [facility] Address [address] [place] [address] Care Team Providers Care Digital Content Specialist Name Role Phone Name, Braydon COLE Primary Care Provider Unavailelza e Savannah Meraz MD Primary Care Provider [phone] Community, Pcp Primary Care Provider Unavailabl e Name, Braydon COLE Primary Care Provider Unavailabl e Community, Pcp Primary Care Provider Unavailabl e Name, Braydon COLE Primary Care Provider Unavailabl e Severo Pressley MD Unavailable [phone] Encounter Details Date Type Department Care Team Description 02/27/2015 [facility] Medical Records [address] [place] [address] Poli Jones MD Social History Tobacco Use Types Packs/Day Years Used Date Smoking Tobacco: Never Smokeless Tobacco: Never Alcohol Use Standard Drinks/Week Comments No 0 (1 standard drink = 0.6 oz pur e alcohol) Sex Assigned at Date Recorded Not on file documented as of this encounter Plan of Treatment Not on file documented as of this encounter Procedures Procedure Name Priority Date/Time Associated Diagnosis Comments OUTSIDE VASCULAR STUDY Routine 02/27/2015 documented in this encounter Results * OUTSIDE VASCULAR STUDY (02/27/2015) Provider Default CARDIOLOGY documented in this encounter Visit Diagnoses Not on filedocumented in this encounter Care Teams Digital Content Specialist Relationship Specialty Start Date End Date Name, MD Braydon PCP - General 09/15/09 08/24/15 Savannah Meraz MD [address] [place] [address] PCP - General Internal Medicine 08/25/15 10/04/15 [facility], Pcp [address] [place] [address] PCP - General Internal Medicine 10/05/15 05/27/16 Braydon Owusu MD [address] [place] [address] PCP - General 05/28/16 02/07/21 [facility], Pcp [address] [place] [address] PCP - General Internal Medicine 02/08/21 02/15/21 Braydon Owusu MD [address] [place] [address] PCP - General Internal Medicine 02/16/21 Severo Pressley MD [address] [place] [address] [place] [address] Vice Squad Police Officer Cardiovascular Disease 02/16/21 documented as of this encounter
--- OUTSIDE RECORDS SUMMARY | 2025-04-05 14:16 | XMS_ITS | Encounter Summary ---
Author Organization [facility] Address [address] [place] [address] Care Team Providers Care Medical Laboratory Technicians Name Role Phone Name, Braydon COLE Primary Care Provider Unavailelza e Savannah Meraz MD Primary Care Provider [phone] Community, Pcp Primary Care Provider Unavailabl e Name, Braydon COLE Primary Care Provider Unavailabl e Community, Pcp Primary Care Provider Unavailabl e Name, Braydon COLE Primary Care Provider Unavailabl e Severo Pressley MD Unavailable [phone] Encounter Details Date Type Department Care Team Description 02/28/2015 [facility] Medical Records [address] [place] [address] Romulo Gilbert MD Social History Tobacco Use Types Packs/Day [...] on filedocumented in this encounter Care Teams Medical Laboratory Technicians Relationship Specialty Start Date End Date Francoise, MD Braydon PCP - General 09/15/09 08/24/15 Savannah Meraz MD [address] [place] [address] PCP - General Internal Medicine 08/25/15 10/04/15 [facility], Pcp [address] [place] [address] PCP - General Internal Medicine 10/05/15 05/27/16 Braydon Owusu MD [address] [place] [address] PCP - General 05/28/16 02/07/21 [facility], Pcp [address] [place] [address] PCP - General Internal Medicine 02/08/21 02/15/21 Name, MD Braydon [address] [place] [address] PCP - General Internal Medicine 02/16/21 Severo Pressley MD [address] [place] [address] [place] [address] Building Equipment Inspector Cardiovascular Disease 02/16/21 documented as of this encounter
--- OUTSIDE RECORDS SUMMARY | 2025-04-05 14:16 | XMS_ITS | Encounter Summary ---
Author Organization [facility] Address [address] [place] [address] Care Team Providers Care Cost Consultant Name Role Phone Name, Braydon COLE Primary Care Provider Unavailelza e Savannah Meraz MD Primary Care Provider [phone] Community, Pcp Primary Care Provider Unavailabl e Name, Braydon COLE Primary Care Provider Unavailabl e Community, Pcp Primary Care Provider Unavailabl e Name, Braydon COLE Primary Care Provider Unavailabl e Severo Pressley MD Unavailable [phone] Encounter Details Date Type Department Care Team Description 12/22/2011 Hospital Medical Records [address] [place] [address] Jeff Banks MD Social History Tobacco Use Types Packs/Day [...] on filedocumented in this encounter Care Teams Cost Consultant Relationship Specialty Start Date End Date Francoise, MD Braydon PCP - General 09/15/09 08/24/15 Savannah Meraz MD [address] [place], [place] [phone] PCP - General Internal Medicine 08/25/15 10/04/15 [facility], Pcp [address] [place] [address] PCP - General Internal Medicine 10/05/15 05/27/16 Braydon Owusu MD [address] [place] [address] PCP - General 05/28/16 02/07/21 [facility], Pcp [address] [place] [address] PCP - General Internal Medicine 02/08/21 02/15/21 Name, MD Braydon [address] [place] [address] PCP - General Internal Medicine 02/16/21 Severo Pressley MD [address] [place] [address] [place] [address] Ged Preparation Teacher Cardiovascular Disease 02/16/21 documented as of this encounter
--- OUTSIDE RECORDS SUMMARY | 2025-04-05 14:16 | XMS_ITS | Clinical Summary ---
Author Organization [employer] [facility] Address [address] [facility] 7t [place] [address] Care Team Providers Care Shell Mold Bonder Name Role Phone Name, Braydon COLE Primary Care Provider [phone] Allergies Active Allergy Reactions Criticality Noted Date Comments Penicillins Anaphylaxis,Swelling High 12/07/2009 Medications OXcarbazepine (Trileptal) 600 MG tablet TAKE 1 TABLET TWICE A DAY BY MOUTH FOR 90 DAYS 3 Active Diclofenac Sodium 1 % gel USE ONCE A DAY ON THE AFFECTED HAND 100 g 1 3 Active aspirin 81 MG EC tabletIndication s:Transient Ischemic Attacks Take 81 mg by mouth Once per day. Active fluticasone (Flonase) 50 MCG/ACT nasal spray SPRAY 1 SPRAY INTO EACH NOSTRIL LOS MCGUIRE 48 mL 5 Active cetirizine (ZyrTEC) 10 MG tablet Take 1 tablet (10 mg) by mouth if needed each day for rhinitis. 30 tablet 3 5 10/07/19 26 Active guaiFENesin (Mucinex) 600 MG 12 hr tablet Take 2 tablets (1,200 mg) by mouth if needed in the morning and at bedtime for cough or congestion. Do not crush, chew, or split. 30 tablet 5 10/07/19 26 Active atorvastatin (Lipitor) 40 MG tabletIndication s:High cholesterol TOME HALIE TABLETA TODOS LOS MCGUIRE 90 tablet 3 5 Active omeprazole (PriLOSEC) [address] capsuleIndicatio ns:Heartburn TOME 1 CAPSULA POR VIA ORAL 30 MINUTES TO 1 HOUR BEFORE A MEAL 90 capsule 1 5 Active amLODIPine (Norvasc) 10 MG tabletIndication s:Hypertension, unspecified type TAKE 1 TABLET BY MOUTH EVERY MORNING 90 tablet 1 5 Active albuterol 108 (90 Base) MCG/ACT inhaler INHALE DANDO 2 SOPLIDOS CADA 4 HORAS CUANDO SEA NECESARIO PARA LA FALTA DE RESPIRACION/LA SIBILANCIA 18 g 5 Active cyanocobalamin (Vitamin B-12) 1000 MCG tablet TOME 1 TABLETA POR VIA ORAL TODOS LOS MCGUIRE 90 tablet 1 5 Active finasteride (Proscar) 5 MG tabletIndication s:Benign prostatic hyperplasia, unspecified whether lower urinary tract symptoms present TAKE 1 TABLET BY MOUTH EVERY DAY 90 tablet 1 5 Active tamsulosin (Flomax) 0.4 MG 24 hr capsuleIndicatio ns:Benign prostatic hyperplasia with nocturia TAKE 2 CAPSULES BY MOUTH AT BEDTIME 180 capsule 5 Active hydroCHLOROthiaz demian 12.5 MG tabletIndication s:Hypertension, unspecified type TAKE 1 TABLET BY MOUTH EVERY DAY 90 tablet 1 5 Active Active Problems Problem Noted Date Diagnosed Date [...] Encounters Date Type Department Care Team Description 02/24/2025 Refill [facility] MEDICINE [address] [place] [address] Name, MD Braydon Hypertension, unspecified type 01/10/2025 Refill [facility] MEDICINE [address] [place] [address] Name, MD Braydon Benign prostatic hyperplasia with nocturia from Last 3 Months Immunizations Immunization Administration Dates Next Due Influenza High-dose Quadriva [...] 78 11/12/2024 3:45 PM EDT Temperature 36.7 C (98 F) 11/12/2024 3:45 PM EDT Respiratory Rate 12 [...] 2011 SDOH Screening 02/08/2024 02/07/2023 COVID-19 Vaccine ( season) 2024 06/25/2022, 06/25/2021, 10/25/2020 Influenza Vaccine (#1) 2025 3, 06/18/2022, 06/25/2021, Additional history exists Depression Screening 11/12/2025 11/12/2024, 04/04/20 25 Tobacco Screening 11/12/2025 11/12/2024 Lipid Panel 03/16/2029 [...] Procedure Name Priority Date/Time Associated Diagnosis Comments LIPID PANEL, STANDARD Routine 03/16/2024 10:14 AM EDT Essential hypertension On statin therapy from Last 3 Months or Most Recently Relevant to Health Maintenance Results * Lipid Panel, Standard (03/16/2024 10:14 AM EDT) Triglycerides 58 <150 mg/dL [facility] Comment:Desirable Triglyceri de: less than 150 mg/dLBorderline High Triglyceride 150-199 mg/dLHigh Triglyceride: 200-499 mg/dLVery High Triglyceride: greater than or equal to 5OO mg/dL Cholesterol 114 <200 mg/dL [facility] Comment:Desirable Cholestero l: less than 200 mg/dLBorderline High Cholesterol: 200-239 mg/dLHigh Cholesterol: greater than 239 mg/dL LDL Cholesterol Calculated 43 <100 mg/dL [facility] Comment:Desirable LDL: less than 100 mg/dLNear Optimal/Above Optimal LDL: 110- 129 mg/dLBorderline High LDL: 130-159 mg/dLHigh LDL: 160-189 mg/dLVery High LDL: greater than or equal to 190 mg/dL HDL Cholesterol 60 >40 mg/dL [facility] Comment:Desirable HDL: great er than 40 mg/dL Note: This HDL assay may give artificially low results in patients with liver disease. Blood Venous blood specimen / Unknown 03/16/2024 10:14 AM EDT 03/16/2024 11:14 AM EDT us Braydon Name LAB BLOOD ORDERABLES Final Resul t [facility] [address] [place] [phone] from Last 3 Months or Most Recently Relevant to Health Maintenance Insurance ELISEO NAVARRETE [id number] Care Teams Shell Mold Bonder Relationship Specialty Start Date End Date Name, MD Braydon [address] [place] [address] PCP - General Family Medicine 08/11/18
--- OUTSIDE RECORDS SUMMARY | 2025-04-05 14:16 | XMS_ITS | Encounter Summary ---
Author Organization [facility] Address [address] [place] [address] Care Team Providers Care Title Search Manager Name Role Phone Community, Pcp Primary Care Provider Unavailabl e Name, Braydon COLE Primary Care Provider Unavailabl e Community, Pcp Primary Care Provider Unavailabl e Name, Braydon COLE Primary Care Provider Unavailabl e Severo Pressley MD Unavailable [phone] Reason for Visit * Reason Comments E-prescribe Rx Request Encounter Details Date Type Department Care Team Description 10/05/2015 Refill Adult Medicine [address] [address] Tahira Kaufman PA-C [address] [place] [address] E-prescribe Rx Request Social History Tobacco Use Types Packs/Day Years Used Date Smoking Tobacco: Never Smokeless Tobacco: Never Alcohol Use Standard Drinks/Week Comments No 0 (1 standard drink = 0.6 oz pur e alcohol) Sex Assigned at Date Recorded Not on file documented as of this encounter Miscellaneous Notes * Telephone Encounter - Sri Rangel - 10/05/2015 10:58 AM EST Changed pcp ok to delet request * Telephone Encounter - Ashley Bermeo M.A. - 10/05/2015 10:40 AM EST Spoke with the pt, he has followed Dr. Owusu and saw him at the [facility] on 10.02.2015 Please update pts pcp as he will no longer come to [facility]. * Telephone Encounter - Savannah Meraz MD - 10/05/2015 10:38 AM EST He needs follow up appt scheduled before will refill * Telephone Encounter - Sri Rangel - 10/05/2015 9:59 AM EST Patient would like script to be: E-PRESCRIBED/FAXED TO PHARMACY WHEN WAS THE PATIENT'S LAST APPOINTMENT IN ADULT MEDICINE? 06/30/15 WHEN WAS THE LAST TIME THE PATIENT SAW THEIR PCP? Does patient have an upcoming appointment? No-unable to reach left [facility] to call for appointment due to refill request. Appt due with Dr. Meraz (THE MEDICATION REQUESTED IS ON THE MED LIST ABOVE) All of the medications requested were on the CURRENT MEDS list Did you check the Pharmacy information above?: YES Patient wants: 30 -day supply Is this a mail order prescription request ? NO Patients current insurance carrier is: Payor: [employer] FFS / Plan: [employer] CARE PLUS PLAN / Product Type: MEDICAID RISK documented in this encounter Plan of Treatment Not on file documented as of this encounter Visit Diagnoses Not on filedocumented in this encounter Care Teams Title Search Manager Relationship Specialty Start Date End Date Community, Pcp PCP - General Internal Medicine 10/05/15 05/27/16 Braydon Owusu MD PCP - General 05/28/16 02/07/21 [facility], Pcp PCP - General Internal Medicine 02/08/21 02/15/21 Name, MD Braydon PCP - General Internal Medicine 02/16/21 Severo Pressley MD [address] [place] [address] [place] [address] Adoption Counselor Cardiovascular Disease 02/16/21 documented as of this encounter
--- OUTSIDE RECORDS SUMMARY | 2025-04-05 14:16 | XMS_ITS | Encounter Summary ---
Author Organization [employer] Address [address] [facility] 7t [place] [address] Care Team Providers Care Strapper Operator Name Role Phone Name, Braydon COLE Primary Care Provider [phone] Reason for Visit * Reason Comments Med Refill Encounter Details Date Type Department Care Team ([facility] st Contact Info) Description 01/02/2025 Refill [facility] [address] [place], [place] [phone] Lily Watt DO [address] [place], [place] [phone] Social History Tobacco Use Types Packs/Day Years [...] documented as of this encounter Care Teams Strapper Operator Relationship Specialty Start Date End Date Name, MD Braydon [address] [place] [address] PCP - General Family Medicine 08/11/18 documented as of this encounter
--- OUTSIDE RECORDS SUMMARY | 2025-04-05 14:16 | XMS_ITS | Encounter Summary ---
Author Organization [facility] Address [address] [facility] 7t [place] [address] Care Team Providers Care Community Health Advocate Name Role Phone Name, Braydon COLE Primary Care Provider [phone] Encounter Details Date Type Department Care Team (Late st Contact Info) Description 09/04/2022 Orders Only [facility] MEDICINE [address] [place], [place] [phone] Xiomara Young LPN Social History Tobacco Use [...] on filedocumented in this encounter Care Teams Community Health Advocate Relationship Specialty Start Date End Date Name, MD Braydon [address] [place] [address] PCP - General Family Medicine 08/11/18 documented as of this encounter
--- OUTSIDE RECORDS SUMMARY | 2025-04-05 14:16 | XMS_ITS | Clinical Summary ---
Author Organization [facility] Address [address] [place] [address] Care Team Providers Care Package Center Supervisor Name Role Phone Name, Braydon COLE Primary Care Provider Severo Blevins MD Unavailable [phone] Allergies Active Allergy Reactions Severity Noted Date Comments Penicillins Swelling/Edema 12/07/2009 Medications Medication Sig Dispensed Refills Start Date End Date Status acetaminophen (TYLENOL) 325 MG tablet Take 650 mg by mouth every 4 hours. 0 Active aspirin 81 MG chewable tablet Take 81 mg by mouth daily. 0 Active atorvastatin (LIPITOR) 40 MG tablet Take 40 mg by mouth at bedtime. 0 Active cyanocobalamin 1000 MCG/ML injection Inject 100 mcg into the muscle. 0 Active metoprolol (LOPRESSOR) 25 MG tablet Take 12.5 mg by mouth 2 times daily. 0 Active oxcarbazepine (TRILEPTAL) 300 MG tablet Take 2 Tablets by mouth 2 times daily. 0 Active tamsulosin (FLOMAX) 0.4 MG 24 hr capsule Take 0.4 mg by mouth daily. Take 30 mins after same meal every day. 0 Active amlodipine (NORVASC) 10 MG tablet Take 10 mg by mouth daily. 0 Active hydrochlorothiazide (HYDRODIURIL) 12.5 MG tablet Take 12.5 mg by mouth daily. 0 Active Omeprazole 20 MG Tablet Delayed Release Dispersible Take by mouth daily. 0 Active vitamin B-12 (CYANOCOBALAMIN) 1000 MCG tablet Take 1,000 mcg by mouth daily. 0 Active Active Problems Problem Noted Date Dyslipidemia 02/15/2021 Last Assessment & Plan: The patient has a history of hyperlipidemia. Recent lipid panel showed adequate cholesterol control. We will continue his current therapy with atorvastatin. Essential hypertension 02/15/2021 Last Assessment & Plan: The patient has a history of arterial hypertension. The patient's blood pressure today was noted to be well controlled. We'll continue the current antihypertensive medication regimen. CAD (coronary artery disease) 02/15/2021 Last Assessment & Plan: The patient was [...] leads) I will order a stress echocardiogram. History of pernicious anemia 03/07/2015 Overview: Component Latest Ref Rng 03/03/2015 11:56 AM INTRINSIC FACTOR ANTIBODY 0.0-1.1 AU/mL 7.1 (A) Seizure disorder 03/03/2015 Chest pain 08/30/2014 Vitamin B12 deficiency 12/26/2011 Allergic rhinitis 12/07/2009 Immunizations Name Administration Dates Next Due Influenza (> 6 Months) 05/25/2015,06/29/2012, Tdap 12/25/2010 Family History Medical History Relation Name Comments Cataract Mother Blindness Negative Hx Glaucoma Negative Hx Macular Degeneration Negative Hx Strabismus Negative Hx Relation Name Status Comments Brother 1 Alive Brother 2 Alive Daughter 1 Alive Daughter 2 Alive Father liver CA and al coholism Mother sinusitis Sister 1 MD Sister 2 Alive Sister 3 Alive Sister 4 Alive Son 1 Alive Son 2 Alive Social History Tobacco Use Types Packs/Day Years Used Date Smoking Tobacco: Never Smokeless Tobacco: Never Alcohol Use Standard Drinks/Week Comments No 0 (1 standard drink = 0.6 oz pur e alcohol) Sex Assigned at Date Recorded Not on file Last Filed Vital Signs Vital Sign Reading Time Taken Comments Blood Pressure 136/80 02/16/2021 12:59 PM EDT Pulse 66 02/16/2021 12:59 PM EDT Temperature 36.3 C (97.3 F) 08/30/2015 11:30 AM EST Respiratory Rate 16 07/18/2015 1:54 PM EST Oxygen Saturation 97% 02/16/2021 12:59 PM EDT Inhaled Oxygen Concentration - - Weight 79.4 kg (175 lb) 02/16/2021 12:59 PM EDT Height 167.6 cm (5' 6 ) 02/16/2021 12:59 PM EDT Body Mass Index 28.25 02/16/2021 12:59 PM EDT Plan of Treatment Health Maintenance Due Date Last Done Comments Covid-19 Vaccine (#1) 06/11/1951 SHINGLES VACCINE (1 of 2) 12/09/2001 PNEUMOCOCCAL VACCINE (1 - PCV) 12/09/2016 CHOLESTEROL SCREENING 03/24/2019 03/24/2014, 011, 04/30/2010 COLON CANCER SCREENING 06/14/2020 06/14/2010 DTAP/TDAP/TD (2 - Td or Tdap) 12/25/2020 12/25/2010 BMI CHECK/ADVISE 08/11/2024 DEPRESSION SCREENING/FOLLOWUP 08/11/2024 INFLUENZA (#1) 2025 05/25/2015, 06/29/2012, HEPATITIS C SCREENING Completed 05/26/2015, 014 Care Teams Package Center Supervisor Relationship Specialty Start Date End Date Name, MD Braydon PCP - General Internal Medicine 02/16/21 Severo Pressley MD [address] [place] [address] [place] [address] Glass Carrier Cardiovascular Disease 02/16/21
--- OUTSIDE RECORDS SUMMARY | 2025-04-05 14:16 | XMS_ITS | Encounter Summary ---
Author Organization [facility] Address [address] [place] [address] Care Team Providers Care Printed Circuit Boards Pinner Name Role Phone Name, Braydon COLE Primary Care Provider Severo Blevins MD Unavailable [phone] Encounter Details Date Type Department Care Team Description 02/16/2021 Release of Information Medical Records [address] [place] [id number] [facility] Social History Tobacco Use Types Packs/Day Years [...] on filedocumented in this encounter Care Teams Printed Circuit Boards Pinner Relationship Specialty Start Date End Date Name, MD Braydon PCP - General Internal Medicine 02/16/21 Severo Pressley MD [address] [place] [address] [place] [address] Cloth Printer Helper Cardiovascular Disease 02/16/21 documented as of this encounter
--- OUTSIDE RECORDS SUMMARY | 2025-04-05 14:16 | XMS_ITS | Encounter Summary ---
Author Organization [facility] Address [address] [place] [address] Care Team Providers Care Emt/Dispatcher Name Role Phone Name, Braydon COLE Primary Care Provider Unavailabl e Tyson, Pcp Primary Care Provider Unavailabl e Francoise, Braydon COLE Primary Care Provider Unavailabl e Severo Pressley MD Unavailable [phone] Encounter Details Date Type Department Care Team Description 01/27/2021 SCAN Medical Records [address] [place] [address] Brandon Paredes PA-C Social History Tobacco Use Types Packs/Day Years [...] Associated Diagnosis Comments OUTSIDE VASCULAR STUDY Routine 01/27/2021 OUTSIDE LAB Routine 01/27/2021 OUTSIDE LAB Routine 01/27/2021 documented in this encounter Results * OUTSIDE LAB (01/27/2021) Provider Abstract LAB * OUTSIDE LAB (01/27/2021) Provider Abstract LAB * OUTSIDE VASCULAR STUDY (01/27/2021) Provider Abstract CARDIOLOGY documented in this encounter Visit Diagnoses Not on filedocumented in this encounter Care Teams Emt/Dispatcher Relationship Specialty Start Date End Date Braydon Owusu MD PCP - General 05/28/16 02/07/21 Community, Pcp PCP - General Internal Medicine 02/08/21 02/15/21 Braydon Owusu MD PCP - General Internal Medicine 02/16/21 Severo Pressley MD [address] [place] [address] [place] [address] Insulating Machine Operator Cardiovascular Disease 02/16/21 documented as of this encounter
--- OUTSIDE RECORDS SUMMARY | 2025-04-05 14:16 | XMS_ITS | Encounter Summary ---
Author Organization [employer] [facility] Address [address] [facility] 7t [place] [address] Care Team Providers Care Soil Chemist Name Role Phone Name, Braydon COLE Primary Care Provider [phone] Encounter Details Date Type Department Care Team (Late st Contact Info) Description 10/07/2022 Orders Only [facility] MEDICINE [address] [place], [place] [id number] Xiomara Young LPN Social History Tobacco Use [...] on filedocumented in this encounter Care Teams Soil Chemist Relationship Specialty Start Date End Date Name, MD Braydon [address] [place] [address] PCP - General Family Medicine 08/11/18 documented as of this encounter
--- OUTSIDE RECORDS SUMMARY | 2025-04-05 14:16 | XMS_ITS | Encounter Summary ---
Author Organization [facility] Address [address] [facility] 7t [place] [address] Care Team Providers Care Stylist Assistant Name Role Phone Name, Braydon COLE Primary Care Provider Encounter Details Date Type Department Care Team (Latest Contact Info) Description 08/06/2021 Abstract [facility] CONVERSIONS Dental, Provider, DDS Social History Tobacco [...] on filedocumented in this encounter Care Teams Stylist Assistant Relationship Specialty Start Date End Date Name, MD Braydon [address] [place] [address] PCP - General Family Medicine 08/11/18 documented as of this encounter
--- OUTSIDE RECORDS SUMMARY | 2025-04-05 14:16 | XMS_ITS | Encounter Summary ---
Author Organization [facility] Address [address] [place] [address] Care Team Providers Care Legal Adviser Name Role Phone Name, Braydon COLE Primary Care Provider Unavailabl e Tyson, Pcp Primary Care Provider Unavailabl e Name, Braydon COLE Primary Care Provider Unavailabl e Severo Pressley MD Unavailable [phone] Encounter Details Date Type Department Care Team Description 10/16/2020 Hospital Medical Records [address] [place], [place] [id number] [place] [address] Social History Tobacco Use Types Packs/Day Years [...] Name Priority Date/Time Associated Diagnosis Comments OUTSIDE PLAIN FILM Routine 10/17/2020 OUTSIDE LAB Routine 10/17/2020 OUTSIDE EKG Routine 10/16/2020 documented in this encounter Results * OUTSIDE PLAIN FILM (10/17/2020) Provider Abstract RADIOLOGY * OUTSIDE LAB (10/17/2020) Provider Abstract LAB * OUTSIDE EKG (10/16/2020) Provider Abstract CARDIOLOGY documented in this encounter Visit Diagnoses Not on filedocumented in this encounter Care Teams Legal Adviser Relationship Specialty Start Date End Date Braydon Owusu MD PCP - General 05/28/16 02/07/21 Community, Pcp PCP - General Internal Medicine 02/08/21 02/15/21 Braydon Owusu MD PCP - General Internal Medicine 02/16/21 Severo Pressley MD [address] [place] [address] [place] [id number] Paint Booth Operator Cardiovascular Disease 02/16/21 documented as of this encounter
--- OUTSIDE RECORDS SUMMARY | 2025-04-05 14:16 | XMS_ITS | Encounter Summary ---
Author Organization [facility] Address [address] [facility] 7t [place] [address] Care Team Providers Care Machinist Class B Name Role Phone Name, Braydon COLE Primary Care Provider Encounter Details Date Type Department Care Team (Latest Contact Info) Description 04/02/2019 Abstract [facility] CONVERSIONS Dental, Provider, DDS Social History Tobacco [...] on filedocumented in this encounter Care Teams Machinist Class B Relationship Specialty Start Date End Date Name, MD Braydon [address] [place] [address] PCP - General Family Medicine 08/11/18 documented as of this encounter
--- OUTSIDE RECORDS SUMMARY | 2025-04-05 14:16 | XMS_ITS | Encounter Summary ---
Author Organization [facility] Address [address] [place] [address] Care Team Providers Care Scale Shooter Name Role Phone Name, Braydon COLE Primary Care Provider Unavailelza e Savannah Meraz MD Primary Care Provider [phone] Community, Pcp Primary Care Provider Unavailabl e Name, Braydon COLE Primary Care Provider Unavailabl e Community, Pcp Primary Care Provider Unavailabl e Name, Braydon COLE Primary Care Provider Unavailabl e Severo Pressley MD Unavailable [phone] Encounter Details Date Type Department Care Team Description 02/24/2015 Hospital Medical Records [address] [place] [address] Myke Briggs MD Social History Tobacco Use Types Packs/Day [...] on filedocumented in this encounter Care Teams Scale Shooter Relationship Specialty Start Date End Date Name, MD Braydon PCP - General 09/15/09 08/24/15 Savannah Meraz MD [address] [place] [address] PCP - General Internal Medicine 08/25/15 10/04/15 [facility], Pcp [address] [place] [address] PCP - General Internal Medicine 10/05/15 05/27/16 Braydon Owusu MD [address] [place] [address] PCP - General 05/28/16 02/07/21 Community, Pcp [address] [place] [address] PCP - General Internal Medicine 02/08/21 02/15/21 Name, MD Braydon [address] [place] [address] PCP - General Internal Medicine 02/16/21 Severo Pressley MD [address] [place] [address] [place] [address] Log Haul Operator Cardiovascular Disease 02/16/21 documented as of this encounter
--- OUTSIDE RECORDS SUMMARY | 2025-04-05 14:16 | XMS_ITS | Encounter Summary ---
Author Organization [facility] Address [address] [place] [address] Care Team Providers Care Garment Cutter Name Role Phone Name, Braydon COLE Primary Care Provider Unavailabl e Community, Pcp Primary Care Provider Unavailabl e Name, Braydon COLE Primary Care Provider Unavailabl e Severo Pressley MD Unavailable [phone] Encounter Details Date Type Department Care Team Description 07/01/2017 Meat Hostess Report Medical Records [address] [place] [address] Vivien Kwan Social History Tobacco Use Types Packs/Day Years [...] Name Priority Date/Time Associated Diagnosis Comments OUTSIDE EKG Routine 07/01/2017 documented in this encounter Results * OUTSIDE EKG (07/01/2017) Provider Default CARDIOLOGY documented in this encounter Visit Diagnoses Not on filedocumented in this encounter Care Teams Garment Cutter Relationship Specialty Start Date End Date Braydon Owusu MD PCP - General 05/28/16 02/07/21 Community, Pcp PCP - General Internal Medicine 02/08/21 02/15/21 Braydon Owusu MD PCP - General Internal Medicine 02/16/21 Severo Pressley MD [address] [place] [address] [place] [address] Aircraft Communicator Cardiovascular Disease 02/16/21 documented as of this encounter
--- OUTSIDE RECORDS SUMMARY | 2025-04-05 14:16 | XMS_ITS | Encounter Summary ---
Author Organization [facility] Address [address] [place] [address] Care Team Providers Care High School Guidance Counselor Name Role Phone Name, Braydon COLE Primary Care Provider Unavailabl e Community, Pcp Primary Care Provider Unavailabl e Name, Braydon COLE Primary Care Provider Unavailabl e Severo Pressley MD Unavailable [phone] Encounter Details Date Type Department Care Team Description 01/22/2021 Screw Machine Set Up Operator Tool Report Medical Records [address] [place] [address] Akua Pacheco NP Social History Tobacco Use Types Packs/Day Years [...] on filedocumented in this encounter Care Teams High School Guidance Counselor Relationship Specialty Start Date End Date Braydon Owusu MD PCP - General 05/28/16 02/07/21 Community, Pcp PCP - General Internal Medicine 02/08/21 02/15/21 Braydon Owusu MD PCP - General Internal Medicine 02/16/21 Severo Pressley MD [address] [place] [address] [place] [address] Medicaid Business Analyst Cardiovascular Disease 02/16/21 documented as of this encounter
--- OUTSIDE RECORDS SUMMARY | 2025-04-05 14:16 | XMS_ITS | Encounter Summary ---
Author Organization [facility] Address [address] [place] [address] Care Team Providers Care Pulley Mortiser Operator Name Role Phone Name, Braydon COLE Primary Care Provider Unavailabl e Savannah Meraz MD Primary Care Provider [phone] Community, Pcp Primary Care Provider Unavailabl e Name, Braydon COLE Primary Care Provider Unavailabl e Community, Pcp Primary Care Provider Unavailabl e Name, Braydon COLE Primary Care Provider Unavailabl e Severo Pressley MD Unavailable [phone] Reason for Referral * Specialist (Urgent) - Authorized/Booked Specialty Diagnoses / Procedures Referred By Fan lima Referred To Contact Rheumatology Procedures REFERRAL TO RHEUMATOLOGY Aide Galloway PA-C [address] [place] [address] Rheum/[facility] [address] [place] [address] Referral ID Status Reason Start Date Expiration Date V isits Requested Visits Authorized [id number] Authorized/B ooked 03/17/2015 03/16/2016 1 1 Reason for Visit * Reason Onset Date Comments REFERRAL 03/17/2015 Encounter Details Date Type Department Care Team Description 03/17/2015 Telephone Orthopedics-[address] [address] Julius Bolanos PA REFERRAL Social History Tobacco Use Types Packs/Day Years Used Date Smoking Tobacco: Never Smokeless Tobacco: Never Alcohol Use Standard Drinks/Week Comments No 0 (1 standard drink = 0.6 oz pur e alcohol) Sex Assigned at Date Recorded Not on file documented as of this encounter Miscellaneous Notes * Telephone Encounter - Aide Galloway PA-C - 03/17/2015 10:24 AM EDT I will send to rheum as I believe he could benefit from joint aspiration. * Telephone Encounter - Elizabeth Chapa - 03/17/2015 9:45 AM EDT Patient was referred for: orthopedics. Reason for referral: knee pain and swelling Has patient had surgery for this problem: No Priority: Within 1 week Mr Bolanos's next opening is 04/10/15. Can patient wait till then or should this be referred outside. Thank You, Sandra in Specialties documented in this encounter Plan of Treatment Not on file documented as of this encounter Visit Diagnoses Not on filedocumented in this encounter Care Teams Pulley Mortiser Operator Relationship Specialty Start Date End Date Francoise, MD Braydon PCP - General 09/15/09 08/24/15 Savannah Meraz MD [address] [place] [address] PCP - General Internal Medicine 08/25/15 10/04/15 [facility], Pcp [address] [place] [address] PCP - General Internal Medicine 10/05/15 05/27/16 Braydon Owusu MD [address] [place] [address] PCP - General 05/28/16 02/07/21 [facility], Pcp [address] [place] [address] PCP - General Internal Medicine 02/08/21 02/15/21 Braydon Owusu MD [address] [place] [address] PCP - General Internal Medicine 02/16/21 Severo Pressley MD [address] [place] [address] [place] [address] Instructional Developer Cardiovascular Disease 02/16/21 documented as of this encounter
--- OUTSIDE RECORDS SUMMARY | 2025-04-05 14:16 | XMS_ITS | Encounter Summary ---
Author Organization [employer] Address [address] [facility] 7t [place] [address] Care Team Providers Care Bid Clerk Name Role Phone Name, Braydon COLE Primary Care Provider [phone] Encounter Details Date Type Department Care Team ([facility] st Contact Info) Description 09/09/2022 Orders Only [facility] [address] [place] [address] Lily Barber LPN Social History Tobacco Use [...] on filedocumented in this encounter Care Teams Bid Clerk Relationship Specialty Start Date End Date Name, MD Braydon [address] [place] [address] PCP - General Family Medicine 08/11/18 documented as of this encounter
== END 2025-04-05 13:24 | disposition home or self-care (01) ==
LOC: HO.US 13:23
PROVIDERS: PCP Internal Medicine Geriatric Medicine; Visit Provider Nurse Practitioner Family
DX: R39.14 Feeling of incomplete bladder emptying (principal); N40.1 Benign prostatic hyperplasia with lower urinary tract symptoms; R39.11 Hesitancy of micturition
CPT/HCPCS: 76770

== ENCOUNTER → 2025-04-05 13:25 | Outpatient (BNV) | payer MEDICARE, SELFPAY | PROVIDERS: PCP Internal Medicine Geriatric Medicine; Visit Provider Radiology Diagnostic Radiology | DX: N20.0 Calculus of kidney (principal) | CPT/HCPCS: 76770 ==

== ENCOUNTER 2025-04-20 15:10 | Outpatient (AMB) | payer MEDICARE, SELFPAY ==
--- NOTE | 2025-04-20 15:14 | MHC.OFFVIS ---
Intake Visit Reasons: /US Intake Note: Patient is present for / Urology Medication:TAMSULOSIN,FINASTERIDE Antibiotic Allergy:PENICILLINS Blood Thinner:NONE Drawing Kiln Supervisor Required: No Drawing Kiln Supervisor Services: Drawing Kiln Supervisor Present Drawing Kiln Supervisor Name: Bhavik Tran Allergies Penicillins Allergy (Intermediate, Verified 04/20/25 15:47) Swelling Medication List - Last Reconciled 04/20/25 by Tamiko Goldstein, PUBLIC OPINION SURVEY TAKER- amlodipine 10 mg PO DAILY atorvastatin 40 mg PO DAILY doxycycline hyclate 100 mg PO BID 14 days finasteride 5 mg PO DAILY hydrochlorothiazide 12.5 mg PO DAILY omeprazole 20 mg PO DAILY tamsulosin 0.8 mg PO DAILY HPI Comments Details: Bipin is a very pleasant 74-year-old Citizen [place]-speaking male patient of Dr. Owusu who was accompanied by his significant other at today's office visit. He has a past medical history of hypertension, hyperlipidemia, and GERD. He presents to the office today for follow-up. Of note, patient was seen approximately 3 months ago as a new patient for ongoing lower urinary tract symptoms he has been experiencing at which time a retroperitoneal ultrasound was ordered for further assessment evaluation. These results reviewed with the patient and his today. 04/04 bilateral kidneys are normal in size and echotexture. No hydronephrosis. 6 mm nonobstructing left renal calculi. The bladder is fluid-filled. Trabeculated wall. Postvoid bladder volume 110 mL. Prostate measures approximately 24 mL. When asked he reports compliance with finasteride and Flomax as prescribed. He does feel urinary hesitancy and feeling of incomplete bladder emptying have improved however he continues to experience dysuria upon urination. PSAs are as follows: PSA 03/02 0.5, 12/03 0.9 We discussed potential causes of lower urinary tract symptoms patient is experiencing as well as further treatment options and risks and benefits of these treatment options. He otherwise denies incontinence, nocturia, hematuria, foul smelling urine, changes to urinary stream, flank pain, fever, and or chills. We discussed potential near future in office cystoscopy and or microgen for further assessment evaluation. All questions were answered. He otherwise offers no other issues or concerns at this time. [facility] Social History (Updated 03/26/23 @ 14:30 by KARRIE Leija) Alcohol intake: never Patient Tobacco Use Status: Never used Tobacco Current occupational status: disabled Current occupation: right hand dominant Review of Systems Const All systems reviewed & are unremarkable except as noted in HPI and below Physical Exam Const General: cooperative, healthy appearing, comfortable, no acute distress, well developed, alert and awake Orientation/consciousness: patient oriented x3 Limitations: language barrier HEENT Head: Yes normal to inspection, Yes normocephalic and Yes atraumatic Ears: hearing grossly normal bilaterally Eyes General: appearance normal, both eyes and all related structures Neck Neck: Yes normal visual inspection and Yes trachea midline Chest Chest palpation & inspection: normal inspection of the chest Resp Effort & Inspection: normal respiratory effort and able to speak in complete sentences Cardio Rate: regular rate GI Inspection: Yes normal to inspection General: Yes no CVA tenderness Back/Spine/Pelvis Back: no CVA tenderness Skin General skin exam: no rashes or lesions noted Neuro General: patient oriented x3 Extrem General: Yes normal to inspection Psych Appearance: grossly normal and well kempt Mental Status: mental status grossly normal Speech and movement: Normal speech and movement present and Clear speech present Affect: normal affect Attitude: cooperative Thought process: Normal thought process present Thought content: Normal thought content present Insight: Fair insight present (Psych) Judgement: Fair judgement present (Psych) Results AMB Urinalysis, Automated UA Leukoctes 0 Daniel/uL Last Edit by NGHIA Osborn on 04/20/25 15:54 UA Nitrite Negative Last Edit by NGHIA Osborn on 04/20/25 15:54 UA Urobilinogen 0.2 mg/dL Last Edit by Yolanda Webb CCM on 04/20/25 15:54 UA Protein 0 mg/dL Last Edit by Yolanda Webb CCM on 04/20/25 15:54 UA pH 6.0 Last Edit by NGHIA Osborn on 04/20/25 15:54 UA Blood 0 Cecilio/uL Last Edit by NGHIA Osborn on 04/20/25 15:54 UA Specific Mayo 1.015 Last Edit by NGHIA Osborn on 04/20/25 15:54 UA Ketone Negative Last Edit by Yolanda Webb CCM on 04/20/25 15:54 UA Bilirubin 0 mg/dL Last Edit by NGHIA Osborn on 04/20/25 15:54 UA Glucose 0 mg/dL Last Edit by NGHIA Osborn on 04/20/25 15:54 Results Reviewed Results Reviewed: Laboratory Last Values Urine pH (Auto) 6.0 04/20/25 15:53 Specific Mayo (Auto) 1.015 04/20/25 15:53 Urine Protein (Auto) 0 mg/dL 04/20/25 15:53 Glucose (UA)(Auto) 0 mg/dL 04/20/25 15:53 Urine Ketones (Auto) Negative 04/20/25 15:53 Urine Blood (Auto) 0 Cecilio/uL 04/20/25 15:53 Urine Nitrite (Auto) Negative 04/20/25 15:53 Urine Bilirubin (Auto) 0 mg/dL 04/20/25 15:53 Urine Urobilinogen (Auto) 0.2 mg/dL 04/20/25 15:53 Leukocyte Esterase (Auto) 0 Daniel/uL 04/20/25 15:53 Date of Service: 04/05/25 Procedure(s): US retroperitoneal comp FINDINGS: RIGHT KIDNEY: 10 x 6 x 6 cm (SAG x AP x TRV). Volume: 191 cc. Normal echotexture. Normal renal cortical thickness. No hydronephrosis. No gross solid or cystic lesion detected. LEFT KIDNEY: 11 x 5 x 4 cm (SAG x AP x TRV). Volume: 123 cc. Normal echotexture. Normal renal cortical thickness. No hydronephrosis. There is a 6 mm hyperechoic abnormality in the midportion. BLADDER: Fluid-filled. Trabeculated wall. Bilateral ureteral jets are demonstrated. Prevoid bladder volume is 251 mL. Postvoid bladder volume is 112 mL. Prostate gland measures 3.2 x 3.5 x 4 cm and volume 24 cc. Dystrophic calcifications in the prostate gland. IMPRESSION: 112 cc of retained urine in a post void image. Normal-sized prostate gland with volume 24 cc. No hydronephrosis. 6 mm nonobstructing nephrolithiasis, left kidney.. Assessment & Plan Assessment & Plan (1) Nephrolithiasis: Code(s): N20.0 - Calculus of kidney Category: Medical (2) Enlarged prostate: Code(s): N40.0 - Benign prostatic hyperplasia without lower urinary tract symptoms Category: Medical (3) Dysuria: Code(s): R30.0 - Dysuria Category: Medical (4) Urethritis: Code(s): N34.2 - Other urethritis Category: Medical Plan In office urinalysis results reviewed with the patient today; as noted above. Recent retroperitoneal ultrasound results with the patient today; as noted above. Continue Flomax and finasteride as prescribed. We did discussed potential causes of dysuria Start doxycycline as discussed and prescribed We did discussed potential near future microgen and or in office cystoscopy if symptoms persist and or worsen. All questions were answered. We also discussed potential causes of nephrolithiasis as well as further treatment options and risks and benefits of these treatment options; will continue with surveillance monitoring at this time. We did discussed the importance of adequate hydration relation to lower urinary tract symptoms, nephrolithiasis, as well as overall health and well-being. Follow-up in 1-2 months with [facility]; or sooner with any issues, concerns, and or questions. Orders: Orders AMB Urinalysis Automated Today Z13.9 - Encounter for screening, unspecified Medications: New doxycycline hyclate 100 mg PO BID 28 tabs 0RF 14 days N39.0 - Urinary tract infection, site not specified, N45.1 - Epididymitis Patient Instructions: The patient had an opportunity to ask questions regarding the treatment plan. All questions were answered. Physical exam, labs, and imaging were discussed and reviewed in detail. As well as risks, benefits, and discussion of treatment choices. No major barriers to understanding were identified. The patient expressed understanding and agreement with the above treatment plan. The patient was made aware they should contact our office by phone for worsening of their current condition, the appearance of new symptoms, or with any questions or concerns. Compliance is encouraged with any medications and follow up testing that is ordered. It is a privilege to be allowed the opportunity to participate in? your urological care.? Again, if you have any questions or concerns If you have any questions or concerns please do not hesitate to contact me. The office is [phone]. This note is constructed using voice recognition software. While every effort has been made to ensure accuracy call taker errors may have been included. Yours sincerely, [facility] Coding Level of Care Code Est Pt Level 4 (29680) Diagnoses Nephrolithiasis N20.0 Enlarged prostate N40.0 Dysuria R30.0 Urethritis N34.2
--- OUTSIDE RECORDS SUMMARY | 2025-04-20 18:15 | XMS_ITS | Clinical Summary ---
Author Organization [employer] Address [address] [place] [address] 7t [place] [address] Care Team Providers Care Topographical Engineer Name Role Phone Name, Braydon COLE Primary Care Provider [phone] Allergies Active Allergy Reactions Criticality Noted Date [...] LOS MCGUIRE 48 mL 08/23/19 25 Active cetirizine (ZyrTEC) 10 MG [...] MCGUIRE 90 tablet 3 10/14/19 25 Active albuterol 108 (90 Base) MCG/ACT inhaler INHALE DANDO 2 SOPLIDOS CADA 4 HORAS CUANDO SEA NECESARIO PARA LA FALTA DE RESPIRACION/LA SIBILANCIA 18 g 10/30/19 25 Active cyanocobalamin (Vitamin B-12) 1000 MCG tablet TOME 1 TABLETA POR VIA ORAL TODOS LOS MCGUIRE 90 tablet 1 11/02/19 25 Active finasteride (Proscar) 5 MG tabletIndicatio ns:Benign prostatic hyperplasia, unspecified whether lower urinary tract symptoms present TAKE 1 TABLET BY MOUTH EVERY DAY 90 tablet 1 11/18/19 25 Active hydroCHLOROthia zide 12.5 MG tabletIndicatio ns:Hypertension , unspecified type TAKE 1 TABLET BY MOUTH EVERY DAY 90 tablet 1 02/25/20 25 Active tamsulosin (Flomax) 0.4 MG 24 hr capsuleIndicati ons:Benign prostatic hyperplasia with nocturia TOME 2 CAPSULAS POR VIA ORAL AL ACOSTARSE 180 capsule 04/12/20 25 Active omeprazole (PriLOSEC) [address] capsuleIndicati ons:Heartburn TOME 1 CAPSULA POR VIA ORAL 30 MINUTES TO 1 HOUR BEFORE A MEAL 90 capsule 1 04/13/20 25 Active amLODIPine (Norvasc) 10 MG tabletIndicatio ns:Hypertension , unspecified type TOME 1 TABLETA POR VIA ORAL TODOS [place] 90 tablet 1 04/13/20 25 Active omeprazole (PriLOSEC) [address] capsuleIndicati ons:Heartburn TOME 1 CAPSULA POR VIA ORAL 30 MINUTES TO 1 HOUR BEFORE A MEAL 90 capsule 1 10/14/19 25 025 Discontinued amLODIPine (Norvasc) 10 MG tabletIndicatio ns:Hypertension , unspecified type TAKE 1 TABLET BY MOUTH EVERY MORNING 90 tablet 1 10/21/19 25 025 Discontinued tamsulosin (Flomax) 0.4 MG 24 hr capsuleIndicati ons:Benign prostatic hyperplasia with nocturia TAKE 2 CAPSULES BY MOUTH AT BEDTIME 180 capsule 01/12/20 25 025 Discontinued Active Problems Problem Noted Date Diagnosed Date [...] Encounters Date Type Department Care Team Description 04/13/2025 Refill [facility] [address] [place] [address] Name, MD Braydon Heartburn; Hypertension, unspecified type 04/09/2025 Refill [facility] [address] [place], [place] [phone] Name, MD Braydon Benign prostatic hyperplasia with nocturia 04/05/2025 Orders Only [facility] External Provider, [employer] 02/24/2025 Refill [facility] [address] [place], [place] [phone] Name, MD Braydon Hypertension, unspecified type from Last 3 Months Immunizations Immunization Administration [...] Screening 02/08/2024 02/07/2023 COVID-19 Vaccine (4 - 2024- season) 2025 06/25/2022, 06/25/2021, 10/25/2020 Influenza Vaccine (#1) 2025 , 06/18/2022, 06/25/2021, Additional history exists Depression Screening 11/12/2025 11/12/2024, 11/13/19 25 Tobacco Screening 11/12/2025 11/12/2024 Lipid Panel 03/16/2029 03/16/2024, 07/, 06/25/2022, Additional history exists DTaP/Tdap/Td Vaccines (4 [...] Procedure Name Priority Date/Time Associated Diagnosis Comments US RETROPERITONEAL COMPLETE Routine 04/05/2025 1:58 PM EDT LIPID PANEL, STANDARD Routine 03/16/2024 10:14 AM EDT Essential hypertension On statin therapy from Last 3 Months or Most Recently Relevant to Health Maintenance Results * US Retroperitoneal Complete (04/05/2025 1:58 PM EDT) Anatomical Region Laterality Modality Ultrasound 04/05/2025 1:58 PM EDT Narrative 04/05/2025 2:28 PM EDT [place] [id number] Ultrasound Report Signed Patient: Bipin Devine MR#: [id number] : 1950 Acct:[id number] Age/Sex: 74 / M ADM Date: 04/05/25 Loc: HO.US Attending Dr: Tamiko SANTANA Ordering Physician: Tamiko Goldstein Date of Service: 04/05/25 Procedure(s): US retroperitoneal comp Accession Number(s): [id number] cc: Tamiko Goldstein; Name,Braydon COLE EXAMINATION: US RETROPERITONEAL COMPLETE (RENAL) CLINICAL INFORMATION: Filling of incomplete bladder emptying.. COMPARISON: None available. TECHNIQUE: Real-time imaging of the kidneys and bladder. FINDINGS: RIGHT KIDNEY: 10 x 6 x 6 cm (SAG x AP x TRV). Volume: 191 cc. Normal echotexture. Normal renal cortical thickness. No hydronephrosis. No gross solid or cystic lesion detected. LEFT KIDNEY: 11 x 5 x 4 cm (SAG x AP x TRV). Volume: 123 cc. Normal echotexture. Normal renal cortical thickness. No hydronephrosis. There is a 6 mm hyperechoic abnormality in the midportion. BLADDER: Fluid-filled. Trabeculated wall. Bilateral ureteral jets are demonstrated. Prevoid bladder volume is 251 mL. Postvoid bladder volume is 112 mL. Prostate gland measures 3.2 x 3.5 x 4 cm and volume 24 cc. Dystrophic calcifications in the prostate gland. US/US retroperitoneal comp IMPRESSION: 112 cc of retained urine in a post void image. Normal-sized prostate gland with volume 24 cc. No hydronephrosis. 6 mm nonobstructing nephrolithiasis, left kidney.. Electronically signed by: Jaquan Mcguire MD 04/05/2025 02:25 PM EDT RP Dictated By: Jaquan Kendrick MD Signed By: <Electronically signed by Jaquan Amezquita MD in OV> 04/05/25 1425 DD/ 1358 TD/TT: 04/05/25 1412 Assistant Tennis Coach: Procedure Note Donotuseinterpreter, Image - 04/05/2025 [place] [address] Ultrasound Report Signed Patient: Bipin DevineMR#: [id number] : 1950cct:[id number] Age/Sex: 74 / MADM Date: 04/05/25 Loc: HO.US Attending Dr: Tamiko SANTANA Ordering Physician: Tamiko Goldstein Date of Service: 04/05/25 Procedure(s): US retroperitoneal comp Accession Number(s): [id number] cc: Tamiko Goldstein; Name,Braydon COLE EXAMINATION: US RETROPERITONEAL COMPLETE (RENAL) CLINICAL INFORMATION: Filling of incomplete bladder emptying.. COMPARISON: None available. TECHNIQUE: Real-time imaging of the kidneys and bladder. FINDINGS: RIGHT KIDNEY: 10 x 6 x 6 cm (SAG x AP x TRV). Volume: 191 cc. Normal echotexture. Normal renal cortical thickness. No hydronephrosis. No gross solid or cystic lesion detected. LEFT KIDNEY: 11 x 5 x 4 cm (SAG x AP x TRV). Volume: 123 cc. Normal echotexture. Normal renal cortical thickness. No hydronephrosis. There is a 6 mm hyperechoic abnormality in the midportion. BLADDER: Fluid-filled. Trabeculated wall. Bilateral ureteral jets are demonstrated. Prevoid bladder volume is 251 mL. Postvoid bladder volume is 112 mL. Prostate gland measures 3.2 x 3.5 x 4 cm and volume 24 cc. Dystrophic calcifications in the prostate gland. US/US retroperitoneal comp IMPRESSION: 112 cc of retained urine in a post void image. Normal-sized prostate gland with volume 24 cc. No hydronephrosis. 6 mm nonobstructing nephrolithiasis, left kidney.. Electronically signed by: Jaquan Mcguire MD 04/05/2025 02:25 PM EDT RP Dictated By: Jaquan Kendrick MD Signed By: <Electronically signed by Jaquan Amezquita MDin OV> 04/05/25 1425 DD/ 1358 TD/TT: 04/05/25 1412 Assistant Tennis Coach: us [employer] External Provider IMG US PROCEDURES Final Result * Lipid Panel, Standard (03/16/2024 10:14 AM EDT) Triglycerides 58 <150 mg/dL [facility] Comment:Desirable Triglyceri de: less than 150 mg/dLBorderline High Triglyceride 150-199 mg/dLHigh Triglyceride: 200-499 mg/dLVery High Triglyceride: greater than or equal to 5OO mg/dL Cholesterol 114 <200 mg/dL [facility] Comment:Desirable Cholestero l: less than 200 mg/dLBorderline High Cholesterol: 200-239 mg/dLHigh Cholesterol: greater than 239 mg/dL LDL Cholesterol Calculated 43 <100 mg/dL [facility] Comment:Desirable LDL: less than 100 mg/dLNear Optimal/Above Optimal LDL: 110- 129 mg/dLBorderline High LDL: 130-159 mg/dLHigh LDL: 160-189 mg/dLVery High LDL: greater than or equal to 190 mg/dL HDL Cholesterol 60 >40 mg/dL [facility] Comment:Desirable HDL: great er than 40 mg/dL Note: This HDL assay may give artificially low results in patients with liver disease. Blood Venous blood specimen / Unknown 03/16/2024 10:14 AM EDT 03/16/2024 11:14 AM EDT us Braydon Name LAB BLOOD ORDERABLES Final Resul t [facility] [address] [place] [address] [phone] from Last 3 Months or Most Recently Relevant to Health Maintenance Insurance [facility] [employer] (HMO D-SNP) [place] [id number] Care Teams Topographical Engineer Relationship Specialty Start Date End Date Name, MD Braydon [address] [place] [id number] PCP - General Family Medicine 08/11/18
--- OUTSIDE RECORDS SUMMARY | 2025-04-20 18:15 | XMS_ITS | Encounter Summary ---
Author Organization [employer] [facility] Address [address] [facility] 7t [place] [address] Care Team Providers Care Putty Tinter Maker Name Role Phone Name, Braydon COLE Primary Care Provider Encounter Details Date Type Department Care Team (Latest Contact Info) Description 08/06/2021 Abstract [facility] CONVERSIONS Dental, Provider, DDS Social History [...] on filedocumented in this encounter Care Teams Putty Tinter Maker Relationship Specialty Start Date End Date Name, MD Braydon [address] [place] [address] PCP - General Family Medicine 08/11/18 documented as of this encounter
--- OUTSIDE RECORDS SUMMARY | 2025-04-20 18:15 | XMS_ITS | Encounter Summary ---
Author Organization [employer] [facility] Address [address] [facility] 7t [place] [address] Care Team Providers Care Fiberglass Insulation Installer Name Role Phone Name, Braydon COLE Primary Care Provider [phone] Encounter Details Date Type Department Care Team (Latest Contact Info) Description 04/02/2019 Abstract [facility] CONVERSIONS Dental, Provider, DDS Social History Tobacco [...] on filedocumented in this encounter Care Teams Fiberglass Insulation Installer Relationship Specialty Start Date End Date Name, MD Braydon [address] [place] [address] PCP - General Family Medicine 08/11/18 documented as of this encounter
--- OUTSIDE RECORDS SUMMARY | 2025-04-20 18:15 | XMS_ITS | Encounter Summary ---
Author Organization [facility] Address [address] [facility] 7t [place] [address] Care Team Providers Care Food Service Director Name Role Phone Name, Braydon COLE Primary Care Provider [phone] Encounter Details Date Type Department Care Team (Late st Contact Info) Description 11/11/2022 Orders Only [facility] [address] [place], [place] [phone] Xiomara Young LPN Social History Tobacco Use [...] on filedocumented in this encounter Care Teams Food Service Director Relationship Specialty Start Date End Date Name, MD Braydon [address] [place] [address] PCP - General Family Medicine 08/11/18 documented as of this encounter
--- OUTSIDE RECORDS SUMMARY | 2025-04-20 18:15 | XMS_ITS | Encounter Summary ---
Author Organization [employer] [facility] Address [address] [facility] 7t [place] [address] Care Team Providers Care Aircraft Mechanic Electrical And Radio Name Role Phone Name, Braydon COLE Primary Care Provider [phone] Encounter Details Date Type Department Care Team (Late st Contact Info) Description 01/02/2023 Orders Only [facility] [address] [place], [place] [phone] Xiomara Young LPN Social History Tobacco Use [...] on filedocumented in this encounter Care Teams Aircraft Mechanic Electrical And Radio Relationship Specialty Start Date End Date Name, MD Braydon [address] [place] [address] PCP - General Family Medicine 08/11/18 documented as of this encounter
--- OUTSIDE RECORDS SUMMARY | 2025-04-20 18:15 | XMS_ITS | Encounter Summary ---
Author Organization [employer] Address [address] [facility] 7t [place] [address] Care Team Providers Care Exterminator Helper Name Role Phone Name, Braydon COLE Primary Care Provider [phone] Encounter Details Date Type Department Care Team ([facility] st Contact Info) Description 09/09/2022 Orders Only [facility] [address] [place] [address] Lily Barber LPN Social History Tobacco Use [...] on filedocumented in this encounter Care Teams Exterminator Helper Relationship Specialty Start Date End Date Name, MD Braydon [address] [place] [address] PCP - General Family Medicine 08/11/18 documented as of this encounter
--- OUTSIDE RECORDS SUMMARY | 2025-04-20 18:15 | XMS_ITS | Clinical Summary ---
Author Organization [facility] Address [address] [place] [address] Phone Care Team Providers Care Sheeting Puller Name Role Phone Name, Braydon COLE Primary Care Provider [phone] Allergies Active Allergy Reactions Criticality Noted Date [...] PROCEDURE: HISTORICAL HERNIA REPAIR/ING COLONOSCOPY 06/14/2010 PROCEDURE: NC COLONOSCOPY FLX DX W/COLLJ SPEC WHEN PFRMD OTHER SURGICAL HISTORY PROCEDURE: HISTORY OTHER; COMMENT: Laparoscopic cholecystectomy Medical History Medical History Date Comments CVA (cerebrovascular acciden t) ([facility] V24, [facility] V28) DX:CVA (cerebrovascular acci dent) ([facility]) History of BPH DX:History of BP H Seizure disorder ([facility] V2 4, [facility] V28) DX:Seizure disorder ([facility]) Seasonal allergic rhinitis, unspecified trigger DX:Seasonal allergic [...] and al coholism Mother sinusitis Sister 1 [place] Sister 2 Alive Sister 3 Alive Sister [...] Influencers of Health Screening 07/14/2022 Depression Screening 08/11/2024 COVID-19 Vaccine ( season) 2025 06/25/2022, 06/25/2021, 10/25/2020 Influenza Vaccine [...] lt [facility] [address] [place] [address], from Last 3 Months or Most Recently Relevant to Health Maintenance Insurance [employer] Member Subscriber Plan / Payer (Ef fective 2024-Present) Name:Alcides Gold Bipin Relation to Subscriber:Self Name:Bipin Deivne Payer ID:[id number] Group ID:Not on file Type:Not on file Address: [place] [address] [place] [id number] Care Teams Sheeting Puller Relationship Specialty Start Date End Date Name, MD Braydon [address] [place] [address] PCP - General Internal Medicine 05/28/16
--- OUTSIDE RECORDS SUMMARY | 2025-04-20 18:15 | XMS_ITS | Encounter Summary ---
Author Organization [employer] Address [address] [facility] 7t [place] [address] Care Team Providers Care Machine Engineer Name Role Phone Name, Braydon CLOE Primary Care Provider [phone] Encounter Details Date Type Department Care Team ([facility] st Contact Info) Description 02/17/2024 Orders Only [facility] [address] [place] [address] Name, MD Braydon [address] [place], [place] [phone] Social History Tobacco Use Types Packs/Day Years [...] as of this encounter Care Teams Machine Engineer Relationship Specialty Start Date End Date Name, MD Braydon [address] [place] [address] PCP - General Family Medicine 08/11/18 documented as of this encounter
--- OUTSIDE RECORDS SUMMARY | 2025-04-20 18:15 | XMS_ITS | Encounter Summary ---
Author Organization [employer] Address [address] [facility] 7t [place] [address] Care Team Providers Care Sales Solutions Representative Name Role Phone Name, Braydon COLE Primary Care Provider [phone] Encounter Details Date Type Department Care Team ([facility] st Contact Info) Description 10/14/2022 Orders Only [facility] [address] [place] [address] Lily aBrber LPN Social History Tobacco Use Types Packs/Day [...] on filedocumented in this encounter Care Teams Sales Solutions Representative Relationship Specialty Start Date End Date Name, MD Braydon [address] [place] [address] PCP - General Family Medicine 08/11/18 documented as of this encounter
--- OUTSIDE RECORDS SUMMARY | 2025-04-20 18:15 | XMS_ITS | Encounter Summary ---
Author Organization [employer] [facility] Address [address] [facility] 7t [place] [address] Care Team Providers Care Tile Grader Name Role Phone Name, Braydon COLE Primary Care Provider [phone] Encounter Details Date Type Department Care Team (Late st Contact Info) Description 09/04/2022 Orders Only [facility] [address] [place], [place] [phone] Xiomara Young LPN Social History Tobacco Use [...] on filedocumented in this encounter Care Teams Tile Grader Relationship Specialty Start Date End Date Name, MD Braydon [address] [place] [address] PCP - General Family Medicine 08/11/18 documented as of this encounter
--- OUTSIDE RECORDS SUMMARY | 2025-04-20 18:15 | XMS_ITS | Encounter Summary ---
Author Organization [employer] Address [address] [facility] 7t [place] [address] Care Team Providers Care Blackjack Pit Boss Name Role Phone Name, Braydon COLE Primary Care Provider [phone] Reason for Visit * Reason Comments Med Refill Encounter Details Date Type Department Care Team ([facility] st Contact Info) Description 01/02/2025 Refill [facility] [address] [place], [place] [phone] Lily Watt DO [address] [place], [place] [phone] Social History Tobacco Use Types Packs/Day Years [...] documented as of this encounter Care Teams Blackjack Pit Boss Relationship Specialty Start Date End Date Name, MD Braydon [address] [place] [address] PCP - General Family Medicine 08/11/18 documented as of this encounter
--- OUTSIDE RECORDS SUMMARY | 2025-04-20 18:15 | XMS_ITS | Encounter Summary ---
Author Organization [employer] [facility] Address [address] [facility] 7t [place] [address] Care Team Providers Care Application Integration Architect Name Role Phone Name, Braydon COLE Primary Care Provider [phone] Encounter Details Date Type Department Care Team (Late st Contact Info) Description 10/07/2022 Orders Only [facility] [address] [place], [place] [phone] Xiomara Young LPN Social History Tobacco Use [...] on filedocumented in this encounter Care Teams Application Integration Architect Relationship Specialty Start Date End Date Name, MD Braydon [address] [place] [address] PCP - General Family Medicine 08/11/18 documented as of this encounter
== END 2025-04-20 15:47 | disposition home or self-care (01) ==
LOC: HO.HUSH 15:11
PROVIDERS: PCP Internal Medicine Geriatric Medicine; Visit Provider Nurse Practitioner Family
DX: N20.0 Calculus of kidney (principal); N40.0 Benign prostatic hyperplasia without lower urinary tract symptoms; R30.0 Dysuria; N34.2 Other urethritis; Z13.9 Encounter for screening, unspecified
CPT/HCPCS: 99214

== ENCOUNTER → 2025-04-20 15:10 | Outpatient (BNVA) | payer MEDICARE, SELFPAY | PROVIDERS: PCP Internal Medicine Geriatric Medicine; Visit Provider Nurse Practitioner Family | DX: N20.0 Calculus of kidney (principal); N40.0 Benign prostatic hyperplasia without lower urinary tract symptoms; R30.0 Dysuria; N34.2 Other urethritis | CPT/HCPCS: 81003; 99212 ==

== ENCOUNTER 2025-06-29 15:02 | Outpatient (AMB) | payer MEDICARE, SELFPAY ==
--- NOTE | 2025-06-29 15:02 | MHC.OFFVIS ---
Intake Visit Reasons: 2m/PVR Intake Note: Patient is present for 2mo follow up patient states that he is doing well on Doxycycline although he is having trouble voiding and still does feel dysuria Urology Medication:TAMSULOSIN,FINASTERIDE,DOXYCYCLINE Antibiotic Allergy:PENICILLINS Blood Thinner:NONE PVR:0 MLS Health Services Administrator Required: Yes Health Services Administrator Services: Health Services Administrator Present Health Services Administrator Name: Yoel [id number] Accompanied by: Self / Same As Patient Allergies Penicillins Allergy (Intermediate, Verified 04/20/25 15:47) Swelling Medication List - Last Reconciled 06/29/25 by Tamiko Goldstein [facility]- amlodipine 10 mg PO DAILY atorvastatin 40 mg PO DAILY finasteride 5 mg PO DAILY hydrochlorothiazide 12.5 mg PO DAILY omeprazole 20 mg PO DAILY tamsulosin 0.8 mg PO DAILY HPI Comments Details: Bipin is a very pleasant 74-year-old Burmese-speaking male patient of Dr. Owusu. He has a past medical history of hypertension, hyperlipidemia, and GERD. He presents to the office today for follow-up of his lower urinary tract symptoms. In discussion with the patient today he reports to be doing and feeling well. He reports having completed doxycycline as prescribed during last office visit and feels dysuria has significantly improved. He currently denies any bothersome urinary issues or concerns. In office urinalysis results reviewed with the patient today. PVR 0 mL. Previous workup has included a retroperitoneal ultrasound 04/04 bilateral kidneys are normal in size and echotexture. No hydronephrosis. 6 mm nonobstructing left renal calculi. The bladder is fluid-filled. Trabeculated wall. Postvoid bladder volume 110 mL. Prostate measures approximately 24 mL. When asked he reports compliance with finasteride and Flomax as prescribed. PSAs are as follows: PSA 03/02 0.5, 12/03 0.9 We discussed potential causes of lower urinary tract symptoms patient was experiencing. He otherwise denies incontinence, nocturia, hematuria, foul smelling urine, changes to urinary stream, flank pain, fever, and or chills. We discussed potential near future in office cystoscopy and or microgen for further assessment evaluation if symptoms reoccur. We did discussed the importance of adequate hydration relation to nephrolithiasis. All questions were answered. He otherwise offers no other issues or concerns at this time. [facility] Social History (Updated 03/26/23 @ 14:30 by Penny Luna [facility]) Alcohol intake: never Patient Tobacco Use Status: Never used Tobacco Current occupational status: disabled Current occupation: right hand dominant Review of Systems Const All systems reviewed & are unremarkable except as noted in HPI and below Physical Exam Const General: cooperative, healthy appearing, comfortable, no acute distress, well developed, alert and awake Orientation/consciousness: patient oriented x3 Limitations: language barrier HEENT Head: Yes normal to inspection, Yes normocephalic and Yes atraumatic Ears: hearing grossly normal bilaterally Eyes General: appearance normal, both eyes and all related structures Neck Neck: Yes normal visual inspection and Yes trachea midline Chest Chest palpation & inspection: normal inspection of the chest Resp Effort & Inspection: normal respiratory effort and able to speak in complete sentences Cardio Rate: regular rate GI Inspection: Yes normal to inspection General: Yes no CVA tenderness Back/Spine/Pelvis Back: no CVA tenderness Skin General skin exam: no rashes or lesions noted Neuro General: patient oriented x3 Extrem General: Yes normal to inspection Psych Appearance: grossly normal and well kempt Mental Status: mental status grossly normal Speech and movement: Normal speech and movement present and Clear speech present Affect: normal affect Attitude: cooperative Thought process: Normal thought process present Thought content: Normal thought content present Insight: Fair insight present (Psych) Judgement: Fair judgement present (Psych) Office Procedures Post Void Residual Post Residual Void Post Void Residual (PVR): 0 78106-[id number] Void Residual by ultrasound Results AMB Urinalysis, Automated UA Leukoctes 0 Daniel/uL Last Edit by Jolie Barrera [facility] on 06/29/25 15:11 UA Nitrite Negative Last Edit by Jolie Barrera [facility] on 06/29/25 15:11 UA Urobilinogen 0.2 mg/dL Last Edit by Jolieradha Barrera [facility] on 06/29/25 15:11 UA Protein 0 mg/dL Last Edit by Jolie Barrera [facility] on 06/29/25 15:11 UA pH 6.0 Last Edit by Jolie Barrera [facility] on 06/29/25 15:11 UA Blood 0 Cecilio/uL Last Edit by Joliepatrizia Barrera [facility] on 06/29/25 15:11 UA Specific [place] 1.015 Last Edit by Jolie Barrera [facility] on 06/29/25 15:11 UA Ketone Negative Last Edit by Jolie Barrera [facility] on 06/29/25 15:11 UA Bilirubin 0 mg/dL Last Edit by Jolie Barrera [facility] on 06/29/25 15:11 UA Glucose 0 mg/dL Last Edit by Jolie Barrera [facility] on 06/29/25 15:11 Results Reviewed Results Reviewed: Laboratory Last Values Urine pH (Auto) 6.0 06/29/25 15:11 Specific [place] (Auto) 1.015 06/29/25 15:11 Urine Protein (Auto) 0 mg/dL 06/29/25 15:11 Glucose (UA)(Auto) 0 mg/dL 06/29/25 15:11 Urine Ketones (Auto) Negative 06/29/25 15:11 Urine Blood (Auto) 0 Cecilio/uL 06/29/25 15:11 Urine Nitrite (Auto) Negative 06/29/25 15:11 Urine Bilirubin (Auto) 0 mg/dL 06/29/25 15:11 Urine Urobilinogen (Auto) 0.2 mg/dL 06/29/25 15:11 Leukocyte Esterase (Auto) 0 Daniel/uL 06/29/25 15:11 Assessment & Plan Assessment & Plan (1) Nephrolithiasis: Code(s): N20.0 - Calculus of kidney Category: Medical (2) Urinary hesitancy due to benign prostatic hyperplasia: Code(s): N40.1 - Benign prostatic hyperplasia with lower urinary tract symptoms; R39.11 - Hesitancy of micturition Category: Medical (3) Feeling of incomplete bladder emptying: Code(s): R39.14 - Feeling of incomplete bladder emptying Category: Medical (4) Dysuria: Code(s): R30.0 - Dysuria Category: Medical (5) Enlarged prostate: Code(s): N40.0 - Benign prostatic hyperplasia without lower urinary tract symptoms Category: Medical Plan In office urinalysis results with the patient today; as noted above. PVR 0 mL He currently denies any bothersome urinary issues or concerns. He reports be happy with current voiding parameters. Continue Flomax and finasteride as discussed and prescribed. Will continue with surveillance monitoring. We discussed the importance of adequate hydration relation to nephrolithiasis We discussed adding 1 oz of lemon juice to water daily. Will obtain PSA in 6 months. Will obtain renal ultrasound in 6 months. Follow-up in 6 months with PSA, imaging, and PVR; or sooner with any issues, concerns, and or questions. Orders: Orders Prostate Specific Antigen 6 Months N40.0 - Benign prostatic hyperplasia without lower urinary tract symptoms, N40.1 - Benign prostatic hyperplasia with lower urinary tract symptoms, R39.11 - Hesitancy of micturition US renal BI 6 Months N40.0 - Benign prostatic hyperplasia without lower urinary tract symptoms, N40.1 - Benign prostatic hyperplasia with lower urinary tract symptoms, R39.11 - Hesitancy of micturition Medications: Discontinued doxycycline hyclate Discontinued Reason: Patient Completed Course 100 mg PO BID 14 days 28 tabs 0RF N39.0 - Urinary tract infection, site not specified, N45.1 - Epididymitis Patient Instructions: The patient had an opportunity to ask questions regarding the treatment plan. All questions were answered. Physical exam, labs, and imaging were discussed and reviewed in detail. As well as risks, benefits, and discussion of treatment choices. No major barriers to understanding were identified. The patient expressed understanding and agreement with the above treatment plan. The patient was made aware they should contact our office by phone for worsening of their current condition, the appearance of new symptoms, or with any questions or concerns. Compliance is encouraged with any medications and follow up testing that is ordered. It is a privilege to be allowed the opportunity to participate in? your urological care.? Again, if you have any questions or concerns If you have any questions or concerns please do not hesitate to contact me. The office is [phone]. This note is constructed using voice recognition software. While every effort has been made to ensure accuracy database engineer errors may have been included. Yours sincerely, MAX Lucero Coding Level of Care Code Est Pt Level 3 (58052) Complex EM visit Add On G2211 Diagnoses Nephrolithiasis N20.0 Urinary hesitancy due to benign prostatic hyperplasia N40.1; R39.11 Feeling of incomplete bladder emptying R39.14 Dysuria R30.0 Enlarged prostate N40.0 CPT Codes Post Residual Void - PVR CPT Code: 28785-Xiyn Void Residual by ultrasound ([id number])
--- OUTSIDE RECORDS SUMMARY | 2025-06-30 03:38 | XMS_ITS | Encounter Summary ---
Author Organization [facility] [facility] Address [address] [place] [address] Care Team Providers Care Compliance Quality Performance Analyst Name Role Phone Name, Braydon COLE Primary Care Provider [phone] Encounter Details Date Type Department Care Team (Late st Contact Info) Description 01/02/2023 Orders Only [facility] [address] [place], [place] [id number] Xiomara Young LPN Social History Tobacco Use [...] on filedocumented in this encounter Care Teams Compliance Quality Performance Analyst Relationship Specialty Start Date End Date Name, MD Braydon [address] [place] [address] PCP - General Family Medicine 08/11/18 documented as of this encounter
--- OUTSIDE RECORDS SUMMARY | 2025-06-30 03:38 | XMS_ITS | Data Portability ---
Author Organization [facility] [employer] Address [address] [place] [id number] Care Team Providers Care Manager Cost Name Role Phone NAME, AC Referring Provider Unavailable NAME, AC Primary Care Provider Assessment Encounter Date Assessment Date Assessment LastModified by Organization Details LastModified Time 10/03/2022 10/03/2022 IMPRESSION --generalized seizure witnessed by Friday, February 04, 2021 after being off of his medication for reason of running out after evening , February 01, 2021. 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 Autoimmune etiology is [...] please continue to bring someone from your [employer] who can assist with Venezuelan translation Discussed with Dr. Inman, impression and plan developed with him. lissette Not available 04/08/2023 19:02:14 04/08/2023 04/08/2023 IMPRESSION --generalized seizure witnessed by Thursday, February 04, 2021 after being off of his medication for reason of running out after evening January. 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 Autoimmune etiology is [...] in management is indicated. PLAN Bipin Mcgrath April 08, 2023 To prevent seizures: CONTINUE Oxcarbazepine (brand name Trileptal) 300 mg tablet 2 tablets twice daily Follow-up in 6 months, please continue to bring someone from your [employer] who can assist with Venezuelan translation lissette Not available 04/08/2023 18:55:27 10/14/2023 10/14/2023 IMPRESSION --generalized seizure witnessed by Friday, February 04, 2021 after being off of his medication for reason of running out after evening , February 01, 2021. -- Previously seizure-free on oxcarbazepine 450 mg twice daily started in the context of a single event of abnormal movements out of sleep February 2015, witnessed by his , diagnosed as seizure at [facility], with nonspecific small foci of gadolinium uptake [...] accepts. He prefers a physical therapist in [place] where he lives. We will plan 6-month follow-up for the seizures, sooner if no improvement in the right shock like shoulder pain with physical therapy PLAN Bipin Mcgrath April 08, 2023 To prevent seizures: CONTINUE Oxcarbazepine (brand name Trileptal) 300 mg tablet 2 tablets twice daily For your sodium level on oxcarbazepine and BMP: Go to a [facility] laboratory Your friend, Shady has said he can bring you today. There is one nearby at the following address [address] [address] Office For the increasing episodes of shocklike pain in the right shoulder, now awakening you at night Start physical therapy [facility] [place] [address] [address], [place] [address] Ph. , Follow-up in 6 months, please continue to bring someone from your [employer]ain who can assist with Venezuelan translation lissette Not available 10/14/2023 21:12:05 04/14/2024 04/14/2024 IMPRESSION seizure disorder -- oxcarbazepine 450 mg twice daily started in the context of a single event of abnormal movements out of sleep February 2015, witnessed by his , diagnosed as seizure at [facility], with nonspecific small foci of gadolinium uptake of uncertain significance found on brain MRI during that hospitalization, with changing foci on repeat brain MRI May 29, 2015. --generalized seizure witnessed by Thursday, February 04, 2021 after being off of his medication for reason of running out after evening January, with [facility] restarting oxcarbazepine at higher dose, 600 [...] 2023 BMP normal including sodium 137 >>>>>>>>>>>>Septe mb2023 For seizure disorder, we will make no changes to oxcarbazepine. For the other issues, discussion is as given in the HPI. Sodium October 14, 2023 is normal h e does not seem to have [...] accepts. He prefers a physical therapist in [place] where he lives. PLAN Bipin Mcgrath April 14, 2024 To prevent seizures: CONTINUE Oxcarbazepine (brand name Trileptal) 300 mg tablet 2 tablets twice daily Follow-up in 11 months, please continue to bring someone from your [employer] who can assist with Venezuelan translation mikel Not available 04/14/2024 15:25:34 05/16/2025 05/16/2025 IMPRESSION seizure disorder -- oxcarbazepine 450 mg twice daily started in the context of a single event of abnormal movements out of sleep February 2015, witnessed by his , diagnosed as seizure at [facility], with nonspecific small foci of gadolinium uptake of uncertain significance found on brain MRI during that hospitalization, with changing foci on repeat brain MRI May 29, 2015. --generalized seizure witnessed by Friday, February 04, 2021 after being off of his medication for reason of running out after evening , February 01, 2021, with [facility] restarting oxcarbazepine at higher dose, 600 mg bid --April 14, 2024 oxcarbazepine 600 mg twice daily: No seizures or side effects; grinding teeth, biting lip, body or legs jumping. --May 16, 2025 no seizures, no oxcarbazepine 600 mg twice daily side effects. Still clenching teeth and biting lips. >>>>>>>>>>IN GENERAL: We will remember that oxcarbazepine 600 mg [...] 14, 2023 BMP normal including sodium 137 >>>>>>>>>>>>Octob er 2024 We agreed to make no changes in the oxcarbazepine. >>>>>>>>>>>>Septe mber 2023 For seizure disorder, we will make no changes to oxcarbazepine. For the other issues, discussion is as given in the HPI. Sodium October 14, 2023 is normal h e does not seem to have [...] accepts. He prefers a physical therapist in [place] where he lives. PLAN Bipin Mcgrath May 16, 2025 To prevent seizures: CONTINUE Oxcarbazepine (brand name Trileptal) 300 mg tablet 2 tablets twice daily Follow-up in 10months, please continue to bring someone from your [employer] who can assist with Venezuelan translation mikel Not available 05/16/2025 13:45:10 Plan of Treatment Reminders Order Date Submit Date Provider Last Modified By Organization Details Last Modified Time Details Appointments FOLLOW UP EXT 2025 02:30P Lexa Inman MD PhD Not available Not available Not available Lab BMP, serum or plasma - R94.4 2023 024 RL [facility] (Centralized Electronic Ordering - All Locations), Patient Can Go To The Location Of Their Choice, [id number] 10/15/2023 00:27:06 Referral physica l therapi st referra l - please eval and treat RUE radiati ng pain, worse at night and with activit y 2023 024 [email or web address] [facility], [address] [place] [address], [address], [place], [address], 12/18/2023 10:27:33 Procedures None recorde d. Surgeries None recorde d. Imaging None recorde d. Medication Orders oxcarba zepine 600 mg tablet 2024 025 [facility]/Pharmacy #[id number], [address] [place] [address], [address], 05/16/2025 13:25:37 oxcarba zepine 600 mg tablet 2023 024 [facility]/Pharmacy #[id number], [address] [place], [address], 04/14/2024 15:15:38 oxcarba zepine 600 mg tablet 2023 024 [facility]/Pharmacy #[id number], [address] [place], [address], 10/15/2023 18:53:50 oxcarba zepine 600 mg tablet 2022 023 [facility]/Pharmacy #[id number], [address] [place], [address], 04/08/2023 14:14:11 oxcarba zepine 600 mg tablet 2022 023 [facility]/Pharmacy #[id number], [address] [place], [address], 10/03/2022 12:37:21 Patient TargetsNo targets recorded. 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 Autoimmune etiology is [...] greater than 50% greater than 30 minutes mrossen Not available 05/16/2025 13:45:12 Reason for Referral Physical Therapist Referral for Cervical nerve root compression please eval and treat RUE radiating pain, worse at night and with activity Referring Physician: Sarah Madrid, Neurology, Encounter Date: 10/14/2023 Results Created Date Observation Date Name Description Value Unit Range Abnormal Flag Note LastModifiedBy Organization Detail LastModifiedTime 10/14/19 24 10/15/2023 BASIC METAB OLIC PANEL glucose 93 mg/dL (70-99 ) Not Available [facility] (Centralized Electronic Ordering - All Locations) Patient Can Go To The Location Of Their Choice, [id number] 10/15/2023 00:27:06 10/14/19 24 10/15/2023 BASIC METAB OLIC PANEL BUN 11 mg/dL [...] Go To The Location Of Their Choice, [id number] 10/15/2023 00:27:06 Result Notes None recorded. Procedures Surgical History Date Name Laterality Status Provider Name and Address Organization Details Recorded Time 05/16/2025 DATA REVIEW completed Brandon Inman MD [address] [place] [address] [place], [phone], [facility] 05/16/2025 13:17:36 04/14/2024 DATA REVIEW completed Brandon Inman MD [address] [place], [place] [address], [phone], [facility] 04/14/2024 14:54:48 10/14/2023 DATA REVIEW completed SARAH MADRID PA-C [address] [place] [address] [place], [phone], [facility] 10/14/2023 11:35:41 04/08/2023 DATA REVIEW completed SARAH MADRID PA-C [address] [place] [address] [place], [address], [facility] 04/08/2023 14:04:02 10/03/2022 DATA REVIEW completed SARAH MADRID PA-C [address] [place], [place] [address], [phone], [facility] 10/03/2022 13:57:10 01/10/2022 DATA REVIEW completed Brandon Inman MD [address] [place] [address] [place], [phone], [facility] 01/10/2022 12:37:24 02/08/2021 DATA REVIEW completed Brandon Inman MD [address] [place] [address] [place], [phone], [facility] 02/08/2021 12:41:08 Imaging Results None recorded. Procedure Notes None recorded. Medical Equipment None Reported. Medications Name Sig Start Date Stop Date Status Note LastModified by Organization Details LastModified Time amoxicillin 500 mg capsule TOME HALIE C PSULA CADA OCHO HORAS HASTA QUE SE TERMINE active Not Available Not Available No t Available atorvastati n 40 mg tablet TOME 1 TABLETA POR V A ORAL TODOS LOS D active Not Available Not Available No t Available doxycycline hyclate 100 mg capsule TAKE 1 CAPSULE ORALLY TWICE A DAY FOR 7 DAYS WITH AT LEAST 8OZ OF WATER, DON'T LIE DOWN FOR 30 MIN 05/08 completed Not Available Not Available Not Available albuterol sulfate 2.5 mg/3 mL (0.083 %) solution for nebulizatio n INHALE 3 ML BY NEBULIZAT ION EVERY 6 HOURS IF NEEDED FOR WHEEZING active Not Available Not Available No t Available cetirizine 10 mg tablet TAKE 1 TABLET (10 MG) BY MOUTH IF NEEDED EACH DAY FOR RHINITIS. active Not Available Not Available No t Available azithromyci n 250 mg tablet TOME 2 TABLETAS POR V A ORAL HOY, LUEGO TOME 1 TABLETA POR D A DIDIER 4 D active Not Available Not Available No t Available ibuprofen 800 mg tablet TAKE 1 TABLET BY MOUTH EVERY 8 HOURS NEEDED FOR PAIN active Not Available Not Available No t Available cyanocobala min (vit B-12) 1,000 mcg tablet TOME 1 TABLETA POR VIA ORAL TODOS LOS MCGUIRE active Not Available Not Available No t Available oxcarbazepi ne 300 mg tablet TOME DOS TABLETAS POR V A ORAL DOS VECES AL D A active Not Available Not Available No t Available acetaminoph en 500 mg tablet TOME HALIE TABLETA CADA SEIS HORAS CUANDO SEA NECESARIO PARA EL DOLOR active Not Available Not Available No t Available acetaminoph en ER 650 mg tablet,exte nded release TAKE 1 TABLET BY MOUTH EVERY 8 (EIGHT) HOURS IF NEEDED FOR MILD PAIN. DO NOT CRUSH, CHEW, OR SPLIT. active Not Available Not Available No t Available ketorolac 0.5 % eye drops PONGA HALIE GOTA EN LOS DOS OJOS DOS VECES AL D A active Not Available Not Available No t Available prednisolon e acetate 1 % eye drops,suspe nsion INSTILL 1 DROP INTO LASERED EYE SYED VECES AL D A FOR 5 DAYS FOLLOWING LASER active Not Available Not Available No t Available tamsulosin 0.4 mg capsule TOME 2 CAPSULAS POR VIA ORAL AL ACOSTARSE active Not Available Not Available No t Available carboxymeth ylcellulose sodium 0.5 % eye drops INSTILL 1 DROP EN LOS DOS OJOS DOS VECES AL D A active Not Available Not Available No t Available meclizine 25 mg tablet TOME HALIE TABLETA SYED VECES AL D A CUANDO SEA NECESARIO POR 10 D active Not Available Not Available No t Available amlodipine 10 mg tablet TOME 1 TABLETA POR VIA ORAL TODOS LOS MCGUIRE EN LA NICHOLSONANA active Not Available Not Available No t Available benzonatate 100 mg capsule TAKE 1 CAP BY MOUTH IF NEEDED IN MORNING, AT NOON, AND AT BEDTIME FOR COUGH X10 DAYS DONT CRUSH/KP W active Not Available Not Available No t Available doxycycline monohydrate 100 mg capsule TAKE 2 ( TWO) AT ONCE FIRST DAY THEN ON 1 CAPSULE DAILY UNTIL GONE active Not Available Not Available No t Available cephalexin 500 mg capsule active Not Available Not Available Not Available oseltamivir 75 mg capsule TOME 1 C PSULA POR V A ORAL DOS VECES AL D A POR 5 D active Not Available Not Available No t Available fluorometho lone 0.1 % eye drops,suspe nsion PONGA HALIE GOTA EN LOS DOS OJOS DOS VECES AL D A active Not Available Not Available No t Available omeprazole 20 mg capsule,del ayed release TOME 1 CAPSULA POR VIA ORAL 30 MINUTES TO 1 HOUR BEFORE A MEAL active Not Available Not Available No t Available oxcarbazepi ne 600 mg tablet Take 1 tablet twice a day by oral route for 90 days. 2024 active Not Available Not Available Not Avai lable loteprednol etabonate 0.5 % eye drops,suspe nsion PONGA HALIE GOTA EN LOS DOS OJOS DOS VECES AL D A active Not Available Not Available No t Available ibuprofen 600 mg tablet PLEASE SEE ATTACHED FOR DETAILED DIRECTION S active Not Available Not Available No t Available albuterol sulfate HFA 90 mcg/actuati on aerosol inhaler INHALE DANDO 2 SOPLIDOS CADA 4 HORAS CUANDO SEA NECESARIO PARA LA FALTA DE RESPIRACI ON/LA SIBILANCI A active Not Available Not Available No t Available fluticasone propionate 50 mcg/actuati on nasal spray,suspe nsion INSTILL 1 SPRAY INTO EACH NOSTRIL EVERY DAY active Not Available Not Available No t Available clotrimazol e 1 % topical cream PLEASE SEE ATTACHED FOR DETAILED DIRECTION S active Not Available Not Available No t Available doxycycline hyclate 100 mg tablet TOME 1 TABLETA POR V A ORAL DOS VECES AL D A POR 2 SEMANAS active Not Available Not Available No t Available finasteride 5 mg tablet TOME 1 TABLETA POR V A ORAL TODOS LOS D active Not Available Not Available No t Available cyclosporin e 0.05 % eye drops in a dropperette PONGA HALIE GOTA EN LOS DOS OJOS DOS VECES AL D A active Not Available Not Available No t Available Senna Plus 8.6 mg-50 mg tablet TOME DOS TABLETAS POR V A ORAL AL ACOSTARSE CUANDO SEA NECESARIO FOR CONSTIPAT ION FOR 10 DAYS active Not Available Not Available No t Available hydrochloro thiazide 12.5 mg tablet TOME 1 TABLETA POR V A ORAL TODOS LOS D active Not Available Not Available No t Available diclofenac 1 % topical gel USE ONCE A DAY ON THE AFFECTED HAND active Not Available Not Available No t Available Ilevro 0.3 % eye drops,suspe nsion active Not Available Not Available Not Available Vitals None Recorded Social History None recorded. Functional Status None recorded. Mental Status None recorded. Family History Nothing Reported. Medical History No medical history recorded. 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 [id number] Brandon Inman MD [facility] [address] [place] [address] [place] [address] 01/10/2022 12:12:01 01/10/2022 18:02:53 Generalized convulsive epilepsy 18692780 G40.309 [id number] SARAH MADRID PA-C [address] [place] [id number] 10/03/2022 11:13:08 10/17/2022 14:56:10 Generalized convulsive epilepsy 09708116 G40.309 [id number] SARAH MADRID PA-C [address] [place] [address] 04/08/2023 13:39:30 04/10/2023 16:18:36 Generalized convulsive epilepsy 47459645 G40.309 [id number] SARAH MADRID PA-C [facility] [address] [place] [address] [place] [id number] 10/14/2023 11:23:34 10/16/2023 08:31:12 Generalized convulsive epilepsy 80024010 G40.309 Blood chem istry outside reference range 166527992 R79.9 Cervical n erve root compression 49709792 M50.13 [id number] Brandon Inman MD [facility] [address] [place] [address] [place] [id number] 04/14/2024 14:05:34 04/14/2024 16:53:41 Generalized convulsive epilepsy 03091782 G40.309 [id number] Brandon Inman MD [facility] [address] [place] [address] [place] [id number] 05/16/2025 13:10:11 05/18/2025 13:27:27 Generalized convulsive epilepsy 75320668 G40.309 Health Concerns Section Related Observation LastModified by Organization Detai ls LastModified Time None Recorded Concern Status LastModified by Organization Details LastModified Time None Recorded Advance Directives Directive None Recorded Payers Insurance Date Sequence Insurance Name Policy Number Policy Mullins Covered Member ID Mullins Member ID Guarantor Name 05/16/2025 1 [facility] - DOS PRIOR TO 2022 - DUAL ELIGIBLE (MEDICARE REPLACEMENT/ADV ANTAGE - HMO) Bipin Mcgrath [id number] Bipin Mcgrath 05/16/2025 1 [facility] - DOS ON OR AFTER 2022 - MEDICARE [place]VANTAGE [place] (MEDICARE REPLACEMENT/ADV ANTAGE - PPO) Bipin Mcgrath [id number] Bipin Mcgrath Notes Date Note Type Note Provider Name and Address Organization Details Recorded Time 10/03/2022 text/html Follow up of generalized seizure witnessed by Friday, February 04, 2021 after being off of his medication for reason of running out after evening , February 01, 2021. Previously seizure-free on oxcarbazepine 450 mg twice daily started in the context of a single event of abnormal movements out of sleep February 2015, witnessed by his , diagnosed as seizure at [facility], with nonspecific small foci of gadolinium uptake of uncertain significance found on brain MRI during that hospitalization. 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 Since January 10 2022 neurology follow-up with [...] that seizure.) The increase was started by [facility] emergency room right after the seizure [...] team that attended to him during his [facility] hospitalization): In mid February 2015, he [...] he was told. He was taken to [facility]. 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 He reports that his mother never said he had anything other than a normal and delivery, with learning to walk and talk at the normal times. He went through normal schooling through high school. He has no history of brain infection. Among his close family members, his daughter has had seizures. SARAH MADRID PA-C [address] [place] [address] [place], [phone], [facility] 04/08/2023 19:02:19 04/08/2023 text/html Follow up of generalized seizure witnessed by Thursday, February 04, 2021 after being off of his medication for reason of running out after evening January. Previously seizure-free on oxcarbazepine 450 mg twice daily started in the context of a single event of abnormal movements out of sleep February 2015, witnessed by his , diagnosed as seizure at [facility], with nonspecific small foci of gadolinium uptake of uncertain significance found on brain MRI during that hospitalization. 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 Since October 03, 2022 neurology follow-up, he has been doing well, he reports no changes in his health, he has not had any medication changes. 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 He is tolerating his seizure medications without [...] visual changes and will be seeing his rate inserter. >>>>>>>>>>>>October 03, 2022Since January 10 2022 neurology [...] that seizure.) The increase was started by [facility] emergency room right after the seizure [...] team that attended to him during his [facility] hospitalization): In mid February 2015, he [...] he was told. He was taken to [facility]. 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 He reports that his mother never said he had anything other than a normal and delivery, with learning to walk and talk at the normal times. He went through normal schooling through high school. He has no history of brain infection. Among his close family members, his daughter has had seizures. Brandon Inman MD [address] [place] [address] [place], [phone], [facility] 04/10/2023 10:29:31 10/14/2023 text/html Follow up of generalized seizure witnessed by Friday, February 04, 2021 after being off of his medication for reason of running out after evening January. Previously seizure-free on oxcarbazepine 450 mg twice daily started in the context of a single event of abnormal movements out of sleep February 2015, witnessed by his , diagnosed as seizure at [facility], with nonspecific small foci of gadolinium uptake of uncertain significance found on brain MRI during that hospitalization. 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 >>>>>>>>>>>>October 14, 2023Since April 08, 2023 neurology [...] medication changes. 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 He is tolerating his seizure medications without [...] visual changes and will be seeing his rate inserter. >>>>>>>>>>>>October 03, 2022Since January 10 2022 neurology [...] that seizure.) The increase was started by [facility] emergency room right after the seizure [...] team that attended to him during his [facility] hospitalization): In mid February 2015, he [...] he was told. He was taken to [facility]. 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 He reports that his mother never said he had anything other than a normal and delivery, with learning to walk and talk at the normal times. He went through normal schooling through high school. He has no history of brain infection. Among his close family members, his daughter has had seizures. Brandon Inman MD [address] [place], [place] [address], [phone], [facility] 10/15/2023 18:54:20 04/14/2024 text/html Follow up of [...] by his , diagnosed as seizure at [facility], with nonspecific small foci of gadolinium uptake of uncertain significance found on brain MRI during that hospitalization. 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 >>>>>>>>>>>>Aprellen 2023Since October 14, 2023 Neurology follow-up encounter, [...] to his at sometimes he bites his lip h e finds out when he wakes [...] medication changes. 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 He is tolerating his seizure medications without [...] visual changes and will be seeing his rate inserter. >>>>>>>>>>>>October 03, 2022Since January 10 2022 neurology [...] that seizure.) The increase was started by [facility] emergency room right after the seizure [...] team that attended to him during his [facility] hospitalization): In mid February 2015, he [...] he was told. He was taken to [facility]. 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 He reports that his mother never said he had anything other than a normal and delivery, with learning to walk and talk at the normal times. He went through normal schooling through high school. He has no history of brain infection. Among his close family members, his daughter has had seizures. 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 >>>>>>>>>>>>May 16, 2025Since April 14, 2024 Neurology follow-up encounter, he again has had no seizures. He continues on oxcarbazepine 600 mg twice a day without side effects. His mood is good. He has had no new or changing medications with other healthcare providers.His only new medical condition is bilateral knee pain. I asked him to talk with primary care about that.He continues to clench his teeth and occasionally bite his lip when he sleeps. I again gave him instructions for mouthguard for this that which can be purchased at a local pharmacy.He does not mention any abnormal movements in his sleep as was conveyed to me via last year's religion teacher via his . At that point, I had asked for him to talk to primary care for sleep medicine referral. (Although his initial diagnosis was with seizure during sleep, his now knows what seizure looks like and would have said seizure not abnormal movements, I believe.) >>>>>>>>>>>>Garett r 2023Since October 14, 2023 Neurology follow-up encounter, he has had no seizures. He continues on oxcarbazepine 600 mg twice a day without side effects. [...] to his at sometimes he bites his lip h e finds out when he wakes [...] medication changes. 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 He is tolerating his seizure medications without [...] visual changes and will be seeing his rate inserter. >>>>>>>>>>>>October 03, 2022Since January 10 2022 neurology [...] that seizure.) The increase was started by [facility] emergency room right after the seizure [...] team that attended to him during his [facility] hospitalization): In mid February 2015, he [...] he was told. He was taken to [facility]. 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 He reports that his mother never said he had anything other than a normal and delivery, with learning to walk and talk at the normal times. He went through normal schooling through high school. He has no history of brain infection. Among his close family members, his daughter has had seizures. Brandon Inman MD [address] [place] [address] [place], [phone], [facility] 05/16/2025 13:45:25
--- OUTSIDE RECORDS SUMMARY | 2025-06-30 03:38 | XMS_ITS | Encounter Summary ---
Author Organization [employer] [facility] Address [address] [facility] 7t [place] [address] Care Team Providers Care Textile Science Technician Name Role Phone Name, Braydon COLE Primary Care Provider [phone] Encounter Details Date Type Department Care Team (Latest Contact Info) Description 04/02/2019 Abstract [facility] CONVERSIONS Dental, Provider, DDS Social History [...] on filedocumented in this encounter Care Teams Textile Science Technician Relationship Specialty Start Date End Date Name, MD Braydon [address] [place] [address] PCP - General Family Medicine 08/11/18 documented as of this encounter
--- OUTSIDE RECORDS SUMMARY | 2025-06-30 03:38 | XMS_ITS | Encounter Summary ---
Author Organization [employer] Address [address] [facility] 7t [place] [address] Care Team Providers Care Custodial Manager Name Role Phone Name, Braydon COLE Primary Care Provider [phone] Encounter Details Date Type Department Care Team ([facility] st Contact Info) Description 02/17/2024 Orders Only [facility] MEDICINE [address] [place] [address] Name, MD Braydon [address] [place], [place] [phone] Social History Tobacco Use Types Packs/Day Years [...] documented as of this encounter Care Teams Custodial Manager Relationship Specialty Start Date End Date Name, MD Braydon [address] [place] [address] PCP - General Family Medicine 08/11/18 documented as of this encounter
--- OUTSIDE RECORDS SUMMARY | 2025-06-30 03:38 | XMS_ITS | Clinical Summary ---
Author Organization [employer] Address [address] [place] [address] 7t [place] [address] Care Team Providers Care Service Station Manager Name Role Phone Name, Braydon COLE Primary Care Provider [phone] Allergies Active Allergy Reactions Criticality Noted Date [...] EACH NOSTRIL TODOS LOS MCGUIRE 48 mL 5 Active cetirizine [...] LOS MCGUIRE 90 tablet 3 5 Active albuterol 108 (90 Base) MCG/ACT inhaler INHALE DANDO 2 SOPLIDOS CADA 4 HORAS CUANDO SEA NECESARIO PARA LA FALTA DE RESPIRACION/LA SIBILANCIA 18 g 5 Active hydroCHLOROthiaz demian 12.5 MG tabletIndication s:Hypertension, unspecified type TAKE 1 TABLET BY MOUTH EVERY DAY 90 tablet 1 5 Active tamsulosin (Flomax) 0.4 MG 24 hr capsuleIndicatio ns:Benign prostatic hyperplasia with nocturia TOME 2 CAPSULAS POR VIA ORAL AL ACOSTARSE 180 capsule 5 Active omeprazole (PriLOSEC) [address] capsuleIndicatio ns:Heartburn TOME 1 CAPSULA POR VIA ORAL 30 MINUTES TO 1 HOUR BEFORE A MEAL 90 capsule 1 5 Active amLODIPine (Norvasc) 10 MG tabletIndication s:Hypertension, unspecified type TOME 1 TABLETA POR VIA ORAL TODOS LOS MCGUIRE EN LA MANANA 90 tablet 1 5 Active cyanocobalamin (Vitamin B-12) 1000 MCG tablet TOME 1 TABLETA POR VIA ORAL TODOS LOS MCGUIRE 90 tablet 1 5 Active finasteride (Proscar) 5 MG tabletIndication s:Benign prostatic hyperplasia, unspecified whether lower urinary tract symptoms present TAKE 1 TABLET BY MOUTH EVERY DAY 90 tablet 1 5 Active Active Problems Problem Noted Date Diagnosed Date CVA (cerebrovascular accident) ([facility]) 024 History of BPH 03/15/2024 Chronic knee pain 03/15/2024 Olecranon bursitis of right elbow 05/07/2023 Cerebrovascular accident (CVA) ([facility]) 023 History of male genital system disorder 02/08/20 23 Myocardial infarction 02/07/2023 Synovial cyst of knee 02/07/2023 Coronary arteriosclerosis in patient with history of previous myocardial infarction 02/04/2022 CAD (coronary artery disease) 02/15/2021 Overview (02/07/2023): Last Assessment & Plan: The patient was noted to have mild coronary artery disease on her left heart catheterization done in 2016 after he presented to the hospital with [...] ANTIBODY 0.0-1.1 AU/mL 7.1 (A) Seizure disorder (CMS/HCC) 03/03/2015 Vitamin B12 deficiency 12/26/2011 Allergic rhinitis 12/07/2009 Resolved Problems Problem Noted Date Diagnosed Date Resolved Date Chest pain 08/30/2014 03/18/2024 Encounters Date Type Department Care Team Description 05/17/2025 Refill [facility] MED[facility] [address] [place] [address] Name, MD Braydon Benign prostatic hyperplasia, unspecified whether lower urinary tract symptoms present 04/27/2025 Refill [facility] [address] [place] [address] Name, MD Braydon 04/21/2025 Telephone [facility] [address] [place] [address] Treva PRESLEY Delcid nov recalls 04/13/2025 Refill [facility] [address] [place] [address] Name, MD Braydon Heartburn; Hypertension, unspecified type 04/09/2025 Refill [facility] [address] [place] [address] Name, MD Braydon Benign prostatic hyperplasia with nocturia 04/05/2025 Orders Only [facility] External Provider, [facility] from Last 3 Months Immunizations Immunization Administration [...] Use Screening 1962 Hepatitis C Screening 12/09/1969 RSV Patients and Patients Aged 60 years or older (1 - Risk 50-74 years 1-dose series) 12/09/2001 Zoster Vaccines (1 of 2) 12/09/2001 SDOH Screening 02/08/2024 02/07/2023 COVID-19 Vaccine (4 - season) 2025 06/25/2022, 06/25/2021, 10/25/2020 Influenza Vaccine [...] PM EDT Narrative 04/05/2025 2:28 PM EDT [address] [address] Ultrasound Report Signed Patient: Bipin Devine MR#: [id number] : 1950 Acct:[id number] Age/Sex: 74 / M ADM Date: 04/05/25 Loc: HO.US Attending Dr: Tamiko LIPSCOMB Ordering Physician: Tamiko Goldstein Date of Service: 04/05/25 Procedure(s): US retroperitoneal comp Accession Number(s): [id number] cc: Tamiko Goldstein [facility]; Name,Braydon COLE EXAMINATION: US RETROPERITONEAL COMPLETE (RENAL) [...] 04/05/25 1425 DD/ 1358 TD/TT: 04/05/25 1412 Forensic Materials Engineer: Procedure Note Donotuseinterpreter, Image - 04/05/[address] [address] Ultrasound Report Signed Patient: Bipin DevineMR#: [id number] : 1950cct:[id number] Age/Sex: 74 / MADM Date: 04/05/25 Loc: HO.US Attending Dr: Tamiko SANTANA Ordering Physician: Tamiko Goldstein Date of Service: 04/05/25 Procedure(s): US retroperitoneal comp Accession Number(s): [id number] cc: Tamiko Goldstein; Name,Braydon COLE EXAMINATION: US [...] 04/05/25 1425 DD/ 1358 TD/TT: 04/05/25 1412 Forensic Materials Engineer: us [facility] External Provider IMG US PROCEDURES Final Result * Lipid Panel, Standard (03/16/2024 10:14 AM EDT) Triglycerides 58 <150 mg/dL [facility] Comment:Desirable Triglyceri de: less than 150 mg/dLBorderline High Triglyceride 150-199 mg/dLHigh Triglyceride: 200-499 mg/dLVery High Triglyceride: greater than or equal to 5OO mg/dL Cholesterol 114 <200 mg/dL [facility] Comment:Desirable Cholestero l: less than 200 mg/dLBorderline High Cholesterol: 200-239 mg/dLHigh Cholesterol: greater than 239 mg/dL LDL Cholesterol Calculated 43 <100 mg/dL [facility] Comment:Desirable LDL: less than 100 mg/dLNear Optimal/Above Optimal LDL: 110- 129 mg/dLBorderline High LDL: 130-159 mg/dLHigh LDL: 160-189 mg/dLVery High LDL: greater than or equal to 190 mg/dL HDL Cholesterol 60 >40 mg/dL [facility] Comment:Desirable HDL: great er than 40 mg/dL Note: This HDL assay may give artificially low results in patients with liver disease. Blood Venous blood specimen / Unknown 03/16/2024 10:14 AM EDT 03/16/2024 11:14 AM EDT Braydon Owusu MD LAB BLOOD ORDERABLES Final Resul t [facility] [address] [place] [employer], [place] [phone] from Last 3 Months or Most Recently Relevant to Health Maintenance Insurance [facility] INTERMEDIATE OPTIONS (HMO D-SNP) ELISEO NAVARRETE [id number] Care Teams Service Station Manager Relationship Specialty Start Date End Date Name, MD Braydon [address] [place] [address] PCP - General Family Medicine 08/11/18
--- OUTSIDE RECORDS SUMMARY | 2025-06-30 03:38 | XMS_ITS | Encounter Summary ---
Author Organization [employer] [facility] Address [address] [facility] 7t [place] [address] Care Team Providers Care Wood Patternmaker Apprentice Name Role Phone Name, Braydon COLE Primary Care Provider [phone] Encounter Details Date Type Department Care Team (Late st Contact Info) Description 10/07/2022 Orders Only [facility] MEDICINE [address] [place], [place] [phone] Xiomara Young LPN Social History Tobacco Use [...] on filedocumented in this encounter Care Teams Wood Patternmaker Apprentice Relationship Specialty Start Date End Date Name, MD Braydon [address] [place] [address] PCP - General Family Medicine 08/11/18 documented as of this encounter
--- OUTSIDE RECORDS SUMMARY | 2025-06-30 03:38 | XMS_ITS | Encounter Summary ---
Author Organization [employer] Address [address] [facility] 7t [place] [address] Care Team Providers Care Airplane Pilot Photogrammetry Name Role Phone Name, Braydon COLE Primary Care Provider [phone] Encounter Details Date Type Department Care Team ([facility] st Contact Info) Description 09/09/2022 Orders Only [facility] [address] [place] [address] Lily Barber LPN Social History Tobacco Use [...] on filedocumented in this encounter Care Teams Airplane Pilot Photogrammetry Relationship Specialty Start Date End Date Name, MD Braydon [address] [place] [id number] PCP - General Family Medicine 08/11/18 documented as of this encounter
--- OUTSIDE RECORDS SUMMARY | 2025-06-30 03:38 | XMS_ITS | Encounter Summary ---
Author Organization [employer] [facility] Address [address] [facility] 7t [place] [address] Care Team Providers Care Bottom Turning Lathe Tender Name Role Phone Name, Braydon COLE Primary Care Provider [phone] Encounter Details Date Type Department Care Team (Latest Contact Info) Description 08/06/2021 Abstract [facility] CONVERSIONS Dental, Provider, DDS Social History [...] on filedocumented in this encounter Care Teams Bottom Turning Lathe Tender Relationship Specialty Start Date End Date Name, MD Braydon [address] [place] [address] PCP - General Family Medicine 08/11/18 documented as of this encounter
--- OUTSIDE RECORDS SUMMARY | 2025-06-30 03:38 | XMS_ITS | Encounter Summary ---
Author Organization [employer] Address [address] [facility] 7t [place] [address] Care Team Providers Care Child Welfare Caseworker Name Role Phone Name, Braydon COLE Primary Care Provider [phone] Reason for Visit * Reason Comments Med Refill Encounter Details Date Type Department Care Team ([facility] st Contact Info) Description 01/02/2025 Refill [facility] [address] [place], [place] [phone] Lily Watt DO [address] [place], [place] [phone] Social History Tobacco Use Types Packs/Day Years [...] documented as of this encounter Care Teams Child Welfare Caseworker Relationship Specialty Start Date End Date Name, MD Braydon [address] [place] [address] PCP - General Family Medicine 08/11/18 documented as of this encounter
--- OUTSIDE RECORDS SUMMARY | 2025-06-30 03:38 | XMS_ITS | Encounter Summary ---
Author Organization [employer] [facility] Address [address] [facility] 7t [place] [address] Care Team Providers Care Funeral Assistant Name Role Phone Name, Braydon COLE Primary Care Provider [phone] Encounter Details Date Type Department Care Team (Late st Contact Info) Description 09/04/2022 Orders Only [facility] MEDICINE [address] [place], [place] [phone] Xiomara Young LPN Social History Tobacco Use [...] on filedocumented in this encounter Care Teams Funeral Assistant Relationship Specialty Start Date End Date Name, MD Braydon [address] [place] [address] PCP - General Family Medicine 08/11/18 documented as of this encounter
--- OUTSIDE RECORDS SUMMARY | 2025-06-30 03:38 | XMS_ITS | Continuity of Care Document ---
Author Organization [facility] Address [address] [facility] [address] [place] [address] Care Team Providers Care Industrial/Organizational Psychologist Name Role Phone NAME, AC Referring Provider Unavailable NAME, AC Primary Care Provider [phone] Assessment Encounter Date Assessment Date Assessment LastModified by Organization Details LastModified Time 05/16/2025 05/16/2025 IMPRESSION seizure disorder -- oxcarbazepine 450 mg twice daily started in the context of a single event of abnormal movements out of sleep February 2015, witnessed by his , diagnosed as seizure at [facility], with nonspecific small foci of gadolinium uptake of uncertain significance found on brain MRI during that hospitalization, with changing foci on repeat brain MRI May 29, 2015. --generalized seizure witnessed by Friday, February 04, 2021 after being off of his medication for reason of running out after evening , February 01, 2021, with [facility] restarting oxcarbazepine at higher dose, 600 mg [...] 14, 2023 BMP normal including sodium 137 >>>>>>>>>>>>Octo ronnie 2024 We agreed to make no changes in the oxcarbazepine. >>>>>>>>>>>>Sept ember 2023 For seizure disorder, we will make [...] standard for an individual of his age. >>>>>>>>>>>>Michael h 2023: He has not had any interval [...] accepts. He prefers a physical therapist in [place] where he lives. PLAN Bipin Mcgrath May 16, 2025 To prevent seizures: CONTINUE Oxcarbazepine (brand name Trileptal) 300 mg tablet 2 tablets twice daily Follow-up in 10months, please continue to bring someone from your restorationist who can assist with Dominican translation mikel Not available 05/16/2025 13:45:10 Plan of Treatment Reminders Order Date Submit Date Provider Last Modified By Organization Details Last Modified Time Details Appointments FOLLOW UP EXT 2025 02:30P Lexa Inman MD PhD Not available Not available Not available Lab None recorded. Referral None recorded. Procedures None recorded. Surgeries None recorded. Imaging None recorded. Medication Orders oxcarbaze pine 600 mg tablet 2024 025 [facility] #[id number], [address], [place], [address], 05/16/2025 13:25:37 Patient TargetsNo targets recorded. Patient Instructions Encounter Date Encounter Id Patient Instructions Last Modified By Organization Details Last Modified Time 05/16/2025 [id number] PREVIOUS MEDICATION Keppra 500 mg twice a [...] shifting MRI enhancing foci almost excludes neoplasm--although PRE CODER lymphoma can theoretically fluctuate. Autoimmune etiology is [...] Not available 05/16/2025 13:45:12 Reason for Referral None Reported. Procedures Surgical History Date Name Laterality Status Provider Name and Address Organization Details Recorded Time 05/16/2025 DATA REVIEW completed Brandon Inman MD [address] [place] [address], [place], [phone], [facility] 05/16/2025 13:17:36 04/14/2024 DATA REVIEW completed Brandon Inman MD [address] [place] [address] B, [place], [phone], [facility] 04/14/2024 14:54:48 10/14/2023 DATA REVIEW completed NAIN CHA PA-C [address] [place] [address] B, [place], [phone], [facility] 10/14/2023 11:35:41 04/08/2023 DATA REVIEW completed NAIN CHA PA-C [address] [place] [address] [place], [phone], [facility] 04/08/2023 14:04:02 10/03/2022 DATA REVIEW completed NAIN CHA PA-C [address] [place] [address] B, [place], [phone], [facility] 10/03/2022 13:57:10 01/10/2022 DATA REVIEW completed Brandon Inman MD [address] [place] [address] [place], [phone], [facility] 01/10/2022 12:37:24 02/08/2021 DATA REVIEW completed Brandon Inman MD [address] [place] [address] [place], [phone], [facility] 02/08/2021 12:41:08 Imaging Results None recorded. 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 Health Concerns Section Related Observation LastModified by Organization Detai ls LastModified Time None Recorded Concern Status LastModified by Organization Details LastModified Time None Recorded Payers Encounter Date Sequence Insurance Name Policy Number Policy Mullins Covered Member ID Mullins Member ID Guarantor Name 05/16/2025 1 [facility] - DOS ON OR AFTER 2022 - MEDICARE [place]AGE [place]MED[place]ARE REPLACEMENT/ADV ANTAGE - PPO) Bipin Mcgrtah [id number] Bipin Mcgrath Notes Date Note Type Note Provider Name and Address Organization Details Recorded Time 05/16/2025 text/html Follow-up of generalized seizure disorder: February 2015 diagnosis at [facility]: witnessed abnormal movements during sleep; Oxcarbazepine 450 mg twice daily => no recurrence; March 06, 2021 recurrence after being off medication, reason unknown; oxcarbazepine 600 mg twice daily then restarted at hospital, reason for increase unknown; He is accompanied as usual by 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 >>>>>>>>>>>>May 16, 2025Since April 14, 2024 Neurology [...] was conveyed to me via last year's inventory auditor via his . At that point, I had asked for him to talk to primary care for sleep medicine referral. (Although his initial diagnosis was with seizure during sleep, his now knows what seizure looks like and would have said seizure not abnormal movements, I believe.) >>>>>>>>>>>>Garett 2023Since October 14, 2023 Neurology follow-up encounter, [...] medication changes. 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 He is tolerating his seizure medications without [...] visual changes and will be seeing his injection machine operator. >>>>>>>>>>>>October 03, 2022Since January 10 2022 neurology [...] that seizure.) The increase was started by [facility] emergency room right after the seizure and [...] team that attended to him during his [facility] hospitalization): In mid February 2015, he was [...] he was told. He was taken to [facility]. 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 He reports that his mother never said he had anything other than a normal and delivery, with learning to walk and talk at the normal times. He went through normal schooling through high school. He has no history of brain infection. Among his close family members, his daughter has had seizures. Brandon Inman MD [address] [place] [address] [place], [phone], [facility] 05/16/2025 13:45:25
--- OUTSIDE RECORDS SUMMARY | 2025-06-30 03:38 | XMS_ITS | Encounter Summary ---
Author Organization [facility] Address [address] [facility] [address] [place] [address] Care Team Providers Care Front Office Administrator Name Role Phone Name, Braydon COLE Primary Care Provider [phone] Encounter Details Date Type Department Care Team (Late st Contact Info) Description 11/11/2022 Orders Only [facility] [address] [place], [place] [phone] Xiomara Young LPN Social History Tobacco Use [...] on filedocumented in this encounter Care Teams Front Office Administrator Relationship Specialty Start Date End Date Name, MD Braydon [address] [place] [address] PCP - General Family Medicine 08/11/18 documented as of this encounter
--- OUTSIDE RECORDS SUMMARY | 2025-06-30 03:38 | XMS_ITS | Encounter Summary ---
Author Organization [employer] Address [address] [facility] [address] [place] [address] Care Team Providers Care Chief Deputy Sheriff Name Role Phone Name, Braydon COLE Primary Care Provider [phone] Encounter Details Date Type Department Care Team ([facility] st Contact Info) Description 10/14/2022 Orders Only [facility] [address] [place] [address] Lily Barber LPN Social History Tobacco Use [...] on filedocumented in this encounter Care Teams Chief Deputy Sheriff Relationship Specialty Start Date End Date Name, MD Braydon [address] [place] [id number] PCP - General Family Medicine 08/11/18 documented as of this encounter
--- OUTSIDE RECORDS SUMMARY | 2025-06-30 03:38 | XMS_ITS | Data Portability ---
Author Organization [facility] Address [address] [place] [address] Care Team Providers Care Boiling House Hand Name Role Phone Unavailable Referring Provider [phone] HIM CCA OTHER Assessment Encounter Date Assessment Date Assessment LastModified by Organization Details LastModified Time 10/23/2022 10/23/2022 I have reviewed and agree with the assessment and plan as documented by the collar turner. I provided real time medical direction for this encounter and was immediately available to provide additional phone based assistance as needed. History as noted by collar turner. Pt with several days of dizziness. [...] Diagnosis d/w the pt with help of assisted living nursing director over phone. Pt has no concerning neuro [...] BMP, serum or plasma 2022 023 [facility] [address] [place] [address], [phone] 3 11:16:42 hemoglobin + hematocrit, blood 2022 023 [facility]s [facility] [address] [place] [address], [phone] 3 11:16:42 culture, urine 2021 022 RL [facility] (Centralized Electronic Ordering - All Locations), Patient Can Go To The Location Of Their Choice, 08:40:44 Referral None recorded. Procedures None recorded. Surgeries None recorded. Imaging electrocard iogram 2022 023 [facility], [address] [place] [address], [phone] 3 11:16:42 Medication Orders meclizine 25 mg tablet 2022 023 [facility] #[id number], [address] [place], [address], 11:16:46 meclizine 25 mg tablet 2022 023 [...] The Location Of Their Choice, 12/14/2021 00:16:12 10/24/19 23 10/23/2022 hemog lobin + hemat ocrit , blood Hemoglobin 16.7 Not Available Main - [address], [address] 10/23/2022 11:15:07 10/24/19 23 10/23/2022 hemog lobin + hemat ocrit , blood Hematocrit 49 Not Available Main - [address], [address] 10/23/2022 11:15:07 10/24/19 23 10/23/2022 BMP, serum or plasm a BUN 12 Not Available Main - Ins [address], [address] 10/23/2022 11:14:55 10/24/19 23 10/23/2022 BMP, serum or plasm a CI- 95 Not Available Main - Ins [address], [address] [place] [address] 10/23/2022 11:14:55 10/24/19 23 10/23/2022 BMP, serum or plasm a CRE 1.1 Not Available Main - Ins [address], [address] [place] [address] 10/23/2022 11:14:55 10/24/19 23 10/23/2022 BMP, serum or plasm a GLU 89 Not Available Main - Ins [address], [address] [place] [address] 10/23/2022 11:14:55 10/24/19 23 10/23/2022 BMP, serum or plasm a K+ 4.1 Not Available Main - Ins [address], [address] [place] [address] 10/23/2022 11:14:55 10/24/19 23 10/23/2022 BMP, serum or plasm a Na+ 132 Not Available Main - Ins [address], [address] [place] [address] 10/23/2022 11:14:55 10/24/19 23 10/23/2022 BMP, serum or plasm a tCO2 27 Not Available Main - Ins [address], [address] [place] [address] 10/23/2022 11:14:55 10/24/19 23 10/23/2022 elect liz wells am No observ ation record ed. btils Main - [facility] [address] [place] [address], [address] [place] [address] 10/23/2022 11:16:44 Result Notes None recorded. Medical Equipment None Reported. Allergies Allergen ID Allergen Name Allergen Category Reaction Reaction Severity Criticality Documentation Date Start Date Code Code System Note Provider Name and Address Organization Details Recorded Time 7863 Product containin g penicilli n (product) medicatio n Not available Not available Not available 06/08/2024 73530 8001 SNOMED Not Available [facility] - production [...] Available No t Available Vitals Date Recorded Oxygen saturation Oxygen saturation in Arterial blood by Pulse oximetry Body temperature Heart rate Respiratory rate Respiratory rate Heart rate Oxygen saturation Oxygen saturation in Arterial blood by Pulse oximetry Body temperature Oxygen saturation Oxygen saturation in Arterial blood by Pulse oximetry Provider Name and Address Organization Details Last Updated DateTime 3 99 % 99 % 97.5 [degF] 70 /min 14 /min 14 /min 70 /min 99 % 99 % 97.5 [degF] 99 % 99 % Not Available [facility] - production 3 11:45:40 Date Recorded Respiratory rate Body temperature Heart rate Systolic And Diastolic Systolic And Diastolic Systolic And Diastolic Provider Name and Address Organization Details Last Updated DateTime 3 14 /min 97.5 [degF] 70 /min 133/75 mm[Hg] 133/75 mm[Hg] 133/75 mm[Hg] Not Available [facility] - production 3 11:45:40 Date Recorded Heart rate Oxygen saturation Oxygen saturation in Arterial blood by Pulse oximetry Body temperature Respiratory rate Systolic And Diastolic Provider Name and Address Organization Details Last Updated DateTime 2 68 /min 96 % 96 % 98.1 [degF] 18 /min 140/90 mm[Hg] Not Available [facility] - production 2 18:06:34 Social History None recorded. Functional Status None recorded. Mental Status None recorded. Family History Nothing Reported. Medical History No medical history recorded. Past Encounters Encounter ID Performer Location Encounter Start Date Encounter Closed Date Diagnosis/Indication Diagnosis SNOMED-CT Code Diagnosis ICD10 Code Diagnosis IMO Codes Diagnosis Note [id number] Iftikhar Peter MD Main - [facility] [address] [place] [phone] 12/13/2021 18:06:18 05/03/2022 15:51:59 Dysuria 63988053 R30.9 Will await urine culture prior to treatment- Not able to do G/C test today; advised to f/u with PCP re: alternativ e causes for dysuria including STI's- Advised on red flag signs for when to follow-up [id number] Sam Sabillon MD Main - [facility] [address] [place] [phone] 03/27/2022 18:39:58 05/07/2022 15:42:32 Gastroenteritis [id number] K52.9 This 80-year-ol d male has had [...] with this plan. [id number] Jacob Avila MD [facility] [address] [place] [phone] 10/23/2022 11:04:37 10/25/2022 10:57:12 Benign paroxysmal positional vertigo [id number] H81.13 Health Concerns Section Related Observation LastModified by Organization Detai ls LastModified Time None Recorded Concern Status LastModified by Organization Details LastModified Time None Recorded Advance Directives Directive None Recorded Payers Insurance Date Sequence Insurance Name Policy Number Policy Mullins Covered Member ID Mullins Member ID Guarantor Name 11/03/2024 1 [facility] - DOS PRIOR TO 2022 - DUAL ELIGIBLE (MEDICARE REPLACEMENT/ADV ANTAGE - HMO) Bipin Joshia [id number] Bipin Joshia 11/03/2024 1 [facility] - DOS ON OR AFTER 2022 - DUAL ELIGIBLE - LONG TERM OPTIONS AND ONE CARE (MEDICARE REPLACEMENT/ADV ANTAGE - HMO) Bipin Joshia [id number] Bipin Mcgrath Notes Date Note Type Note Provider Name and Address Organization Details Recorded Time 12/13/2021 text/html ROS as noted in the HPI HPI: Member said he has been having pain whenever he urinates. He denies having nausea and fever. Note:- Dysuria- Not frequent uti's- Not able to do G/C test today; advised to f/u with PCP re: alternative causes for dysuria including STI's Iftikhar Peter MD [address] [place] [address],[address], [place], [address], [email or web address] 12/13/2021 18:11:19 03/27/2022 text/html ROS as noted in the HPI HPI: Patient reports having mild diarrhea and abdominal pain x 4 days. Onset was 03/25/22. Watery yellow. No blood in stool. No vomiting. Mild dizziness. Pt states has used OTC Imodium with no relief. Seen at [facility] 03/25/22 negative COVID-19. Pt unable to come into walk in center. Needs assessment and to r/o dehydration. .................. .................. .................. .................. .................. .................. .................. ............... CRC Nursing Assessment: Comments: CRC RN DID NOT NEED MORE INFO Sam Sabillon MD [address] [place] [address],[address], [place], [phone], [employer] 03/27/2022 18:46:05 10/23/2022 text/html ROS as noted in the HPI This was a supervised home visit with collar turner Lisandro Tate. HPI: Member said he has been having dizziness since friday. He said he gets really dizzy when he gets up. he check his bp this afternoon it was 154/77. .................. .................. .................. .................. .................. .................. .................. ............... CRC Nursing Assessment: Comments: Email sent to requestor with high importance at [facility] to see how she would like to proceed as our medics are grounded until further notice- Maame 10/22 2:09p- received email back from [facility], visit tomorrow will be accepted, she is to notify member- Maame .................. .................. .................. .................. .................. .................. .................. ............... 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 strong language barrier, used assisted living nursing director throughout. Pt complains of dizziness 3 days, started while he was working. Pt denies pain, nausea, vomiting or any other complaints. Pt states it feels like his head is spinning. Pt states its the same if he lays down or walks. Pt denies recent trauma or falls. Orthostatic VS unchanged, BMP and 12 lead as noted, no significant findings. CMS intact, pupils equal and reactive to light. [facility] contacted and orders meclazine 25mg and will call in a RX to local pharmacy. Meclazine administered, no change in pt condition. Pt left with family in home. Pt advised to follow up with PCP and red flags and pt education discussed. [employer] Allergies: Penicillin .................. .................. .................. .................. .................. .................. .................. ............... Disposition: Fulfilled Jacob Avila MD [address] [facility], [place], [address], [email or web address] 10/23/2022 14:16:53
== END 2025-06-29 15:27 | disposition home or self-care (01) ==
LOC: HO.HUSH 15:03
PROVIDERS: PCP Internal Medicine Geriatric Medicine; Visit Provider Nurse Practitioner Family
DX: N20.0 Calculus of kidney (principal); N40.1 Benign prostatic hyperplasia with lower urinary tract symptoms; R39.11 Hesitancy of micturition; R39.14 Feeling of incomplete bladder emptying; R30.0 Dysuria; N40.0 Benign prostatic hyperplasia without lower urinary tract symptoms
CPT/HCPCS: 99213; G2211

== ENCOUNTER → 2025-06-29 15:02 | Outpatient (BNVA) | payer OTHER, SELFPAY | PROVIDERS: PCP Internal Medicine Geriatric Medicine; Visit Provider Nurse Practitioner Family | DX: N20.0 Calculus of kidney (principal); N40.1 Benign prostatic hyperplasia with lower urinary tract symptoms; R39.11 Hesitancy of micturition; R39.14 Feeling of incomplete bladder emptying; R30.0 Dysuria; N40.0 Benign prostatic hyperplasia without lower urinary tract symptoms | CPT/HCPCS: 51798; 99212 ==